=== PATIENT | female | born 1940 | race Hispanic/Latino ===

== ENCOUNTER → 2017-07-29 | Outpatient (CLI) | payer MEDICARE ==
[~2017-07-29] MED LIST: ALENDRONATE SOD70 MG PO; ANTIVERT25 MG PO; BACTROBAN15 G1; CYCLOBENZAPRINE10 MG PO; DOXYCYCLINE HY100 M2 IV; FLONASE16 GM NS; FLUNISOLIDE25 M1; GLUCOSAMINE HC500 MG PO; HYDROCODON-ACE1 EA12 PO; IBUPROFEN400 MG PO; LEVOCETIRIZINE D5 MG PO; LOSARTAN POTAS100 MG PO; NEXIUM40 M1 PO; NYSTATIN100000 UNI PO; PATANASE30.5 GM; PEDIADERM TA 0115 GM; POLYETHYLENE GL17 GM PO; PROAIR HFA INH8.5 GM INH; SYMBICORT 16010.2 GM INH; TESSALON PERLE100 MG PO; TOPROL XL100 MG PO; VENTOLIN HFA18 GM INH; VITAMIN C500 M1 PO; VITAMIN D35000 UNIT PO; VITAMIN E400 UNI4 PO; VOLTAREN100 GM; ZOFRAN4 MG SL
--- NOTE | 2017-07-30 00:37 | Diagnostic Imaging Report ---
History: Cough and sinus congestion for one month. Comparison studies: None Technique: Axial images were obtained through the paranasal sinuses. Coronal and sagittal images reconstructed from the axial data. Intravenous contrast: None Findings: Right anterior complex: Frontal sinus: Clear. Frontonasal recess: Clear. Anterior ethmoid air cells: Minimal mucosal thickening Ostiomeatal unit: Mild mucosal thickening narrows the osteomeatal unit Maxillary sinus: Mild circumferential mucosal thickening with bubbly secretions. Left anterior complex: Frontal sinus: Clear. Frontonasal recess: Mild mucosal thickening Anterior ethmoid air cells: Minimal mucosal thickening. Ostiomeatal unit: Mucosal thickening results in near complete obstruction of the osteomeatal unit. Maxillary sinus: Moderate circumferential mucosal thickening. Posterior complex: Sphenoid sinuses: Mild mucosal thickening in right sphenoid sinus. Sphenoethmoidal recesses: Not well visualized Posterior ethmoid air cells: Clear. Other: Nasal vestibule and cavity: Patent Nasal septum: At midline. Agger Nasi: Minimal mucosal thickening Turbinates: Partially pneumatized right middle turbinate. Aurelia cells: None Lamina papyracea: Intact. Cribriform plates: Symmetric, 3.8 mm on the right and 3.6 mm on the left below the level of the fovea ethmoidalis. Olfactory recesses: Clear Optic nerves: Not dehiscent Onodi cells: None Internal carotid arteries: from the sphenoid sinuses by thin osseous septum Sphenoid sinuses: Mild mucosal thickening in right sphenoid sinus. The lateral recesses are aerated on the left, opacified on right. Sphenoid septum: Deviated towards the right. Orbits: No abnormalities. Bones: No abnormalities. Temporal bones: Mild opacification of the posterior and inferior aspect of left mastoid air cells/mastoid tip. IMPRESSION: 1. Mild mucosal inflammatory changes in right maxillary, ethmoid air cells, left ethmoid and right sphenoid sinuses. 2. Moderate mucosal inflammatory changes in left maxillary sinus. Signed by: Dr. Ludy Cook M.D. on 07/30/2017 12:34 AM
== END ==
LOC: CT 18:25
PROVIDERS: ATTEND Otolaryngology
DX: J32.8 Other chronic sinusitis (principal)
CPT/HCPCS: 70486

== ENCOUNTER → 2018-06-16 | Outpatient (CLI) | payer MEDICARE ==
[~2018-06-16] MED LIST changes: +SODIUM CHLORIDE 0.9% 500ML 0 ML ONE
[2018-06-16 18:34] LABS: CREATININE, SERUM 1.18 mg/dL (0.57-1.11)
--- NOTE | 2018-06-17 08:46 | Diagnostic Imaging Report ---
EXAM: CT Chest without contrast DATE/TIME: 06/16/2018 12:00 AM INDICATION: Hemoptysis COMPARISON: CT Abdomen/Pelvis 11/18/[address] Chest 07/17/2017. TECHNIQUE: Chest was scanned utilizing a multidetector helical scanner from the lung apex through the level of the adrenal glands without administration of IV contrast. Coronal and sagittal reformations were obtained. Routine protocol was performed. RADIATION DOSE: Total DLP: 832.2 mGy*cm Estimated effective dose: (DLP x 0.014 x size factor) mSv COMPLICATIONS: None FINDINGS: LINES/ TUBES: None. LUNGS AND AIRWAYS: The central airways are patent. Patchy dependent bilateral lower lobe subsegmental atelectasis. Biapical pleural parenchymal opacity, left greater than right. There is a 3 mm likely calcified solid pulmonary nodule in the left upper lobe on series 107, image 62, unchanged from 07/17/2017. PLEURA: The pleural spaces are clear. HEART AND MEDIASTINUM: The thyroid gland is normal. No mediastinal, hilar or axillary lymphadenopathy. No pericardial effusion. There is no pericardial effusion. Atherosclerotic calcifications of the aortic arch and great vessel origins are noted. The main pulmonary artery measures 3.4 cm. Ectatic ascending thoracic aorta measuring 3.7 cm. UPPER ABDOMEN: Limited non-contrast views of the upper abdomen show no abnormality within the visualized kidneys or adrenal glands. There is mild hyperdense appearance of the liver measuring 81 HU. There is a 1.8 cm hypodense lesion in the posterior right hepatic lobe, with slightly increased calcifications compared to abdominal CT from 11/09/2014, likely a result of prior infection or trauma. Extensive atherosclerotic changes of the abdominal aorta. Subcentimeter splenic lesion is too small to characterize but unchanged in size compared to CT on 11/18/2014. BONES AND SOFT TISSUES: No acute bony findings. Multilevel degenerative changes of the visualized spine. IMPRESSION: No acute intrathoracic findings on CT. Enlarged main pulmonary artery measuring up to 3.4 cm, suggestive of pulmonary arterial hypertension. Mildly increased hepatic density which could reflect medication related changes or conditions such as iron deposition. Signed by: Dr. Sharon Patricio MD on 06/17/2018 8:42 AM
== END ==
LOC: CT 17:38
PROVIDERS: ATTEND Otolaryngology
DX: R04.2 Hemoptysis (principal)
CPT/HCPCS: 36415; 71250; 82565; 84520; J7040

== ENCOUNTER → 2018-12-29 | Day surgery (SDC) | payer MEDICARE ==
[2018-12-23 16:43] LABS: BASOPHILS % 0.3 % (0.0-1.0); EOSINOPHILS # (AUTO) 0.1 (0.0-0.4); HEMATOCRIT 33.7 % (34.2-44.1); LYMPHOCYTES # (AUTO) 1.7 (1.0-3.2); MEAN CORPUSCULAR HEMOGLOBIN 30.6 pg (28-32); MEAN CORPUSCULAR HGB CONC 32.6 g/dL (31-35); MEAN CORPUSCULAR VOLUME 93.6 fL (81-99); MONOCYTES # (AUTO) 0.6 (0.2-0.8); MONOCYTES % 9.9 % (4.4-11.3); NEUTROPHILS # (AUTO) 3.4 (2.1-6.9); NEUTROPHILS % 59.6 % (38.7-80.0); PLATELET COUNT 230 x10e3/uL (140-360); RED CELL DISTRIBUTION WIDTH 13.9 % (11.7-14.4)
--- NOTE | 2018-12-23 17:07 | Diagnostic Imaging Report ---
Frontal and lateral views of the chest. HISTORY: PREOP, carpal tunnel surgery COMPARISON: CT of the chest June 16, 2018. DISCUSSION: Lungs: The lungs appear mildly hyperinflated. No evidence of a consolidative pneumonia or pulmonary alveolar edema. Pleura: No pleural effusion or pneumothorax. Heart and mediastinum: The cardiomediastinal silhouette appears unremarkable. Bones and soft tissues: Multilevel mild to moderate degenerative changes of the thoracic spine. IMPRESSION: 1. No acute radiographic abnormality. 2. Findings which could be seen in the setting of mild COPD. Signed by: Dr. Elliot Valentin D.O., M.M.M. on 12/23/2018 5:04 PM
[~2018-12-29] MED LIST changes: +ALLEGRA ALLERG180 MG PO; +AMIODARONE HCL200 MG PO; +BENZONATATE100 MG PO; +BUPIVACAINE HCL 0.5% INJ 30 ML VIAL INJ ONE; +CEFAZOLIN SOD 1 GM/NS 50ML 0 ML IV ONE; +CLINDAMYCIN 600MG / 50ML 0 ML IV ONE; +DEXAMETHASONE SOD PHOS INJ 4 MG/ML VIAL ONE; +FUROSEMIDE40 MG PO; +GARLIC500 MG PO; +KETOROLAC TROMETHAMINE 30 MG/ML VIAL ONE; +LIDOCAINE HCL 2% LOCAL INJ 5 ML SDV VIAL INJ ONE; +MEPERIDINE HCL INJ 25 MG/ML VIAL ONE; +METOPROLOL SUCC50 MG PO; +MONTELUKAST SOD10 MG PO; +MULTI-VITAMIN1 EACH PO; +ONDANSETRON HCL INJ 2MG/ML 2ML 2 MG/ML VIAL ONE; +OSTEOFLEX PO; +PONARIS NASAL E30 ML; +PROPOFOL IV EMULSION 10 MG/ML 20 ML VIAL ONE; +REFRESH TEARS15 ML OU; +SALINE NOSE SPR45 ML; +SEVOFLURANE INHAL SOLN 250 ML PEN BTL ONE; -SODIUM CHLORIDE 0.9% 500ML 0 ML ONE; +SOMA350 MG PO; +SUCRALFATE1 GM PO; +TIZANIDINE HCL4 MG PO; +albuterol neb INH; +eliquis PO; +tumeric PO
--- OUTSIDE RECORDS SUMMARY | 2018-12-29 05:12 | XMS REPORT | Clinical Summary ---
Author Author [facility] Organization [facility] Address Unknown Phone Unavailable Care Team Providers Care Electrolysis Engineer Name Role Phone Bradley Dooley MD PCP Allergies Comments Active Allergy Reactions Severity Noted Date Amoxicillin 11/03/2018 Erythromycin 11/03/2018 Medications End Date Status Medication Sig Dispensed Refills Start Date Active metoprolol succinate XL 0 (TOPROL-XL) 50 mg 24 hr 8 tablet Active NEXIUM 40 mg capsule 0 9 Active amIODarone (PACERONE) 200 0 MG tablet 9 Active multivitamin (THERAGRAN) Take 1 tablet 0 tablet by mouth daily. Active cyclobenzaprine Take 10 mg by 0 (FLEXERIL) 10 mg tablet mouth 3 (three) times a day as needed for muscle spasms. Active budesonide-formoterol Inhale 2 0 (SYMBICORT) 160-4.5 puffs 2 (two) mcg/actuation inhaler times a day. Active albuterol (PROAIR Inhale 2 0 HFA,PROVENTIL puffs every 6 HFA,VENTOLIN HFA) 90 (six) hours mcg/actuation inhaler as needed for wheezing. Active eucalyptus/peppermint oil into each 0 (PONARIS NASL) nostril. Active carboxymethylcellulose Apply to eye. 0 sodium (REFRESH TEARS OPHT) Active fexofenadine (EFRAÍN) Take 180 mg 0 180 MG tablet by mouth daily. Active garlic extract 600 mg Take by 0 tablet mouth. Active sodium chloride (OCEAN) 1 spray into 0 0.65 % nasal spray each nostril as needed. Active apixaban (ELIQUIS) 5 mg Take by mouth 0 tablet 2 (two) times a day. Active glucosam/yoanna-msm1/C/jimmie Take by 0 /bosw (OSTEO BI-FLEX mouth. TRIPLE STRENGTH ORAL) Active sucralfate (CARAFATE) 1 Take 1 g by 0 gram tablet mouth 4 (four) times a day. Active UNABLE TO FIND meclison 0 Active ondansetron (ZOFRAN) 4 MG Take 4 mg by 0 tablet mouth every 8 (eight) hours as needed for nausea or vomiting. Active carisoprodol (SOMA) 350 Take 350 mg 0 MG tablet by mouth 4 (four) times a day as needed for muscle spasms. Active montelukast (SINGULAIR) Take 10 mg by 0 10 mg tablet mouth nightly. Active olopatadine (PATANOL) 0.1 1 drop 2 0 % ophthalmic solution (two) times a day. Active fluticasone propionate Inhale. 0 100 mcg/actuation blister with device Active tiZANidine (ZANAFLEX) 4 Take 4 mg by 0 MG tablet mouth every 8 (eight) hours as needed for muscle spasms. Active TURMERIC ORAL Take by 0 mouth. Active levothyroxine (SYNTHROID, Take 25 mcg 0 LEVOXYL) 25 mcg tablet by mouth daily. Active furosemide (LASIX) 40 mg Take 40 mg by 0 tablet mouth 2 (two) times a day. Active Problems Not on file Encounters Care Team Description Date Type Specialty Erich Jacob MD FLEXIBLE BRONCHOSCOPY 11/23/2018 Surgery Cardiothoracic Surgery Whit Bryson 11/23/2018 Anesthesia Cardiothoracic Surgery Event Erich Jacob MD 11/23/2018 Hospital Cardiothoracic Surgery Encounter Brandie Dodge NP 11/20/2018 Telephone Cardiothoracic Surgery Erich Jacob MD 11/05/2018 Orders Only Cardiothoracic Surgery Erich Jacob MD 11/03/2018 Hospital Radiology Encounter Erich Jacob MD 11/03/2018 Hospital Radiology Encounter Erich Jacob MD 11/03/2018 Hospital Radiology Encounter Erich Jacob MD 11/03/2018 Hospital Radiology Encounter Erich Jacob MD 11/03/2018 Hospital Radiology Encounter Erich Jacob MD Endobronchial mass (Primary Dx); Pre-op testing 11/03/2018 Office Visit Cardiothoracic Surgery Andrés Preston 11/03/2018 Telephone Employee Health Padmini Tao MD 11/03/2018 Orders Only Cardiothoracic Surgery ProviderPadmini MD 10/15/2018 Orders Only Cardiothoracic Surgery after 12/28/2017 Family History Medical History Relation Name Comments Anesthesia problems Daughter Margaret Chambers nausea vomiting Cirilo Breast cancer Daughter Jessica Sharma surviver of breast cancer Cirilo Relation Name Status Comments Daughter Margaret Kerr Daughter Jessica Kerr Social History Date Tobacco Use Types Packs/Day Years Used Never Smoker Alcohol Use Drinks/Week oz/Week Comments No Sex Assigned at Date Recorded Not on file Industry Job Start Date Occupation Not on file Not on file Not on file Travel End Travel History Travel Start No recent travel history available. Last Filed Vital Signs Time Taken Vital Sign Reading 11/23/2018 1:06 PM CDT Blood Pressure 144/65 11/23/2018 1:06 PM CDT Pulse 61 11/23/2018 1:06 PM CDT Temperature 36.3 C (97.4 F) 11/23/2018 1:06 PM CDT Respiratory Rate 18 11/23/2018 1:06 PM CDT Oxygen Saturation 99% - Inhaled Oxygen - Concentration 11/23/2018 9:56 AM CDT Weight 78.9 kg (173 lb 14.4 oz) 11/23/2018 9:56 AM CDT Height 167.6 cm (5' 6") 11/23/2018 9:56 AM CDT Body Mass Index 28.07 Plan of Treatment Health Maintenance Due Date Last Done Comments SHINGLES VACCINES (#1) 1992 65+ PNEUMOCOCCAL VACCINE 2007 (1 of 2 - PCV13) PNEUMOCOCCAL 2007 POLYSACCHARIDE VACCINE AGE 65 AND OVER INFLUENZA VACCINE 03/11/2019 Procedures Comments Procedure Name Priority Date/Time Associated Diagnosis CT AN ELECTIVE Routine 11/23/2018 ENDOTRACHEAL AIRWAY 11:01 AM CDT Procedure Note - Ophelia May MD - 11/23/2018 11:01 AM CDT Airway Date/Time: 11/23/2018 10:46 AM Performed by: Ophelia May MD Authorized by: Ophelia May MD Location: OR Urgency: Elective Anesthesio logist: Ophelia May MD Other Anesthesia Staff: Cecile Collins Performed by: other anesthesia staff Preoxygena maty with 100% O2: Yes C-spine Precaution s Maintained Throughout : Yes Mask Ventilatio n: Easy mask Final Airway Type: Endotrache al airway Final Endotrache al Airway: ETT Cuffed: Yes Technique Used: Direct laryngosco py Devices/Me thods Used in Placement: Intubatin g stylet Insertion Site: Oral Blade Type: Quiroga Laryngosco pe Blade/Vide olaryngosc ope Blade Size: 2 ETT Size (mm): 8.0 Cuff at minimum occlusion pressure: Yes Measured from: Teeth ETT to Teeth (cm): 22 Placement Verified by: CO2 detection, direct visualizat ion and equal breath sounds Laryngosco pic view: Grade IIa - partial view of glottis Rapid Sequence Induction (RSI): No Modified RSI: Yes Number of Attempts at Approach: 2 Patient pre-oxygen ated x5 minutes. Modified RSI. DLx1 by SRNA with Quiroga 2. Grade 4 view. Mask ventilated patient. O2 sats remained 100%. DL by SRNA; grade 2 view. Visualized ETT passing through vocal cords. Atraumatic intubation . No change to eyes, lips, teeth, or oral mucosa. Cuff to seal. ETT secured. PARTIAL THROMBOPLASTIN STAT 11/23/2018 TIME (PTT) 9:25 AM CDT PROTHROMBIN TIME WITH INR STAT 11/23/2018 9:25 AM CDT CBC WITH PLATELET AND Routine 11/05/2018 DIFFERENTIAL 4:42 PM CDT PROTHROMBIN TIME WITH INR Routine 11/05/2018 4:42 PM CDT PARTIAL THROMBOPLASTIN Routine 11/05/2018 TIME (PTT) 4:42 PM CDT COMPREHENSIVE METABOLIC Routine 11/05/2018 PANEL 4:[address] CHEST EXTERNAL STUDY Routine 06/16/2018 7:15 [address] EDUCATOR [address] CHEST WO CONTRAST Routine 06/16/2018 after 12/28/2017 Results * Partial thromboplastin time, activated (11/23/2018 9:25 AM CDT) Only the most recent of 2 results within the time period is included. PTT 26.5 23.0 - 36.0 sec [facility] Comment: EPISCOPAL PTT therapeutic range for HOSPITAL unfractionated heparin is 61.0-112.0 seconds which corresponds to Anti-Xa 0.3-0.7 U/ml. Specimen Blood Performing Organization Address City/State/Zipcode Phone Number [facility] DEPARTMENT OF [address] [place] [address] PATHOLOGY AND [facility] [address] * Prothrombin time with INR (11/23/2018 9:25 AM CDT) Only the most recent of 2 results within the time period is included. [facility] Prothrombin 13.1 11.5 - 14.5 sec [facility] INR 1.0 [place] Comment: EPISCOPAL The International Normalized HOSPITAL Ratio (INR) is a therapeutic monitoring tool for patients who are stable on oral anticoagulant therapy. An INR of 2.0-3.0 is suggested for deep vein thrombosis/pulmonary embolism. Specimen Blood Performing Organization Address City/State/[place] [address] PATHOLOGY AND [facility] [address] * CBC with platelet and differential (11/05/2018 4:42 PM CDT) [facility] WBC 4.6 3.8 - 10.8 [facility] Thousand/uL [facility] [place] RBC 3.61 (L) 3.80 - 5.10 [facility] Million/uL [facility] [place] HGB 11.0 (L) 11.7 - 15.5 g/dL [facility] HCT 33.5 (L) 35.0 - 45.0 % [facility] MCV 92.8 80.0 - 100.[address] [facility] MCH 30.5 27.0 - 33.0 pg [facility] [place] MCHC 32.8 32.0 - 36.0 g/dL [facility]AGNOSTICS [place] RDW 11.8 11.0 - 15.0 % [facility] Platelet count 294 140 - 400 [facility] Thousand/uL [facility] MPV 10.4 7.5 - 12.5 fL [facility] [place] Neutrophils, 2,898 1,500 - 7,800 [facility] absolute cells/uL [facility] [place] Lymphocytes, 1,164 850 - 3,900 cells/uL [facility] absolute [facility] [place] Monocytes, 474 200 - 950 cells/uL [facility] absolute [facility] [place] Eosinophils, 32 15 - 500 cells/uL [facility] absolute [facility] [place] Basophils, 32 0 - 200 cells/uL [facility] absolute [facility] [place] Neutrophils 63 % [facility] [place] Lymphocytes 25.3 % [facility] [place] Monocytes 10.3 % [facility] [place] Eosinophils 0.7 % [facility] [place] Basophils + RC 0.7 % [facility] [place] Specimen Narrative Performed At FASTING:NO [facility] FASTING: NO Resulting Agency Comment Performing Organization Information: Site ID: [id number] Name: [facility] Address: [address] [place] [id number] Director: Ryann Clinton Performing Organization Address City/State/Zipcode Phone Number THAN[facility] CAMACHO [address] [address] * Comprehensive metabolic panel (11/05/2018 4:42 PM CDT) Glucose 115 65 - 139 mg/dL [facility] Comment: DIAGNOSTICS Non-fasting [place] reference interval BUN, whole 26 (H) 7 - 25 mg/dL [employer] blood [facility] [place] Creatinine 0.94 (H) 0.60 - 0.93 mg/dL [facility] Comment: DIAGNOSTICS For patients >49 years of age, [place] the reference limit for Creatinine is approximately 13% higher for people identified as -Tongan. EGFR Non-Afr. 59 (L) > OR=60 [facility] [place] mL/min/1.73m2 [facility] [place] EGFR 68 > OR=60 [facility] [place] mL/min/1.73m2 [facility] [place] BUN/creatinine 28 (H) 6 - 22 (calc) [facility] ratio [facility] [place] Sodium 140 135 - 146 mmol/L [facility] [place] Potassium 4.4 3.5 - 5.3 mmol/L [facility] [place] Chloride 102 98 - 110 mmol/L [facility] [place] CO2 32 20 - 32 mmol/L [facility] [place] Calcium 9.4 8.6 - 10.4 mg/dL [facility] [place] Protein 6.2 6.1 - 8.1 g/dL [facility] [place] Albumin, S 3.8 3.6 - 5.1 g/dL [facility] [place] Globulin, total 2.4 1.9 - 3.7 g/dL [facility] (calc) [facility] [place] Albumin/globuli 1.6 1.0 - 2.5 (calc) [facility] n ratio [facility] [place] Total bilirubin 0.3 0.2 - 1.2 mg/dL [facility] [place] Alkaline 86 33 - 130 U/L [facility] phosphatase [facility] [place] AST 18 10 - 35 U/L [facility] [place] ALT 12 6 - 29 U/L [facility] [place] Specimen Narrative Performed At FASTING:NO [facility] FASTING: NO Resulting Agency Comment Performing Organization Information: Site ID: [id number] Name: [facility] Address: [address] [place] [address] Director: Ryann Clinton Performing Organization Address City/State/Zipcode Phone Number [facility]AN[facility] CAMACHO [place] [address] [place], [place] [phone] * CT Chest External Study (06/16/2018 7:15 PM COMMUNITY HEALTH EDUCATOR) Specimen Narrative Performed At This exam was not acquired at a [facility] facility and has not been [facility] interpreted by a [facility] Provider.The exam was imported into our imaging system for comparisons purposes. Performing Organization Address City/State/Zipcode Phone Number [facility] [address] [place] [address] * CT Chest Wo Contrast (06/16/2018) Narrative Performed At after 12/28/2017 Insurance Type Payer Benefit Subscriber ID Effective Phone Address Plan / Dates Group Medicare MEDICARE MEDICARE xxxxxxxxxxx 2002-P [place], PART A AND resent [place] B Medicaid MEDICAID MEDICAID xxxxxxxxx 2011-P resent Advance Directives Patient has advance care planning documents on file. For more information, prabhjot sharma contact: [facility] [address] [place] [address]
--- OUTSIDE RECORDS SUMMARY | 2018-12-29 05:13 | XMS REPORT | Continuity of Care Document ---
Author Author [facility] Organization [facility] Address Unknown Phone Unavailable Care Team Providers Care Line Assigner Name Role Phone Ronni REBOLLAR, Torsten ARNDT Unavailable Insurance Providers Payer name Policy type / Coverage type Policy ID Covered democrat ID Policy [place] [facility] [place] - [place] - [place] [employer] [place]: [employer] [place] [employer] Encounters Encounter Performer Location Date Office Visit Torsten Rudolph MD [facility] Cardiology [address] May 04, 2013 Problems Problem Effective Dates Problem Status FATIGUE Feb 18, 2013 Active DYSPNEA Feb 18, 2013 Active HYPERTENSION, BENIGN ESSENTIAL Feb 18, 2013 Active RIGHT BUNDLE BRANCH BLOCK Feb 18, 2013 Active CHEST PAIN Feb 18, 2013 Active Procedures Date Description Comments Feb 18, 2013 smoking status never smoker Mar 29, 2013 smoking status never smoker May 04, 2013 smoking status never smoker Medications Medication Instructions Start Date Status CALCIUM 600 MG TABS 1 tab po Twice a day Feb 12, 2011 Active NEXIUM 40 MG CPDR 1 capsule po Once a day Jun 26, 2011 Active METOPROLOL SUCCINATE ER 100 MG [id number] 1 tab po Once a day Jul 03, 2011 Active CYCLOBENZAPRINE HCL 10 MG TABS 1 tab po Three times a day Jun 23, 2012 Active SYMBICORT 80-4.5 MCG/ACT AERO Twice a day Feb 19, 2012 Inactive VENTOLIN HFA 108 (90 BASE) MCG/ACT AERS 2 puffs prn Apr 16, 2011 Inactive CETIRIZINE HCL 10 MG TABS 1 tab po Once a day Jul 01, 2012 Inactive BENZONATATE 100 MG CAPS 2 caps po TID Jan 13, 2013 Active NYSTATIN 253285 UNIT/ML SUSP for 10 days Feb 15, 2013 Active TERCONAZOLE 0.4 % CREA For 7 days Feb 15, 2013 Active SYMBICORT 160-4.5 MCG/ACT AERO 2 puffs bid Feb 08, 2013 Active PROAIR HFA 108 (90 BASE) MCG/ACT AERS prn Feb 08, 2013 Active LEVOCETIRIZINE DIHYDROCHLORIDE 5 MG TABS 1 po bid Feb 08, 2013 Active IBUPROFEN 400 MG TABS prn Feb 08, 2013 Active ASPIRIN 81 MG TABS 1 tab po Once a day Mar 24, 2013 Active HYDROCODONE-ACETAMINOPHEN 7.5-325 MG TABS As needed for pain Feb 23, 2013 Active DICLOFENAC SODIUM 0.1 % SOLN Once a day Mar 23, 2013 Active ALENDRONATE SODIUM 70 MG TABS 1 tab po Once a week Mar 24, 2013 Active FLUCONAZOLE 200 MG TABS 1 tab po twice a week Mar 17, 2013 Active PATANASE 0.6 % SOLN Twice a day Mar 23, 2013 Active ZETONNA 37 MCG/ACT AERS Once a day Mar 16, 2013 Active POLYETHYLENE GLYCOL 17 GM Once a day Mar 23, 2013 Active SODIUM CHLORIDE 0.65 % SOLN Once a day Mar 23, 2013 Active ATORVASTATIN CALCIUM 10 MG TABS 1 tab po Once a day Apr 13, 2013 Inactive Vital Signs Date Description Test Result Feb 18, 2013 height E&M - 8302-2 HEIGHT 66 in Feb 18, 2013 weight E&M - 3141-9 WEIGHT 199 lb Feb 18, 2013 blood pressure, systolic, sitting, left arm BP SYS SIT L 142 mm Hg Feb 18, 2013 blood pressure, diastolic, sitting, left arm BP RODRIGO SIT L 84 mm Hg Feb 18, 2013 pulse rate, sitting, left PULSE SIT L 86 /min Feb 18, 2013 blood pressure, systolic - 8480-6 BP SYSTOLIC 142 mm Hg Feb 18, 2013 pulse rate E&M - 8867-4 PULSE RATE 86 /min Feb 18, 2013 blood pressure, diastolic - 8462-4 BP DIASTOLIC 84 mm Hg Mar 29, 2013 weight E&M - 3141-9 WEIGHT 199 lb Mar 29, 2013 blood pressure, systolic, sitting, right arm BP SYS SIT R 144 null Mar 29, 2013 blood pressure, diastolic, sitting, right arm BP RODRIGO SIT R 80 mmHg Mar 29, 2013 pulse rate, sitting, right PULSE SIT R 82 /min Mar 29, 2013 blood pressure, systolic - 8480-6 BP SYSTOLIC 144 mm Hg Mar 29, 2013 pulse rate E&M - 8867-4 PULSE RATE 82 /min Mar 29, 2013 blood pressure, diastolic - 8462-4 BP DIASTOLIC 80 mm Hg May 04, 2013 weight E&M - 3141-9 WEIGHT 202 lb May 04, 2013 blood pressure, systolic, sitting, right arm BP SYS SIT R 120 null May 04, 2013 blood pressure, diastolic, sitting, right arm BP RODRIGO SIT R 70 mmHg May 04, 2013 pulse rate, sitting, right PULSE SIT R 84 /min May 04, 2013 blood pressure, systolic - 8480-6 BP SYSTOLIC 120 mm Hg May 04, 2013 pulse rate E&M - 8867-4 PULSE RATE 84 /min May 04, 2013 blood pressure, diastolic - 8462-4 BP DIASTOLIC 70 mm Hg Results Date Description Test Name Value Reference Interpretation Status Feb 18, 2013 hemoglobin, blood HGB 12.2 g/dL 12.0-16.0 Feb 18, 2013 hematocrit, blood HCT 37.3 % 36.0-48.0 Feb 18, 2013 platelet count PLATELETS 229 K/CMM /mm3 133-450 Feb 18, 2013 hemoglobin, blood HGB 12.2 g/dL 12.0-16.0 Feb 18, 2013 hematocrit, blood HCT 37.3 % 36.0-48.0 Feb 18, 2013 platelet count PLATELETS 229 K/CMM /mm3 133-450 Feb 18, 2013 sodium, serum SODIUM 140 MEQ/L mmol/L 135-145 Feb 18, 2013 potassium, serum POTASSIUM 4.6 MEQ/L mmol/L 3.5-5.1 Feb 18, 2013 creatinine, serum CREATININE 0.7 mg/dL 0.5-1.4 Feb 18, 2013 urea nitrogen, blood BUN 32 mg/dL 7-22 High Feb 18, 2013 urea nitrogen/creatinine ratio, serum BUN/CREAT 46 null 6-25 High Feb 18, 2013 albumin, serum ALBUMIN 4.1 g/dL 3.5-5.0 Feb 18, 2013 calcium, serum CALCIUM 9.2 mg/dL 8.5-10.5 Feb 18, 2013 alanine aminotransferase (SGPT), serum SGPT (ALT) 22 U/L 0-65 Feb 18, 2013 aspartate aminotransferase (SGOT), serum SGOT (AST) 20 U/L 0-37 Feb 18, 2013 alkaline phosphatase, serum ALK PHOS 72 U/L 39-136 Feb 18, 2013 thyroid stimulating hormone, serum TSH 1.410 uIU/mL 0.360-3.740 Feb 18, 2013 sodium, serum SODIUM 140 MEQ/L mmol/L 135-145 Feb 18, 2013 potassium, serum POTASSIUM 4.6 MEQ/L mmol/L 3.5-5.1 Feb 18, 2013 creatinine, serum CREATININE 0.7 mg/dL 0.5-1.4 Feb 18, 2013 urea nitrogen, blood BUN 32 mg/dL 7-22 High Feb 18, 2013 urea nitrogen/creatinine ratio, serum BUN/CREAT 46 null 6-25 High Feb 18, 2013 albumin, serum ALBUMIN 4.1 g/dL 3.5-5.0 Feb 18, 2013 calcium, serum CALCIUM 9.2 mg/dL 8.5-10.5 Feb 18, 2013 alanine aminotransferase (SGPT), serum SGPT (ALT) 22 U/L 0-65 Feb 18, 2013 aspartate aminotransferase (SGOT), serum SGOT (AST) 20 U/L 0-37 Feb 18, 2013 alkaline phosphatase, serum ALK PHOS 72 U/L 39-136 Feb 18, 2013 thyroid stimulating hormone, serum TSH 1.410 uIU/mL 0.360-3.740
--- OUTSIDE RECORDS SUMMARY | 2018-12-29 05:13 | XMS REPORT | Continuity of Care Document ---
Author Author [facility] Organization [facility] Address Unknown Phone Unavailable Care Team Providers Care Shaping Machine Operator Name Role Phone Ronni REBOLLAR, Torsten ARNDT Unavailable Insurance Providers Payer name Policy type / Coverage type Policy ID Covered libertarian ID Policy [place]: [facility] [employer] [place]: [place] - [place] - TRADITIONAL [place] [employer] [place] [employer] [place] - [place] - TRADITIONAL Encounters Encounter Performer Location Date Lab Report Torsten Rudolph MD [facility] Mar 28, 2013 Problems Problem Effective Dates Problem Status FATIGUE Feb 18, 2013 Active DYSPNEA Feb 18, 2013 Active HYPERTENSION, BENIGN ESSENTIAL Feb 18, 2013 Active RIGHT BUNDLE BRANCH BLOCK Feb 18, 2013 Active CHEST PAIN Feb 18, 2013 Active Procedures Date Description Comments Feb 18, 2013 smoking status never smoker Medications Medication Instructions Start Date Status CALCIUM 600 MG TABS 1 tab po Twice a day Feb 12, 2011 Active NEXIUM 40 MG CPDR 1 capsule po Once a day Jun 26, 2011 Active METOPROLOL SUCCINATE ER 100 MG [id number] 1 tab po Once a day Jul [...] po TID Jan 13, 2013 Active NYSTATIN 859605 UNIT/ML SUSP for 10 days Feb 15, [...] MG TABS prn Feb 08, 2013 Active Vital Signs Date Description Test Result Feb [...] - 8462-4 BP DIASTOLIC 80 mm Hg Results Date Description Test Name [...]
--- OUTSIDE RECORDS SUMMARY | 2018-12-29 05:13 | XMS REPORT | Continuity of Care Document ---
Author Author [facility] Organization [facility] Address Unknown Phone Unavailable Care Team Providers Care Returned Materials Inspector Name Role Phone Ronni REBOLLAR, Torsten ARNDT Unavailable Insurance Providers Payer name Policy type / Coverage type Policy ID Covered alliance party ID Policy [place]: [facility] [employer] [place]: [place] - [place] - TRADITIONAL [place] [employer] [place] [employer] [place] - [place] - TRADITIONAL Encounters Encounter Performer Location Date Office Visit Torsten Rudolph MD [facility] Mar 29, 2013 Problems Problem Effective Dates Problem Status FATIGUE Feb 18, 2013 Active DYSPNEA Feb 18, 2013 Active HYPERTENSION, BENIGN ESSENTIAL Feb 18, 2013 Active RIGHT BUNDLE BRANCH BLOCK Feb 18, 2013 Active CHEST PAIN Feb 18, 2013 Active Procedures Date Description Comments Feb 18, 2013 smoking status never smoker Mar 29, 2013 smoking status never smoker Medications Medication Instructions Start Date Status CALCIUM 600 MG TABS 1 tab po Twice a day Feb 12, 2011 Active NEXIUM 40 MG CPDR 1 capsule po Once a day Jun 26, 2011 Active METOPROLOL SUCCINATE ER 100 MG [id number] 1 tab po Once a day Jul [...] po TID Jan 13, 2013 Active NYSTATIN 172769 UNIT/ML SUSP for 10 days Feb 15, [...]
--- OUTSIDE RECORDS SUMMARY | 2018-12-29 05:13 | XMS REPORT | Continuity of Care Document ---
Author Author [facility] Organization [facility] Address Unknown Phone Unavailable Care Team Providers Care Astronomy Instructor Name Role Phone Ronni REBOLLAR, Torsten ARNDT Unavailable Insurance Providers Payer name Policy type / Coverage type Policy ID Covered green party ID Policy [place] [facility] [place]: ACS - [place] - TRADITIONAL [place] [employer] [place] [employer] [place] - [place] - TRADITIONAL [place] [employer] Encounters Encounter Performer Location Date Lab Report Torsten Rudolph MD [facility] [place] May 09, 2013 Problems Problem Effective Dates Problem Status [...] 2011 Active METOPROLOL SUCCINATE ER 100 MG [id number] 1 tab po Once a day Jul [...] po TID Jan 13, 2013 Active NYSTATIN 633460 UNIT/ML SUSP for 10 days Feb 15, [...]
--- OUTSIDE RECORDS SUMMARY | 2018-12-29 05:13 | XMS REPORT | Continuity of Care Document ---
Author Author [facility] Organization [facility] Address Unknown Phone Unavailable Care Team Providers Care Purification Director Name Role Phone Ronni REBOLLAR, Torsten ARNDT Unavailable Insurance Providers Payer name Policy type / Coverage type Policy ID Covered libertarian ID Policy [employer] [facility] [place] ACS - [place] - TRADITIONAL [place] [employer] Encounters Encounter Performer Location Date Lab Report Torsten Rudolph MD [facility] [address] Feb 18, 2013 Problems Problem Effective Dates Problem Status [...] 2011 Active METOPROLOL SUCCINATE ER 100 MG [id number] 1 tab po Once a day Jul [...] po TID Jan 13, 2013 Active NYSTATIN 849256 UNIT/ML SUSP for 10 days Feb 15, [...] - 8462-4 BP DIASTOLIC 84 mm Hg Results Date Description Test Name [...]
--- OUTSIDE RECORDS SUMMARY | 2018-12-29 05:13 | XMS REPORT | Continuity of Care Document ---
Author Author [facility] Interface Address Unknown Phone Unavailable Problems Problem Status Onset Date Classification Date Reported Comments Source Radiculopathy, cervicothoracic region 07/13/2018 11/27/2018 [facility] Iron deficiency anemia, unspecified 06/05/2018 [facility] [id number], [id number], IRON DEFICIENCY ANEMIA Active 04/15/2018 [facility] IRON DEFICIENCY ANEMIA, UNSPECIFIED Active 03/11/2018 [facility] I48.91 Active 09/12/2017 [facility] G44.52 - NEW DAILY PERSISTENT HEADACHE Active 04/25/2017 [facility] PRE-OPERATIVE CARDIOVASCULAR EXAMINATION Active 01/19/2015 Condition 01/19/2015 [facility] Preoperative cardiovascular examination<sup>5, 6</sup> Active 01/19/2015 Problem 12/24/2018 Data migrated from [employer] on 02/15/15. [facility] CHOLELITHIASIS Active 01/11/2015 [facility] [id number], [id number]---HSLIRJAHG, ABDOMINAL PAIN Active 12/07/2014 [facility] 786.50 Active 03/29/2013 [facility] FATIGUE Active 02/18/2013 Condition 01/19/2015 [facility] DYSPNEA Active 02/18/2013 Condition 01/19/2015 [facility] HYPERTENSION, BENIGN ESSENTIAL Active 02/18/2013 Condition 01/19/2015 [facility] RIGHT BUNDLE BRANCH BLOCK Active 02/18/2013 Condition 01/19/2015 [facility] CHEST PAIN Active 02/18/2013 Condition 01/19/2015 [facility] Right bundle branch block<sup>5</sup> Active 02/18/2013 Problem 01/23/2015 5Data migrated from [employer] on 01/09/15. [facility] Benign essential hypertension<sup>1</sup> Active 02/18/2013 Problem 12/24/2018 Data migrated from [employer] on 01/09/15. ERIK De Los Santos,[facility] Chest pain<sup>2</sup> Active 02/18/2013 Problem 12/24/2018 Data migrated from [employer] on 01/09/15. ERIK De Los Santos,[facility], [facility] Fatigue<sup>3</sup> Active 02/18/2013 Problem 12/24/2018 Data migrated from [employer] on 01/09/15. ERIK De Los Santos,[facility], [facility] Pleurisy<sup>4</sup> Active 02/18/2013 Problem 12/24/2018 Data migrated from [employer] on 01/09/15. ERIK De Los Santos,[facility], [facility] Right bundle branch block<sup>7</sup> Active 02/18/2013 Problem 12/24/2018 Data migrated from [employer] on 01/09/15. ERIK De Los Santos, [facility] Acid reflux status Active Problem 04/03/2013 [facility] Arthritis Resolved Problem 04/03/2013 [facility] BP+ - Hypertension Resolved Problem 04/03/2013 [facility] Muscle spasm - tone Resolved Problem 04/03/2013 [facility] SOB - Shortness of breath Active Problem 04/03/2013 [facility] Diastolic CHF, acute Active Problem 12/24/2018 [facility], ERIK De Los Santos,[facility] [place],[facility] Arthritis Resolved Problem 12/24/2018 ERIK De Los Santos,[facility], [facility] Atrial fibrillation Active Problem 12/24/2018 [facility], ERIK De [place] Santos,[facility] [place],[facility] BP+ - Hypertension Resolved Problem 12/24/2018 ERIK De Los Santos,[facility], [facility] Cardiomegaly Active Problem 12/24/2018 [facility], ERIK De [place],[facility] [place],[facility] Cholelithiasis Active Problem 12/24/2018 ERIK De Los Santos,[facility], [facility] Muscle spasm - tone Resolved Problem 12/24/2018 ERIK De Los Santos,[facility], [facility] Obesity Active Problem 12/24/2018 ERIK De Los Santos, [facility] Pulmonary embolism Resolved Problem 12/24/2018 [facility], ERIK De Los Santos, ERIK [place],[facility] Right bundle branch block Resolved Problem 12/24/2018 [facility], OPIMati De Los Santos, OPID [place],[facility] SOB - Shortness of breath Active Problem 12/24/2018 ERIK De Los Santos,[facility], [facility] Acid reflux status Active Problem 08/10/2017 ERIK De Los Santos,[facility], [facility] Hypertensive heart disease with heart failure 12/24/2017 [facility] Acute diastolic heart failure 12/24/2017 [facility] Unspecified right bundle-branch block 12/24/2017 [facility] Nonrheumatic mitral insufficiency 12/24/2017 [facility] Obesity, unspecified 12/24/2017 [facility] Personal history of pulmonary embolism 12/24/2017 [facility] 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 12/24/2017 [facility] 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 12/24/2017 [facility] Body mass index 33.0-33.9, adult 12/24/2017 [facility] Diastolic CHF, chronic Active Problem 12/24/2018 [facility], ERIK De Los Santos,[facility] [place],[facility] Paroxysmal atrial fibrillation Active Problem 12/24/2018 [facility], ERIK De Los [place],[facility] [place],[facility] Procedure and treatment not carried out because of other contraindication 11/01/2018 [facility] Benign neoplasm of ascending colon 11/15/2018 [facility] Benign neoplasm of cecum 11/15/2018 [facility] Diverticulosis of large intestine without perforation or abscess without bleeding 11/15/2018 [facility] Residual hemorrhoidal skin tags 11/15/2018 [facility] Other hemorrhoids 11/15/2018 [facility] Gastritis, unspecified, without bleeding 11/15/2018 [facility] Disorder of thyroid, unspecified 11/15/2018 [facility] Diaphragmatic hernia without obstruction or gangrene 11/15/2018 [facility] Disease of stomach and duodenum, unspecified 11/15/2018 [facility] Unspecified asthma, uncomplicated 11/15/2018 [facility] Unspecified atrial fibrillation 11/15/2018 [facility] Gastro-esophageal reflux disease without esophagitis 11/15/2018 [facility] Rheumatoid arthritis, unspecified 11/15/2018 [facility] Essential hypertension 11/15/2018 [facility] Age-related osteoporosis without current pathological fracture 11/15/2018 [facility] Dyskinesia of esophagus 12/19/2018 [facility] [place] Diverticulosis of small intestine without perforation or abscess without bleeding 12/19/2018 [facility] [place] Spondylosis without myelopathy or radiculopathy, cervical region 11/27/2018 [facility] Other specified deforming dorsopathies, cervical region 11/27/2018 [facility] Spinal stenosis, cervical region 11/27/2018 [facility] Other specified diseases of spinal cord 11/27/2018 [facility] CHEST PAIN NOS Active [facility] UNSPECIFIED ATRIAL FIBRILLATION Active [facility] Medications Medication Details Route Status Patient Instructions Ordering Provider Order Date Source metoprolol 50 mg oral tablet, extended release 50 mg=1 tab, PO, Daily, X 90 day, # 90 tab, 3 Refill(s), Pharmacy: [facility] [id number] No Longer Active 05/05/2018 [facility] Feosol PO, 0 Refill(s) Active 11/11/2017 [facility] Vitamin B6 Daily, 0 Refill(s) Active 11/11/2017 [facility] Tylenol PO, 0 Refill(s) Active 11/11/2017 [facility] Peptic Relief 262 mg oral tablet, chewable 524 mg=2 tab, CHEW, QID, 0 Refill(s) Active 11/11/2017 [facility] tizanidine 4 mg oral tablet 4 mg=1 tab, PO, Bedtime, PRN for muscle spasm, # 30 tab, 0 Refill(s) Active 11/11/2017 [facility] ondansetron 4 mg oral tablet 8 mg=2 tab, PO, Q6H, 0 Refill(s) Active 09/17/2017 [facility] cyclobenzaprine 10 mg oral tablet 10 mg=1 tab, PO, TID, PRN for spasms, 0 Refill(s) Active 09/17/2017 [facility] ciprofloxacin 500 mg oral tablet 500 mg=1 tab, PO, Q12H, 0 Refill(s) Active 09/17/2017 [facility] AMIODarone 200 mg oral tablet 200 mg=1 tab, PO, BID, pt to take bid for 2 wks, then once daily, # 120 tab, 3 Refill(s), Pharmacy: [facility] [id number] Active 08/07/2017 [facility] apixaban 5 MG Oral Tablet [Eliquis] 5 mg=1 tab, PO, BID, # 180 tab, 3 Refill(s), Pharmacy: [facility] [id number] Active 08/07/2017 [facility] metoprolol 50 mg oral tablet, extended release 50 mg=1 tab, PO, Daily, # 90 tab, 1 Refill(s), Pharmacy: [facility] [id number] Active 08/07/2017 [facility] losartan 50 mg oral tablet 50 mg=1 tab, PO, BID, 0 Refill(s) Active 08/07/2017 [facility] Lactated Ringers IV 1000 mL 1,000 mL, Rate: 50 ml/hr, Infuse over: 20 hr, Route: IV, Dosing Weight 78.182 kg, Total Volume: 1,000, Start date: 01/20/15 8:42:00, Duration: 30 day, Stop date: 02/19/15 8:41:00 Inactive 01/20/2015 [facility] Morphine 2 mg, Route: IVP, Q3H, Dosing Weight 78.182, kg, PRN Pain Score 1-3, Start date: 01/20/15 8:42:00, Duration: 30 day, Stop date: 02/19/15 8:41:00 Inactive 01/20/2015 [facility] Acetaminophen 325 MG / Hydrocodone Bitartrate 5 MG Oral Tablet 1 tab, Route: PO, Dosing Weight 78.182, kg, Q4H, PRN Pain Score 4-6, Start date: 01/20/15 8:42:00, Duration: 30 day, Stop date: 02/19/15 8:41:00 Inactive 01/20/2015 [facility] Diphenhydramine 12.5 mg, 0.25 mL, Route: IVP, Drug form: INJ, Q6H, Dosing Weight 78.182, kg, PRN Itching, Start date: 01/20/15 7:54:00, Duration: 30 day, Stop date: 02/19/15 7:53:00Notes: (Same as: Benadryl) Inactive 01/20/2015 [facility] Ondansetron 4 mg, 2 mL, Route: IVP, Drug form: INJ, ONCE, Dosing Weight 78.182, kg, PRN Nausea & Vomiting, Start date: 01/20/15 7:54:00Notes: (Same as: Tasha) MEDICATION WASTE Product Size: 4 mg Product Wasted: ___ mg Inactive 01/20/2015 [facility] Morphine 2 mg, 0.2 mL, Route: IVP, Drug form: INJ, Q5Min, Dosing Weight 78.182, kg, PRN Pain Score 4-6, Start date: 01/20/15 7:54:00, Duration: 5 doses or times, Stop date: Limited # of timesNotes: (Same as:M ORPhine Sulfate) Inactive 01/20/2015 [facility] Hydromorphone 0.5 mg, 0.25 mL, Route: IVP, Drug form: INJ, Q5Min, Dosing Weight 78.182, kg, PRN Pain Score 7-10, Start date: 01/20/15 7:54:00, Duration: 4 doses or times, Stop date: Limited # of timesNotes: (Same as: Dilaudid) Inactive 01/20/2015 [facility] Flumazenil 0.2 mg, 2 mL, Route: IVP, Drug form: INJ, PRN, Dosing Weight 78.182, kg, PRN Benzodiazepine Reversal, Initial dose, Start date: 01/20/15 7:54:00, Duration: 30 day, Stop date: 02/19/15 7:53:00Notes: ( Same as: Romazicon) Inactive 01/20/2015 [facility] Naloxone 0.04 mg, 0.1 mL, Route: IVP, Drug form: INJ, Q2MIN, Dosing Weight 78.182, kg, PRN Narcotic Reversal, Start date: 01/20/15 7:54:00, Duration: 8 doses or times, Stop date: Limited # of timesNotes: Same as Narcan Inactive 01/20/2015 [facility] Hydralazine 10 mg, 0.5 mL, Route: IVP, Drug form: INJ, Q20Min, Dosing Weight 78.182, kg, PRN Elevated BP, Start date: 01/20/15 7:54:00, Duration: 2 doses or times, Stop date: Limited # of timesNotes: (Same as: A presoline) Push over 5 minutes Inactive 01/20/2015 [facility] Labetalol 10 mg, 2 mL, Route: IVP, Drug form: INJ, Q5Min, Dosing Weight 78.182, kg, PRN Elevated BP, Start date: 01/20/15 7:54:00, Duration: 5 doses or times, Stop date: Limited # of timesNotes: (Same as: Norm odyne, Trandate) Push over 2 minutes Give bolus over 2-3 minutes. Inactive 01/20/2015 [facility] ceFAZolin 2 gm, 100 mL, Route: IVPB, Drug form: INJ, ONCALL, Start date: 01/20/15 1:00:00, Duration: 18 hr, Stop date: 01/20/15 18:59:00Notes: Same as: Ancef Inactive 01/20/2015 [facility] cyclobenzaprine 10 mg oral tablet 10 mg, PO, TID, PRN Muscle Spasm, # 30 tab, 0 Refill(s) Active 12/14/2014 [facility] olopatadine 2 spray, NASAL, BID, 0 Refill(s) Active 12/14/2014 [facility] losartan 100 mg oral tablet 100 mg=1 tab, PO, Daily, # 30 tab, 0 Refill(s) Active 12/14/2014 [facility] fluconazole 200 mg oral tablet 200 mg=1 tab, PO, Daily, # 10 tab, 0 Refill(s) Active 12/14/2014 [facility] montelukast 10 mg oral tablet 10 mg=1 tab, PO, Bedtime, # 30 tab, 0 Refill(s) Active 12/14/2014 [facility] Symbicort 160/4.5 inhalation aerosol with adapter 2 puff, INHALATION, BID, # 6 gm, 0 Refill(s) Active 12/14/2014 [facility] Acetaminophen 325 MG Oral Tablet [Tylenol] 325 mg=1 tab, PO, Q4H, PRN Pain, # 60 tab, 0 Refill(s) Active 12/14/2014 [facility] 120 ACTUAT fluticasone furoate 0.0275 MG/ACTUAT Nasal Inhaler 1 spray, NASAL, Daily, PRN for allergy symptoms, # 10 gm, 0 Refill(s) Active 12/14/2014 [facility] Esomeprazole 40 MG Enteric Coated Capsule [Nexium] 40 mg=1 cap, PO, Daily, # 30 cap, 0 Refill(s) Active 12/14/2014 [facility] Ondansetron 4 mg, 2 mL, Route: IVP, Drug form: INJ, ONCE, Dosing Weight 76.364, kg, PRN Nausea & Vomiting, Start date: 12/14/14 13:52:00Notes: (Same as: Tasha) MEDICATION WASTE Product Size: 4 mg Product Wasted: ___ mg No Longer Active 12/14/2014 [facility] Naloxone 0.04 mg, 0.1 mL, Route: IVP, Drug form: INJ, Q2MIN, Dosing Weight 76.364, kg, PRN Narcotic Reversal, Start date: 12/14/14 13:52:00, Duration: 8 doses or times, Stop date: Limited # of timesNotes: Same as Narcan No Longer Active 12/14/2014 [facility] Flumazenil 0.2 mg, 2 mL, Route: IVP, Drug form: INJ, PRN, Dosing Weight 76.364, kg, PRN Benzodiazepine Reversal, Initial dose, Start date: 12/14/14 13:52:00, Duration: 30 day, Stop date: 01/13/15 13:51:00Notes: (Same as: Romazicon) No Longer Active 12/14/2014 [facility] LOSARTAN POTASSIUM 100 MG TABS 1 tab po Once a day Active 12/14/2014 [facility] CETIRIZINE HCL 10 MG TABS 1 tab po Once a day Active 12/14/2014 [facility] MELOXICAM 15 MG TABS 1 tab po Once a day Active 12/14/2014 [facility] PEPCID 20 MG TABS 1 tab po Twice a day Active 12/14/2014 [facility] ALENDRONATE SODIUM 70 MG TABS 1 tab po Once a week Active 12/14/2014 [facility] TYLENOL EXTRA STRENGTH 500 MG TABS 1 tab po Twice a day Active 12/14/2014 [facility] ALBUTEROL SULFATE NEBU 2 puffs Every 4 hrs Active 12/14/2014 [facility] OLOPATADINE HCL 0.6 % SOLN Active 12/14/2014 [facility] FLUTICASONE PROPIONATE SUSP Active 12/14/2014 [facility] PONARIS SOLN Once a day Active 12/14/2014 [facility] REFRESH OPTIVE SOLN Active 12/14/2014 [facility] VITAMIN C 500 MG TABS 1 tab po Once a day Active 12/14/2014 [facility] VITAMIN E 400 UNIT TABS 1 tab po Once a day Active 12/14/2014 [facility] OSTEO BI-FLEX ADV TRIPLE ST TABS 1 tab po Twice a day Active 12/14/2014 [facility] VITAMIN B6 200 MG TABS 1 tab po Twice a day Active 12/14/2014 [facility] B-12 2500 MCG TABS 1 tab po Once a day Active 12/14/2014 [facility] VITAMIN D3 86654 UNIT CAPS 2 capsule po Once a day Active 12/14/2014 [facility] FISH OIL 1000 MG CAPS 2 capsules po Once a day Active 12/14/2014 [facility] EFRAÍN ALLERGY 180 MG TABS 1 tab po Once a day Active 12/14/2014 [facility] ATORVASTATIN CALCIUM 10 MG TABS 1 tab po Once a day No Longer Active 04/13/2013 [facility] ATORVASTATIN CALCIUM 10 MG TABS 1 tab po Once a day No Longer Active 04/13/2013 [facility] ASPIRIN 81 MG TABS 1 tab po Once a day Active 03/24/2013 [facility] ALENDRONATE SODIUM 70 MG TABS 1 tab po Once a week Active 03/24/2013 [facility] ASPIRIN 81 MG TABS 1 tab po Once a day No Longer Active 03/24/2013 [facility] ALENDRONATE SODIUM 70 MG TABS 1 tab po Once a week No Longer Active 03/24/2013 [facility] DICLOFENAC SODIUM 0.1 % SOLN Once a day Active 03/23/2013 [facility] PATANASE 0.6 % SOLN Twice a day Active 03/23/2013 [facility] POLYETHYLENE GLYCOL 17 GM Once a day No Longer Active 03/23/2013 [facility] SODIUM CHLORIDE 0.65 % SOLN Once a day No Longer Active 03/23/2013 [facility] DICLOFENAC SODIUM 0.1 % SOLN Once a day No Longer Active 03/23/2013 [facility] PATANASE 0.6 % SOLN Twice a day No Longer Active 03/23/2013 [facility] FLUCONAZOLE 200 MG TABS 1 tab po twice a week Active 03/17/2013 [facility] FLUCONAZOLE 200 MG TABS 2 tabs po twice a week Active 03/17/2013 [facility] ZETONNA 37 MCG/ACT AERS Once a day No Longer Active 03/16/2013 [facility] HYDROCODONE-ACETAMINOPHEN 7.5-325 MG TABS As needed for pain Active 02/23/2013 [facility] HYDROCODONE-ACETAMINOPHEN 7.5-325 MG TABS As needed for pain No Longer Active 02/23/2013 [facility] NYSTATIN 720201 UNIT/ML SUSP for 10 days Active 02/15/2013 [facility] TERCONAZOLE 0.4 % CREA For 7 days No Longer Active 02/15/2013 [facility] NYSTATIN 365783 UNIT/ML SUSP for 10 days No Longer Active 02/15/2013 [facility] SYMBICORT 160-4.5 MCG/ACT AERO 2 puffs bid Active 02/08/2013 [facility] PROAIR HFA 108 (90 BASE) MCG/ACT AERS prn No Longer Active 02/08/2013 [facility] LEVOCETIRIZINE DIHYDROCHLORIDE 5 MG TABS 1 po bid Active 02/08/2013 [facility] IBUPROFEN 400 MG TABS prn Active 02/08/2013 [facility] LEVOCETIRIZINE DIHYDROCHLORIDE 5 MG TABS 1 po bid No Longer Active 02/08/2013 [facility] IBUPROFEN 400 MG TABS prn No Longer Active 02/08/2013 [facility] BENZONATATE 100 MG CAPS 2 caps po TID Active 01/13/2013 [facility] BENZONATATE 100 MG CAPS 2 caps po TID No Longer Active 01/13/2013 [facility] CETIRIZINE HCL 10 MG TABS 1 tab po Once a day No Longer Active 07/01/2012 [facility] CETIRIZINE HCL 10 MG TABS 1 tab po Once a day No Longer Active 07/01/2012 [facility] CYCLOBENZAPRINE HCL 10 MG TABS 1 tab po Three times a day Active 06/23/2012 [facility] CYCLOBENZAPRINE HCL 10 MG TABS 1 tab po Three times a day Active 06/23/2012 [facility] SYMBICORT 80-4.5 MCG/ACT AERO Twice a day No Longer Active 02/19/2012 [facility] SYMBICORT 80-4.5 MCG/ACT AERO Twice a day No Longer Active 02/19/2012 [facility] METOPROLOL SUCCINATE ER 100 MG [id number] 1 tab po Once a day Active 07/03/2011 [facility] METOPROLOL SUCCINATE ER 100 MG [id number] 1 tab po Once a day No Longer Active 07/03/2011 [facility] NEXIUM 40 MG CPDR 1 capsule po Once a day Active 06/26/2011 [facility] VENTOLIN HFA 108 (90 BASE) MCG/ACT AERS 2 puffs prn No Longer Active 04/16/2011 [facility] VENTOLIN HFA 108 (90 BASE) MCG/ACT AERS 2 puffs prn No Longer Active 04/16/2011 [facility] CALCIUM 600 MG TABS 1 tab po Twice a day Active 02/12/2011 [facility] CALCIUM 600 MG TABS 1 tab po Twice a day Active 02/12/2011 [facility] Allergies, Adverse Reactions, Alerts Substance Category Reaction Severity Reaction type Status Date Reported Comments Source clindamycin Assertion Drug allergy Active [facility] Immunizations Immunization Date Given Site Status Last Updated Comments Source Results Order Name Results Value Reference Range Date Interpretation Comments Source Brain wo contrast MRI Brain wo contrast MRI EXAM: MRI BRAIN WITHOUT CONTRAST DATE: 12/19/2018 9:21 CDT INDICATION: R41.3 Other amnesia - R41.3 Other amnesia COMPARISON: MRI brain with without contrast 05/04/2017 TECHNIQUE: Multiplanar, multisequence MRI of the brain without contrast. IV contrast: None. FINDINGS: Images are limited by patient motion. Diffusion-weighted images fail demonstrate any recent ischemic change. No extra- axial fluid collections or intracranial mass effect. Foci of T2 and FLAIR hyperintense signal in the supratentorial white matter likely represent chronic microangiopathic change. Chronic lacunar infarct in the left thalamus with associated susceptibility likely representing hemosiderin deposition related to remote hemorrhage. There are several scattered tiny foci of cortical susceptibility in the cerebral hemispheres which may represent chronic microhemorrhages. Mild generalized cerebral volume loss with compensatory enl argement of ventricles and sulci. No hydrocephalus. Major intracranial flow voids are preserved. Mild mucosal thickening in the paranasal sinuses. Left mastoid effusion. Prior bilateral cataract surgery. Impression: Images limited by motion. No significant interval change. Mild chronic microangiopathic changes. Mild generalized cerebral volume loss within normal limits for age. Chronic lacunar infarct in the left caudate. Scattered small foci susceptibility in the cerebral hemispheres may represent chronic microhemorrhages 12/19/2018 - - Read by: More Eubanks MD Dictated Date/time: 12/21/18 11:08 Electronically Signed by: More Eubanks MD 12/21/18 11:27 FINAL REPORT DELMI De Los Santos Upper GI air contrast w Small Bowel DX Upper GI air contrast w Small Bowel DX EXAM: FLUOROSCOPY barium UPPER GI DOUBLE CONTRAST with small bowel follow-through DATE: 06/01/2018 8:30 AM CDT INDICATION: - D50.9 Iron deficiency anemia, unspecified ADDITIONAL INFORMATION: None. COMPARISON: None. TECHNIQUE: Upper GI was performed using double contrast technique orally. Serial images were then obtained until contrast reached the right colon. Fluoroscopic small bowel evaluation was then performed. FLUOROSCOPY TIME: 1 minute 55 seconds Images obtained: 45 total (no exposures) DISCUSSION: Preliminary radiograph: Normal. Swallowing: Normal. Esophagus: Tortuous. The aortic arch causes mass effect on the midthoracic esophagus. No mucosal lesion or narrowing. Frequent tertiary contractions. Hiatal hernia: None. Gastroesophageal reflux: None. Stomach: Normal. Duodenum: Diverticulum. Jejunal: Unremarkable Ileum: Unremarkable including the normal terminal ileum. Small bowel transit time: Approximately 2 hours and 30 minutes IMPRESSION: 1. Mild esophageal dysmotility. Otherwise unremarkable upper gastrointestinal series 2. Duodenal diverticulum 3. Slightly delayed small bowel transit time without clearly identified source for anemia. 06/01/2018 - - Read by: Kevan Horan MD Dictated Date/time: 06/01/18 14:41 Electronically Signed by: Kevan Horan MD 06/01/18 14:54 FINAL REPORT DELMI LINGMati Garcia Spine cervical wo contrast MRI Spine cervical wo contrast MRI EXAM: Spine cervical wo contrast MRI DATE: 05/10/2018 1:26 PM CDT . ORDERING PHYSICIAN: Rebecca Paige MD CLINICAL INDICATION: M54.13 Radiculopathy, cervicothoracic region - M54.13 Radiculopathy, cervicothoracic region; TECHNIQUE: Multiplanar, multisequence MRI cervical spine without IV contrast COMPARISON: June 14, 2017 cervical MRI FINDINGS: VISUALIZED INTRACRANIAL CONTENTS: Unremarkable. CRANIOCERVICAL JUNCTION: The cerebellar tonsils are in normal position. SPINAL CORD: No definite cord signal abnormality. No definite dural based lesion. VERTEBRAE: The vertebrae are normal in height. The lordosis is straightened. No focal suspicious bone marrow signal abnormality. PARASPINAL SOFT TISSUES: No edema or masses DISC LEVELS, SPINAL CANAL, NEURAL FORAMINA: Craniocervical junction: No stenosis C1-C2: No subluxation, ligamentous pannus formation, or stenosis C2-C3: Intervertebral disc height and signal are maintained. Posterior elements are normal.There is no stenosis. C3-C4: Desiccated disc with circumferential disc osteophyte complex. There is left greater than right facet and uncinate hypertrophy. Central canal measures 11 mm. There is severe narrowing of the left neural foramen. C4-C5: There is subtle grade 1 anterolisthesis of C4 relative to C5. The disc is dehydrated with small annular pseudobulge and central zone fissuring. There is mild facet hypertrophy. Central canal measures 12 mm. There is subtle left ventral spinal cord deformity mm. Neural foramina are patent. C5-C6: Desiccated disc with circumferential disc osteophyte complex. Facets are unremarkable. There is left uncinate hypertrophy. Central canal measures 11 mm. There is ventral spinal cord deformity. There is moderate narrowing of the left neural foramen. C6-C7: Desiccated disc with circumferential disc osteophyte complex. Facets and uncinate processes are unremarkable. Central canal measures 10 mm with effacement of CSF space and slight ventral spinal cord deformity. There is mild narrowing of the left neural foramen. C7-T1: Intervertebral disc height and signal are maintained. The left facets are enlarged. Central canal measures 13 mm. There is mild narrowing of the left neural foramen. IMPRESSION: 1. Stable multilevel spondylosis with partial effacement of ventral CSF space and ventral spinal cord deformity but no evidence of myelopathy 2. Potentially significant neural foramen narrowings on the left at C3-4 and C5-6 05/10/2018 - - Read by: Kevan Horan MD Dictated Date/time: 05/10/18 14:52 Electronically Signed by: Kevan Horan MD 05/10/18 14:59 FINAL REPORT [facility] HEMATOLOGY POC Hematocrit 33.0 % 36.0 - 48.0 04/28/2018 [facility] HEMATOLOGY POC Sodium 145 meq/L 135 - 145 04/28/2018 [facility] HEMATOLOGY POC Potassium 4.3 meq/L 3.5 - 5.1 04/28/2018 [facility] HEMATOLOGY POC Glucose 115 mg/dL 70 - 99 04/28/2018 [facility] HEMATOLOGY POC Hemoglobin 11.2 g/dL 12.0 - 16.0 04/28/2018 [facility] ELECTROLYTES POC Potassium 4.1 meq/L 3.5 - 5.1 04/14/2018 [facility] ELECTROLYTES POC Glucose 126 mg/dL 70 - 99 04/14/2018 [facility] ELECTROLYTES POC Sodium 143 meq/L 135 - 145 04/14/2018 [facility] ELECTROLYTES POC Hemoglobin 11.6 g/dL 12.0 - 16.0 04/14/2018 [facility] ELECTROLYTES POC Hematocrit 34.0 % 36.0 - 48.0 04/14/2018 [facility] CHEM PANEL eGFR 50 mL/min/1.73m2 09/17/2017 Result Comment: The eGFR is calculated using the CKD-EPI formula. In most young, healthy individuals the eGFR will be >90 mL/min/1.73m2. The eGFR declines with age. An eGFR of 60-89 may be normal in some populations, particularly the elderly, for whom the CKD-EPI formula has not been extensively validated. Use of the eGFR is not recommended in the following populations: Individuals with unstable creatinine concentrations, including patients and those with serious co-morbid conditions. Patients with extremes in muscle mass or diet. The data above are obtained from the National Kidney Disease Education Program (NKDEP) which additionally recommends that when the eGFR is used in patients with extremes of body mass index for purposes of drug dosing, the eGFR should be multiplied by the estimated BMI. [facility] CHEM PANEL POC Hematocrit 37.0 % 36.0 - 48.0 09/17/2017 [facility] CHEM PANEL POC Ion Ca 1.23 mMol/L 1.05 - 1.25 09/17/2017 [facility] CHEM PANEL POC Hemoglobin 12.6 g/dL 12.0 - 16.0 09/17/2017 [facility] CHEM PANEL POC Glucose 140 mg/dL 70 - 99 09/17/2017 [facility] CHEM PANEL POC AGAP 18.0 meq/L 10.0 - 20.0 09/17/2017 [facility] CHEM PANEL POC BUN 25 mg/dL 7 - 22 09/17/2017 [facility] CHEM PANEL POC Creatinine 1.1 mg/dL 0.5 - 1.4 09/17/2017 [facility] CHEM PANEL POC Carbon Dioxide 25 mEq/dL 24 - 32 09/17/2017 [facility] CHEM PANEL POC Chloride 105 meq/L 95 - 109 09/17/2017 [facility] CHEM PANEL POC Potassium 4.4 meq/L 3.5 - 5.1 09/17/2017 [facility] CHEM PANEL POC Sodium 142 meq/L 135 - 145 09/17/2017 [facility] ELECTROLYTES CO2 27 meq/L 24 - 32 09/12/2017 [facility] ELECTROLYTES Sodium Lvl 139 meq/L 135 - 145 09/12/2017 [facility] ELECTROLYTES Potassium Lvl 4.2 meq/L 3.5 - 5.1 09/12/2017 [facility] ELECTROLYTES Chloride Lvl 106 meq/L 95 - 109 09/12/2017 [facility] ELECTROLYTES Creatinine Lvl 1.20 mg/dL 0.50 - 1.40 09/12/2017 [facility] ELECTROLYTES BUN 34 mg/dL 7 - 22 09/12/2017 [facility] ELECTROLYTES Glucose Lvl 117 mg/dL 70 - 99 09/12/2017 [facility] ELECTROLYTES AGAP 10.2 meq/L 10.0 - 20.0 09/12/2017 [facility] ELECTROLYTES Calcium Lvl 9.2 mg/dL 8.5 - 10.5 09/12/2017 [facility] ELECTROLYTES eGFR 45 mL/min/1.73m2 09/12/2017 Result Comment: The eGFR is calculated using the CKD-EPI formula. In most young, healthy individuals the eGFR will be >90 mL/min/1.73m2. The eGFR declines with age. An eGFR of 60-89 may be normal in some populations, particularly the elderly, for whom the CKD-EPI formula has not been extensively validated. Use of the eGFR is not recommended in the following populations: Individuals with unstable creatinine concentrations, including patients and those with serious co-morbid conditions. Patients with extremes in muscle mass or diet. The data above are obtained from the National Kidney Disease Education Program (NKDEP) which additionally recommends that when the eGFR is used in patients with extremes of body mass index for purposes of drug dosing, the eGFR should be multiplied by the estimated BMI. [facility] Spine cervical wo contrast MRI Spine cervical wo contrast MRI EXAM: MRI CERVICAL SPINE WITHOUT CONTRAST DATE: 06/14/2017 7:22 AM CDT INDICATION: - M54.12 Radiculopathy, cervical region COMPARISON: None. TECHNIQUE: Multiplanar, multisequence noncontrast imaging of the cervical spine. IV contrast: None. FINDINGS: Images are somewhat limited by patient motion. The craniovertebral junction has a normal appearance. The cerebellar tonsils are in the normal position. Cervical vertebral bodies are normal in height. Minimal anterolisthesis of C4 on C5 and C7 on T1 by 2 mm. Multilevel degenerative change with loss of disc height and endplate osteophytes. C2-C3: No significant spinal canal or neural foraminal stenosis. C3-C4: Severe loss of disc height with endplate osteophytes. 3 mm posterior disc osteophyte complex mildly indents the ventral thecal sac without mass effect on the cord. Mild buckling of the ligamentum flavum. No significant spinal canal stenosis. Thecal sac measures 10 mm in midline AP dimension. Mild bilateral uncovertebral hypertrophy. Severe left greater than right facet arthropathy. Mild left foraminal stenosis. C4-C5: Severe loss of disc height with endplate osteophytes. No significant spinal canal or neural foraminal stenosis. Minimal anterolisthesis of C4 on C5 with associated 2 mm disc bulge. Mild right greater than left uncovertebral hypertrophy. Left greater than right facet arthropathy. C5-C6: Severe loss of disc height with endplate osteophytes. 4 mm disc osteophyte complex lateralizes to the right paracentral and subarticular zone mildly indents the ventral contour of the cord. The thecal sac measures 10.5 mm in midline AP dimension without significant spinal canal stenosis. Bilateral uncovertebral hypertrophy. Left greater than right facet hypertrophy. Moderate left foraminal stenosis. C6/C7: Severe loss of disc height with endplate osteophytes. 4 mm posterior disc osteophyte complex lateralizes toward the right paracentral and subarticular zone. There may be minimal flattening of ventral contour of the cord on the right. No significant spinal canal stenosis. Bilateral uncovertebral hypertrophy. No significant neural foraminal stenosis. C7-T1: No significant spinal canal or neural foraminal stenosis. Minimal anterolisthesis of C7 on T1 with associated 2 mm disc pseudobulge. The cervical cord is normal in signal intensity. The paraspinous soft tissues are unremarkable. IMPRESSION: Multilevel degenerative change with severe loss of disc height and endplate osteophytes from C3-C4 through C6-C7. Right paracentral disc osteophyte complexes at C5-C6 and C6-C7 mildly flatten the right ventral surface of the cord without significant central spinal canal stenosis. Uncovertebral and facet arthropathy is seen throughout the cervical spine. Neural foraminal stenosis is greatest on the left at C5-C6 06/14/2017 - - Read by: More Eubanks MD Dictated Date/time: 06/16/17 12:10 Electronically Signed by: More Eubanks MD 06/16/17 12:31 FINAL REPORT [facility] Brain w/wo contrast MRI Brain w/wo contrast MRI EXAM: MRI BRAIN WITH AND WITHOUT CONTRAST DATE: 05/04/2017 8:08 AM CDT INDICATION: G44.52 New daily persistent headache (NDPH) - G44.52 New daily persistent headache (NDPH) COMPARISON: none. TECHNIQUE: Multiplanar, multisequence non-contrast MRI images of the brain. Multiplanar imaging is subsequently obtained following intravenous gadolinium contrast. IV contrast: 15cc Dotarem. FINDINGS: Diffusion-weighted images and correlative maps of apparent diffusion coefficient demonstrate no acute ischemic change. FLAIR hyperintense signal abnormalities in the supratentorial white matter may represent mild chronic microangiopathic change. No prior intracranial hemorrhage or mass effect. The ventricles and sulci are normal in size. The basal cisterns are patent. The cerebellar tonsils are normal position. The intracranial arterial and venous structures are normal in appearance. Post-contrast images reveal no abnormal parenchymal or leptomeningeal enhancement. The vascular structures enhance uneventfully. Left mastoid effusion. Mild mucosal thickening in the paranasal sinuses. Prior bilateral cataract surgery. IMPRESSION: No acute intracranial abnormality. No abnormal parenchymal or leptomeningeal enhancement. Mild chronic microangiopathic changes. Left mastoid effusion. 05/04/2017 - - Read by: More Eubanks MD Dictated Date/time: 05/05/17 08:55 Electronically Signed by: More Eubanks MD 05/05/17 09:07 FINAL REPORT [facility] BLOOD BANK RESULTS Antibody Scrn Negative (01/20/15 7:28 AM) 01/20/2015 [facility] BLOOD BANK RESULTS ABO/Rh O NEG 01/20/2015 [facility] Cholangiogram Intraoperative DX Cholangiogram Intraoperative DX Intraoperative cholangiogram HISTORY: Cholelithiasis DISCUSSION: Limited spot images were obtained for purposes of intraoperative cholangiogram. Contrast injection into the clamped cystic duct opacifies the common hepatic and common bile ducts. No filling defect is seen. Contrast is also seen in the duodenum. Fluoroscopy time: 18 seconds. IMPRESSION: Limited spot images for purposes of intraoperative cholangiogram as described. Please refer to operative note for further details. 01/20/2015 - - Read by: Alireza Guerrero MD Dictated Date/time: 01/20/15 09:59 Electronically Signed by: Alireza Guerrero MD 01/20/15 09:59 FINAL REPORT [facility] CHEM PANEL Glucose Lvl 113 mg/dL 70 - 99 01/13/2015 1Interpretive Data: Adult reference range values reflect the clinical guidelines of the [place] [employer]. [facility] ELECTROLYTES Potassium Lvl 3.8 meq/L 3.5 - 5.1 01/13/2015 [facility] ELECTROLYTES Sodium Lvl 142 meq/L 135 - 145 01/13/2015 [facility] HEMATOLOGY Hct 28.6 % 36.0 - 48.0 01/13/2015 [facility] HEMATOLOGY Hgb 9.1 g/dL 12.0 - 16.0 01/13/2015 [facility] CHEM PANEL POC Glucose 113 mg/dL 70 - 99 12/14/2014 [facility] CHEM PANEL POC Potassium 4.0 meq/L 3.5 - 5.1 12/14/2014 [facility] CHEM PANEL POC Sodium 143 meq/L 135 - 145 12/14/2014 [facility] CHEM PANEL POC Hematocrit 31.0 % 36.0 - 48.0 12/14/2014 [facility] CHEM PANEL POC Hemoglobin 10.5 g/dL 12.0 - 16.0 12/14/2014 [facility] CHEMISTRY LDL 164 mg/dL <=99 03/29/2013 [facility] CHEMISTRY Trig 108 mg/dL <=149 03/29/2013 Normal [facility] CHEMISTRY HDL 50 mg/dL >=61 03/29/2013 LOW [facility] CHEMISTRY Chol 236 mg/dL <=199 03/29/2013 [facility] CHEMISTRY CHD Risk 4.72 3.90 - 5.80 03/29/2013 Normal [facility] CHEMISTRY AGAP 21.2 meq/L 10.0 - 20.0 03/29/2013 [facility] CHEMISTRY B/C Ratio 30 6 - 25 03/29/2013 [facility] CHEMISTRY Globulin 3.5 g/dL 2.0 - 4.0 03/29/2013 Normal [facility] CHEMISTRY A/G Ratio 1.1 0.7 - 1.6 03/29/2013 Normal [facility] CHEMISTRY eGFR 88 mL/min/1.73m2 03/29/2013 NA 1Result Comment: The eGFR is calculated using the CKD-EPI formula. In most young, healthy individuals the eGFR will be >90 mL/min/1.73m2. The eGFR declines with age. An eGFR of 60-89 may be normal in some populations, particularly the elderly, for whom the CKD-EPI formula has not been extensively validated. Use of the eGFR is not recommended in the following populations: Individuals with unstable creatinine concentrations, including patients and those with serious co-morbid conditions. Patients with extremes in muscle mass or diet. The data above are obtained from the National Kidney Disease Education Program (NKDEP) which additionally recommends that when the eGFR is used in patients with extremes of body mass index for purposes of drug dosing, the eGFR should be multiplied by the estimated BMI. [facility] CHEMISTRY Alk Phos 83 unit/L 39 - 136 03/29/2013 Normal [facility] CHEMISTRY Albumin Lvl 3.9 g/dL 3.5 - 5.0 03/29/2013 Normal [facility] CHEMISTRY BUN 21 mg/dL 7 - 22 03/29/2013 Normal [facility] CHEMISTRY Glucose Lvl 104 mg/dL 70 - 99 03/29/2013 [place] 2Interpretive Data: Adult reference range values reflect the clinical guidelines of the [place] [employer]. [facility] CHEMISTRY Creatinine Lvl 0.7 mg/dL 0.5 - 1.4 03/29/2013 Normal [facility] CHEMISTRY Sodium Lvl 145 meq/L 135 - 145 03/29/2013 Normal [facility] CHEMISTRY Potassium Lvl 4.2 meq/L 3.5 - 5.1 03/29/2013 Normal [facility] CHEMISTRY ALT 17 unit/L 0 - 65 03/29/2013 Normal [facility] CHEMISTRY Calcium Lvl 9.1 mg/dL 8.5 - 10.5 03/29/2013 Normal [facility] CHEMISTRY Bili Total 0.4 mg/dL 0.2 - 1.3 03/29/2013 Normal [facility] CHEMISTRY Total Protein 7.4 g/dL 6.4 - 8.4 03/29/2013 Normal [facility] CHEMISTRY AST 16 unit/L 0 - 37 03/29/2013 Normal [facility] CHEMISTRY CO2 27 meq/L 24 - 32 03/29/2013 Normal [facility] CHEMISTRY Chloride Lvl 101 meq/L 95 - 109 03/29/2013 Normal [facility] HEMATOLOGY Hgb 11.9 g/dL 12.0 - 16.0 03/29/2013 LOW [facility] HEMATOLOGY Hct 35.0 % 36.0 - 48.0 03/29/2013 LOW [facility] HEMATOLOGY Platelet 258 K/CMM 133 - 450 03/29/2013 Normal [facility] HEMATOLOGY MPV 7.9 fL 7.4 - 10.4 03/29/2013 Normal [facility] HEMATOLOGY WBC 5.5 K/CMM 3.7 - 10.4 03/29/2013 Normal [facility] HEMATOLOGY MCV 90.1 fL 81.0 - 99.0 03/29/2013 Normal [facility] HEMATOLOGY RDW 13.0 % 11.5 - 14.5 03/29/2013 Normal [facility] HEMATOLOGY MCH 30.5 pg 27.0 - 31.0 03/29/2013 Normal [facility] HEMATOLOGY MCHC 33.9 g/dL 32.0 - 36.0 03/29/2013 Normal [facility] HEMATOLOGY RBC 3.88 M/CMM 4.20 - 5.40 03/29/2013 [facility] HEMATOLOGY Monocytes # 0.4 K/CMM 0.0 - 0.8 03/29/2013 Normal [facility] HEMATOLOGY Lymphocytes # 1.6 K/CMM 1.0 - 5.5 03/29/2013 Normal [facility] HEMATOLOGY Segs-Bands # 3.4 K/CMM 1.5 - 8.1 03/29/2013 Normal [facility] HEMATOLOGY Basophils 0.3 % 0.0 - 1.0 03/29/2013 Normal [facility] HEMATOLOGY Eosinophils # 0.0 K/CMM 0.0 - 0.5 03/29/2013 Normal [facility] HEMATOLOGY Basophils # 0.0 K/CMM 0.0 - 0.2 03/29/2013 Normal [facility] HEMATOLOGY Segs 61.9 % 45.0 - 75.0 03/29/2013 Normal [facility] HEMATOLOGY Monocytes 7.1 % 2.0 - 12.0 03/29/2013 Normal [facility] HEMATOLOGY Lymphocytes 29.8 % 20.0 - 40.0 03/29/2013 Normal [facility] HEMATOLOGY Eosinophils 0.9 % 0.0 - 4.0 03/29/2013 Normal [facility] HEMATOLOGY INR 0.92 0.85 - 1.17 03/29/2013 Normal 3Interpretive Data: RECOMMENDED RANGES FOR PROTIME INR: 2.0-3.0 for most medical and surgical thromboembolic states. 2.5-3.5 for artificial heart valves and recurrent embolism. INR SHOULD BE USED ONLY FOR PATIENTS ON STABLE ANTICOAGULANT THERAPY. [facility] HEMATOLOGY PTT 27.9 s 22.9 - 35.8 03/29/2013 Normal 4Interpretive Data: Heparin Therapeutic Range: 57 - 92 Seconds [facility] HEMATOLOGY PT 12.6 s 12.0 - 14.7 03/29/2013 Normal [facility] Chest 2 views Chest 2 views Chest 2 views: COMPARISON: Chest x-ray dated 05/05/2009. FINDINGS: There is a mild scoliosis of the thoracolumbar spine. The heart is within normal limits of size. Atherosclerotic calcifications are present within the thoracic aorta. The lungs are clear with no acute infiltrates or edema. The costophrenic sulci are clear. IMPRESSION: There is no obvious acute disease the chest. No significant change compared to previous study dated 05/05/2009 SL: 14 03/29/2013 - - Read by: Galindo Mon Dictated Date/time: 03/29/13 15:58 Electronically Signed by: Galindo Mon MD 03/29/13 16:00 FINAL REPORT [facility] Chemistry SODIUM 140 MEQ/L mmol/L 135 - 145 02/18/2013 [facility] Chemistry POTASSIUM 4.6 MEQ/L mmol/L 3.5 - 5.1 02/18/2013 [facility] Chemistry CREATININE 0.7 mg/dL 0.5 - 1.4 02/18/2013 [facility] Chemistry BUN 32 mg/dL 7 - 22 02/18/2013 [facility] Chemistry BUN/CREAT 46 6 - 25 02/18/2013 [facility] Chemistry ALBUMIN 4.1 g/dL 3.5 - 5.0 02/18/2013 [facility] Chemistry CALCIUM 9.2 mg/dL 8.5 - 10.5 02/18/2013 [facility] Chemistry SGPT (ALT) 22 U/L 0 - 65 02/18/2013 [facility] Chemistry SGOT (AST) 20 U/L 0 - 37 02/18/2013 [facility] Chemistry ALK PHOS 72 U/L 39 - 136 02/18/2013 [facility] Chemistry TSH 1.410 uIU/mL 0.360 - 3.740 02/18/2013 [facility] Chemistry SODIUM 140 MEQ/L mmol/L 135 - 145 02/18/2013 [facility] Chemistry POTASSIUM 4.6 MEQ/L mmol/L 3.5 - 5.1 02/18/2013 [facility] CREATININE 0.7 mg/dL 0.5 - 1.4 02/18/2013 [facility] BUN 32 mg/dL 7 - 22 02/18/2013 [facility] BUN/CREAT 46 6 - 25 02/18/2013 [facility] Chemistry ALBUMIN 4.1 g/dL 3.5 - 5.0 02/18/2013 [facility] CALCIUM 9.2 mg/dL 8.5 - 10.5 02/18/2013 [facility] SGPT (ALT) 22 U/L 0 - 65 02/18/2013 [facility] SGOT (AST) 20 U/L 0 - 37 02/18/2013 [facility] Chemistry ALK PHOS 72 U/L 39 - 136 02/18/2013 [facility] Chemistry TSH 1.410 uIU/mL 0.360 - 3.740 02/18/2013 [facility] Hematology HGB 12.2 g/dL 12.0 - 16.0 02/18/2013 [facility] Hematology HCT 37.3 % 36.0 - 48.0 02/18/2013 [facility] Hematology PLATELETS 229 K/CMM /mm3 133 - 450 02/18/2013 [facility] Hematology HGB 12.2 g/dL 12.0 - 16.0 02/18/2013 [facility] Hematology HCT 37.3 % 36.0 - 48.0 02/18/2013 [facility] Hematology PLATELETS 229 K/CMM /mm3 133 - 450 02/18/2013 [facility] Vital Signs Vital Sign Value Date Comments Source BMI Calculated 27.33 04/28/2018 [facility] Weight 76.818 04/28/2018 [facility] Height 167.64 cm 04/28/2018 [facility] BMI Calculated 27.5 04/14/2018 [facility] Height 167.64 cm 04/14/2018 [facility] Weight 77.273 04/14/2018 [facility] Systolic (mm Hg) 137 12/23/2017 [facility] Diastolic (mm Hg) 72 12/23/2017 [facility] Heart Rate 82 12/23/2017 [facility] Height 170.18 cm 12/23/2017 [facility] BMI Calculated 29.82 12/23/2017 [facility] Weight 86.364 12/23/2017 [facility] Weight 85.17 11/11/2017 [facility] Systolic (mm Hg) 164 11/11/2017 [facility] Diastolic (mm Hg) 75 11/11/2017 [facility] Heart Rate 91 11/11/2017 [facility] Height 167.64 cm 10/31/2017 [facility] Weight 85.455 10/31/2017 [facility] BMI Calculated 30.41 10/31/2017 [facility] Weight 84.545 09/30/2017 [facility] BMI Calculated 34.09 09/30/2017 [facility] Systolic (mm Hg) 153 09/30/2017 [facility] Diastolic (mm Hg) 76 09/30/2017 [facility] Heart Rate 87 09/30/2017 [facility] Height 157.48 cm 09/30/2017 [facility] Height 157.48 cm 09/17/2017 [facility] BMI Calculated 33.72 09/17/2017 [facility] Weight 83.636 09/17/2017 [facility] BMI Calculated 31.26 09/12/2017 [facility] Weight 85.199 09/12/2017 [facility] Height 165.1 cm 09/12/2017 [facility] Heart Rate 84 09/12/2017 [facility] Systolic (mm Hg) 118 09/12/2017 [facility] Diastolic (mm Hg) 74 09/12/2017 [facility] BMI Calculated 30.68 08/07/2017 [facility] Weight 83.636 08/07/2017 [facility] Height 165.1 cm 08/07/2017 [facility] Heart Rate 119 08/07/2017 [facility] Systolic (mm Hg) 135 08/07/2017 [facility] Diastolic (mm Hg) 93 08/07/2017 [facility] Systolic (mm Hg) 125 01/20/2015 [facility] Diastolic (mm Hg) 71 01/20/2015 [facility] Respitory Rate 16 01/20/2015 [facility] Systolic (mm Hg) 128 01/20/2015 [facility] Diastolic (mm Hg) 69 01/20/2015 [facility] Respitory Rate 16 01/20/2015 [facility] Systolic (mm Hg) 130 01/20/2015 [facility] Diastolic (mm Hg) 70 01/20/2015 [facility] Respitory Rate 16 01/20/2015 [facility] Weight 78.182 01/19/2015 [facility] Height 167.64 cm 01/19/2015 [facility] BMI Calculated 27.82 01/19/2015 [facility] Weight 176 01/19/2015 [facility] Systolic (mm Hg) 130 01/19/2015 [facility] Diastolic (mm Hg) 70 01/19/2015 [facility] Heart Rate 86 01/19/2015 [facility] Height 167.64 cm 01/13/2015 [facility] Weight 78.182 01/13/2015 [facility] BMI Calculated 27.82 01/13/2015 [facility] Weight 76.364 12/14/2014 [facility] BMI Calculated 27.17 12/14/2014 [facility] Height 167.64 cm 12/14/2014 [facility] Weight 202 05/04/2013 [facility] Systolic (mm Hg) 120 05/04/2013 [facility] Diastolic (mm Hg) 70 05/04/2013 [facility] Heart Rate 84 05/04/2013 [facility] Systolic (mm Hg) 140 04/01/2013 [facility] Diastolic (mm Hg) 63 04/01/2013 [facility] Respitory Rate 18 04/01/2013 [facility] Weight 90 03/29/2013 [facility] Height 167.64 cm 03/29/2013 [facility] Weight 199 03/29/2013 [facility] Systolic (mm Hg) 144 03/29/2013 [facility] Diastolic (mm Hg) 80 03/29/2013 [facility] Heart Rate 82 03/29/2013 [facility] Height 66 02/18/2013 [facility] Weight 199 02/18/2013 [facility] Systolic (mm Hg) 142 02/18/2013 [facility] Diastolic (mm Hg) 84 02/18/2013 [facility] Heart Rate 86 02/18/2013 [facility] Group Encounters Location Location Details Encounter Type Encounter Number Reason For Visit Attending Provider ADM Date DC Date Status Source [facility] Lab Report [id number] Virgilio Rudolph MD 02/18/2013 02/18/2013 Medical Group [facility] Medical [facility] Lab Report [id number] Virgilio Rudolph MD 03/28/2013 03/28/2013 Medical [facility] Cardiology SW Office Visit [id number] Virgilio Rudolph MD 03/29/2013 03/29/2013 Medical Group [facility] JIM [id number] Stan URDOLPH III 04/01/2013 04/01/2013 Active [facility] Cardiology SW Office Visit [id number] Virgilio Rudolph MD 05/04/2013 05/04/2013 Medical [facility] Lab Report [id number] Virgilio Rudolph MD 05/09/2013 05/09/2013 [facility] Bed[facility] Outpatient [id number] Whitney Miranda Rodolfoheatherjayne 12/14/2014 12/14/2014 [facility] Cardiology SW Office Visit [id number] Virgilio Rudolph MD 01/19/2015 01/19/2015 Medical [facility] OBS Day Surgery [id number] Danilo Awan 01/20/2015 01/20/2015 [facility] Outpatient [id number] VIRGILIO RUDOLPH 08/26/2016 Active [facility] [place] [facility] Di[facility] Services [id number] Isabel Palvadi 05/04/2017 05/05/2017 [facility] Outpatient [facility] [place] Out[facility] Diag Services [id number] Isabel Palvadi 06/14/2017 06/15/2017 [facility] Outpatient [id number] ECHO VISIT 08/06/2017 Active [facility] Cardiology [facility] Outpatient [id number] Virgilio Rudolph III 08/06/2017 08/07/2017 Medical Group Outpatient [id number] MORENO ADRLING 08/07/2017 Active [facility] Cardiology [place] Outpatient [id number] Moreno Darling 08/07/2017 08/08/2017 Medical [facility] Cardiology [place] Phone Message [id number] 08/20/2017 08/22/2017 Medical [facility] [id number] 09/05/2017 09/07/2017 Medical Group Outpatient [id number] MORENO DARLING 09/12/2017 Active [facility] [place] Outpatient [id number] Vasiliy Wiley 09/12/2017 09/13/2017 Medical [facility] Outpatient [id number] Moreno Darling 09/17/2017 09/18/2017 [facility] [id number] MORENO DARLING 09/30/2017 Active [facility] [place] Outpatient [id number] Vasiliy Wiley 09/30/2017 10/01/2017 [facility] Outpatient [id number] ECHO VISIT 10/01/2017 Active [facility] [place] Outpatient [id number] Vasiliy Hallieelpidiocarmen 10/01/2017 10/02/2017 [facility] Outpatient [id number] NUCLEAR SCAN VISIT 10/31/2017 Active [facility] [id number] PÉREZ YA 10/31/2017 Active [facility] Outpatient [id number] MORENO DARLING 10/31/2017 Active [facility] [place] Outpatient [id number] Vasiliy Sterlingjuvenciokaitlynn 10/31/2017 11/01/2017 Medical Group [facility]iology [place] Outpatient [id number] Moreno Darling 10/31/2017 11/01/2017 Medical Group [facility] [place] Outpatient [id number] Vasiliy Wiley 10/31/2017 11/01/2017 Medical Group [facility] Cardiology [place] Phone Message [id number] 11/04/2017 11/06/2017 Medical Group [facility] Cardiology [facility] Phone Message [id number] 11/10/2017 11/12/2017 Medical Group Outpatient [id number] PÉREZ YA 11/11/2017 Active [facility] [place] Outpatient [id number] Vasiliy Sterlingjuvenciokaitlynn 11/11/2017 11/12/2017 [facility] Outpatient [id number] PÉREZ YA 12/23/[address] [facility] [place] Outpatient [id number] Vasiliy Sterlingjuvenciokaitlynn 12/23/2017 12/24/2017 Medical Group Outpatient [id number] MORENO DARLING 12/29/[address] [facility] Cardiology [place] Ambulatory Pre-Reg [id number] Moreno Darling 12/29/2017 12/29/2017 Medical Group [facility] Cardiology [place] Phone Message [id number] 02/06/2018 02/08/2018 Medical Group Outpatient [id number] MORENO DARLING 02/10/[address] [facility] Pre-Reg [id number] Moreno Darling 02/10/2018 02/10/2018 Medical Group [facility] Cardiology [place] Outside Medical Records [id number] 04/03/2018 04/05/2018 Medical Group [facility] Bedded Outpatient [id number] Whitney Morse 04/14/2018 04/14/2018 [facility] Bedded Outpatient [id number] Whitney Mcnallypamjayne 04/28/2018 04/28/2018 [facility] Cardiology [place] Phone Message [id number] 05/04/2018 05/06/2018 Medical Group [facility] Outpatient Imaging [facility] Outpt Diag Services [id number] Rebecca Paige 05/10/2018 05/11/[address] [place] [facility] [place] Phone Message [id number] 05/15/2018 05/17/2018 Medical Group [facility] Outpatient [facility] [place] Outpt Diag Services [id number] Whitney Mcnallypamjayne 06/01/2018 06/02/2018 [facility] [place] [facility] Cardiology [place] Phone Message [id number] 06/05/2018 06/07/2018 Medical Group Outpatient [id number] ECHO VISIT 07/31/2018 [facility] Outpatient [id number] PÉREZ YA 07/31/2018 [facility] Outpatient [id number] MORENO DARLING 07/31/2018 [facility] Cardiology [place] Phone Message [id number] 09/04/2018 09/06/2018 Medical Group [facility] Cardiology [place] Outside Medical Records [id number] 11/23/2018 11/25/2018 Medical Group [facility] Outpatient [facility] [place] Outpt Diag Services [id number] Isabel Rose 12/19/2018 12/20/2018 [facility] [id number] MORENO DARLING 01/29/2019 [facility] Procedures Procedure Code Date Perfomer Comments Source Arthroplasty of hip, total, with use of methyl methacrylate 87592028 [facility] Arthroplasty of knee 35057825 [facility] Bladder operation 29963832 [facility] Cardiac catheterization<sup>1</sup> [id number] 2002 normal [facility] Cataract surgery [id number] [facility] Arthroplasty of hip, total, with use of methyl methacrylate 32963467 [facility] Arthroplasty of knee 13066863 [facility] Bladder operation [id number] [facility] Cataract surgery [id number] [facility] Arthroplasty of hip, total, with use of methyl methacrylate 29775422 [facility] Arthroplasty of knee 31753494 [facility] Bladder operation [id number] [facility] Cataract surgery [id number] [facility] Arthroplasty of hip, total, with use of methyl methacrylate 67910353 Medical [facility] Arthroplasty of knee 52958622 [facility] Bladder operation [id number] Medical [facility] Cardiac catheterization<sup>1</sup> [id number] 2002 normal Medical [facility] Cataract surgery [id number] Medical [facility] Arthroplasty of hip, total, with use of methyl methacrylate 59991468 [facility] Arthroplasty of knee 81577240 [facility] Bladder operation 74762568 [facility] Cardiac catheterization<sup>1</sup> [id number] 2002 normal [facility] Cataract surgery [id number] [facility] Cardiac catheterization<sup>1</sup> [id number] 2002 normal [facility] Arthroplasty of hip, total, with use of methyl methacrylate 87651077 [facility] Arthroplasty of knee 54077116 [facility] Bladder operation [id number] [facility] Cardiac catheterization<sup>1</sup> [id number] 2002 normal [facility] Cataract surgery [id number] [facility] Arthroplasty of hip, total, with use of methyl methacrylate 54767779 [facility] Arthroplasty of knee 20145732 [facility] Bladder operation [id number] [facility] Cardiac catheterization<sup>1</sup> [id number] 2003 normal [facility] Cataract surgery [id number] [facility]
--- OUTSIDE RECORDS SUMMARY | 2018-12-29 05:14 | XMS REPORT | Summary of Care ---
Author Author [facility] Outpatient Imaging [facility] Address Unknown Phone Unavailable Encounter RODERICK Israel(ADONIS) [id number] Date(s): 05/04/17 - 05/04/17 [facility] Outpatient Imaging [facility] [address] [place] [address]- Discharge Disposition: Home or Self Care Attending Physician: Isabel Rose MD Vital Signs No data available for this section Problem List Condition Effective Dates Status Health Status Informant Acid reflux Active status(Confirmed) Arthritis(Confirmed) Resolved Benign essential 02/18/13 Active hypertension1 BP+ - Resolved Hypertension(Confirm ed) Chest pain2 02/18/13 Active Cholelithiasis(Confi Active rmed) Fatigue3 02/18/13 Active Muscle spasm - Resolved tone(Confirmed) Obesity(Confirmed) Active Pleurisy4 02/18/13 Active Preoperative 01/19/15 Active cardiovascular examination5, 6 Right bundle branch 02/18/13 Active block7 SOB - Shortness of Active breath(Confirmed) 1Data migrated from [employer] on 01/09/15. 2Data migrated from [employer] on 01/09/15. 3Data migrated from [employer] on 01/09/15. 4Data migrated from [employer] on 01/09/15. 5Data migrated from [employer] on 02/15/15. 6Data migrated from [employer] on 02/15/15. 7Data migrated from [employer] on 01/09/15. Allergies, Adverse Reactions, Alerts Substance Reaction Severity Status NKDA Active Medications No data available for this section Results No data available for this section Immunizations No data available for this section Procedures Procedure Date Related Diagnosis Body Site Arthroplasty of hip, total, with use of methyl methacrylate Arthroplasty of knee Bladder operation Cardiac catheterization1 Cataract surgery 01213 normal Social History Social History Type Response Smoking Status Never smoker; Exposure to Tobacco Smoke None; Cigarette Smoking Last 365 Days No; Reg Smoking Cessation Counseling No Assessment and Plan No data available for this section
--- OUTSIDE RECORDS SUMMARY | 2018-12-29 05:14 | XMS REPORT | Summary of Care ---
Author Author [facility] Cardiology [facility] Organization [facility] Address Unknown Phone Unavailable Encounter HQ Jhonatan(FIN) [id number] Date(s): 05/15/18 - 05/16/[address] [facility] [address] [facility] [address] [facility] [address] [place] [address]- Vital Signs No data available for this section Problem List Condition Effective Dates Status Health Status Informant Diastolic CHF, Active acute(Confirmed) Arthritis(Confirmed) Resolved Atrial Active fibrillation(Confirm ed) Atrial Resolved fibrillation(Confirm ed) Benign essential 02/18/13 Active hypertension1 BP+ - Resolved Hypertension(Confirm ed) Cardiomegaly(Confirm Active ed) Chest pain2 02/18/13 Active Cholelithiasis(Confi Active rmed) Diastolic CHF, Active chronic(Confirmed) Fatigue3 02/18/13 Active Muscle spasm - Resolved tone(Confirmed) Obesity(Confirmed) Active Paroxysmal atrial Active fibrillation(Confirm ed) Pleurisy4 02/18/13 Active Preoperative 01/19/15 Active cardiovascular examination5, 6 Pulmonary Resolved embolism(Confirmed) Right bundle branch Resolved block(Confirmed) Right bundle branch 02/18/13 Active block7 SOB [...] Adverse Reactions, Alerts Substance Reaction Severity Status clindamycin Active Medications No data available for this section Results No data available for this section Immunizations No data available for this section Procedures Procedure Date Related Diagnosis Body Site Status Arthroplasty of hip, total, with use of Completed methyl methacrylate Arthroplasty of knee Completed Bladder operation Completed Cardiac catheterization1 Completed Cataract surgery Completed 90920 normal Social History Social History Type Response Substance Abuse Use: None. Exercise 1 Employment/School Status: Retired. Alcohol Never Smoking Status Never smoker; Exposure to Tobacco Smoke None; Cigarette Smoking Last 365 Days No; Reg Smoking Cessation Counseling No entered on: 07/31/18 1none Assessment and Plan No data available for this section
--- OUTSIDE RECORDS SUMMARY | 2018-12-29 05:14 | XMS REPORT | Continuity of Care Document ---
Author Author [facility] Organization [facility] Address Unknown Phone Unavailable Care Team Providers Care Industrial Retrofit Designer Name Role Phone MD Ronni, Torsten ARNDT Unavailable Insurance Providers Payer name Policy type / Coverage type Policy ID Covered alliance party ID Policy [place] [facility] [place]: [place] [employer] [place] [employer] [place] [employer] Encounters Encounter Performer Location Date Office Visit Torsten Rudolph MD [facility] Cardiology [place] Jan 19, 2015 Problems Problem Effective Dates Problem Status FATIGUE Feb 18, 2013 Active DYSPNEA Feb 18, 2013 Active HYPERTENSION, BENIGN ESSENTIAL Feb 18, 2013 Active RIGHT BUNDLE BRANCH BLOCK Feb 18, 2013 Active CHEST PAIN Feb 18, 2013 Active PRE-OPERATIVE CARDIOVASCULAR EXAMINATION Jan 19, 2015 Active Procedures Date Description Comments Feb 18, 2013 smoking status never smoker Mar 29, 2013 smoking status never smoker May 04, 2013 smoking status never smoker Jan 19, 2015 smoking status Never smoker Medications Medication Instructions Start Date Status CALCIUM 600 MG TABS 1 tab po Twice a day Feb 12, 2011 Active NEXIUM 40 MG CPDR 1 capsule po Once a day Jun 26, 2011 Active CYCLOBENZAPRINE HCL 10 MG TABS 1 tab po Three times a day Jun 23, 2012 Active SYMBICORT 80-4.5 MCG/ACT AERO Twice a day Feb 19, 2012 Inactive VENTOLIN HFA 108 (90 BASE) MCG/ACT AERS 2 puffs prn Apr 16, 2011 Inactive CETIRIZINE HCL 10 MG TABS 1 tab po Once a day Jul 01, 2012 Inactive SYMBICORT 160-4.5 MCG/ACT AERO 2 puffs bid Feb 08, 2013 Active ATORVASTATIN CALCIUM 10 MG TABS 1 tab po Once a day Apr 13, 2013 Inactive LOSARTAN POTASSIUM 100 MG TABS 1 tab po Once a day December 14, 2014 Active CETIRIZINE HCL 10 MG TABS 1 tab po Once a day December 14, 2014 Active MELOXICAM 15 MG TABS 1 tab po Once a day December 14, 2014 Active PEPCID 20 MG TABS 1 tab po Twice a day December 14, 2014 Active ALENDRONATE SODIUM 70 MG TABS 1 tab po Once a week December 14, 2014 Active TYLENOL EXTRA STRENGTH 500 MG TABS 1 tab po Twice a day December 14, 2014 Active ALBUTEROL SULFATE NEBU 2 puffs Every 4 hrs December 14, 2014 Active OLOPATADINE HCL 0.6 % SOLN December 14, 2014 Active FLUTICASONE PROPIONATE SUSP December 14, 2014 Active PONARIS SOLN Once a day December 14, 2014 Active REFRESH OPTIVE SOLN December 14, 2014 Active VITAMIN C 500 MG TABS 1 tab po Once a day December 14, 2014 Active VITAMIN E 400 UNIT TABS 1 tab po Once a day December 14, 2014 Active OSTEO BI-FLEX ADV TRIPLE ST TABS 1 tab po Twice a day December 14, 2014 Active VITAMIN B6 200 MG TABS 1 tab po Twice a day December 14, 2014 Active B-12 2500 MCG TABS 1 tab po Once a day December 14, 2014 Active VITAMIN D3 80471 UNIT CAPS 2 capsule po Once a day December 14, 2014 Active FISH OIL 1000 MG CAPS 2 capsules po Once a day December 14, 2014 Active EFRAÍN ALLERGY 180 MG TABS 1 tab po Once a day December 14, 2014 Active METOPROLOL SUCCINATE ER 100 MG [id number] 1 tab po Once a day Jul 03, 2011 Inactive BENZONATATE 100 MG CAPS 2 caps po TID Jan 13, 2013 Inactive NYSTATIN 095923 UNIT/ML SUSP for 10 days Feb 15, 2013 Inactive TERCONAZOLE 0.4 % CREA For 7 days Feb 15, 2013 Inactive PROAIR HFA 108 (90 BASE) MCG/ACT AERS prn Feb 08, 2013 Inactive LEVOCETIRIZINE DIHYDROCHLORIDE 5 MG TABS 1 po bid Feb 08, 2013 Inactive IBUPROFEN 400 MG TABS prn Feb 08, 2013 Inactive ASPIRIN 81 MG TABS 1 tab po Once a day Mar 24, 2013 Inactive HYDROCODONE-ACETAMINOPHEN 7.5-325 MG TABS As needed for pain Feb 23, 2013 Inactive DICLOFENAC SODIUM 0.1 % SOLN Once a day Mar 23, 2013 Inactive ALENDRONATE SODIUM 70 MG TABS 1 tab po Once a week Mar 24, 2013 Inactive PATANASE 0.6 % SOLN Twice a day Mar 23, 2013 Inactive ZETONNA 37 MCG/ACT AERS Once a day Mar 16, 2013 Inactive POLYETHYLENE GLYCOL 17 GM Once a day Mar 23, 2013 Inactive SODIUM CHLORIDE 0.65 % SOLN Once a day Mar 23, 2013 Inactive FLUCONAZOLE 200 MG TABS 2 tabs po twice a week Mar 17, 2013 Active Vital Signs Date Description Test [...] - 8462-4 BP DIASTOLIC 70 mm Hg Jan 19, 2015 weight E&M - 3141-9 WEIGHT 176 lb Jan 19, 2015 blood pressure, systolic, sitting, right arm BP SYS SIT R 130 null Jan 19, 2015 blood pressure, diastolic, sitting, right arm BP RODRIGO SIT R 70 mmHg Jan 19, 2015 pulse rate, sitting, right PULSE SIT R 86 /min Jan 19, 2015 blood pressure, systolic - 8480-6 BP SYSTOLIC 130 mm Hg Jan 19, 2015 pulse rate E&M - 8867-4 PULSE RATE 86 /min Jan 19, 2015 blood pressure, diastolic - 8462-4 BP DIASTOLIC [...]
--- OUTSIDE RECORDS SUMMARY | 2018-12-29 05:14 | XMS REPORT | Summary of Care ---
Author Author [facility] Outpatient Imaging [facility] Address Unknown Phone Unavailable Encounter RODERICK Israel(ADONIS) [id number] Date(s): 06/14/17 - 06/14/17 [facility] Outpatient Imaging [facility] [address] [place] [address]- Discharge Disposition: Home or Self Care Attending [...] knee Bladder operation Cardiac catheterization1 Cataract surgery 66108 normal Social History Social History Type Response Smoking Status Never smoker; Exposure to Tobacco Smoke None; Cigarette Smoking Last 365 Days No; Reg Smoking Cessation Counseling No Assessment and Plan No data available for this section
--- OUTSIDE RECORDS SUMMARY | 2018-12-29 05:15 | XMS REPORT | Summary of Care ---
Author Author [facility] Cardiology [place] Organization [facility] Cardiology [place] Address Unknown Phone Unavailable Encounter RODERICK Israel(FIN) [id number] Date(s): 08/07/17 - 08/07/17 [facility]iology [place] [address] [place] [address] Discharge Disposition: Home or Self Care Attending Physician: rPasanna Darling MD Referring Physician: Vasiliy Wiley MD Vital Signs Most recent to 1 oldest [Reference Range]: Height 165.1 cm (08/07/17 10:43 AM) Blood Pressure 135/93 mmHg [90-140/60-90 mmHg] (08/07/17 10:43 AM) Peripheral Pulse 119 bpm Rate [60-100 bpm] *HI* (08/07/17 10:43 AM) Weight 83.636 kg (08/07/17 10:43 AM) Body Mass Index 30.68 m2 (08/07/17 10:43 AM) Problem List Condition Effective Dates Status Health Status Informant Acid reflux Active status(Confirmed) Arthritis(Confirmed) Resolved Atrial Active fibrillation(Confirm ed) Benign essential 02/18/13 Active hypertension1 [...] Shortness of Active breath(Confirmed) 1Data migrated from [employer] on 01/09/15. 2Data migrated from [employer] on 01/09/15. 3Data migrated from [employer] on 01/09/15. 4Data migrated from [employer] on 01/09/15. 5Data migrated from [employer] on 02/15/15. 6Data migrated from [employer] on 02/15/15. 7Data migrated from [employer] on 01/09/15. Allergies, Adverse Reactions, Alerts Substance Reaction Severity Status NKDA Active Medications AMIODarone 200 mg oral tablet 200 mg=1 tab, PO, BID, pt to take bid for 2 wks, then once daily, # 120 tab, 3 R efill(s), Pharmacy: [id number] Start Date: 08/07/17 Stop Date: 04/04/18 Status: Ordered Eliquis 5 mg oral tablet 5 mg=1 tab, PO, BID, # 180 tab, 3 Refill(s), Pharmacy: [id number] Start Date: 08/07/17 Stop Date: 08/02/18 Status: Ordered losartan 50 mg oral tablet 50 mg=1 tab, PO, BID, 0 Refill(s) Start Date: 08/07/17 Status: Ordered metoprolol 50 mg oral tablet, extended release 50 mg=1 tab, PO, Daily, # 90 tab, 1 Refill(s), Pharmacy: [facility] [id number] Start Date: 08/07/17 Status: Ordered Results No data available for this section Immunizations No data available for this section Procedures Procedure Date Related Diagnosis Body Site Arthroplasty of hip, total, with use of methyl methacrylate Arthroplasty of knee Bladder operation Cardiac catheterization1 Cataract surgery 48948 normal Social History Social History Type Response Smoking Status Never smoker; Exposure to Tobacco Smoke None; Cigarette Smoking Last 365 Days No; Reg Smoking Cessation Counseling No Assessment and Plan No data available for this section
--- OUTSIDE RECORDS SUMMARY | 2018-12-29 05:15 | XMS REPORT | Summary of Care ---
Author Author [facility] Cardiology [facility] Organization [facility] Address Unknown Phone Unavailable Encounter HQ Jhonatan(FIN) [id number] Date(s): 10/01/17 - 10/01/17 [facility] [address] [facility] [place] [phone] Discharge Disposition: Home or Self Care Attending Physician: VISIT, NURSE SUPERVISOR KNITTING ECHO Referring Physician: Vasiliy Wiley MD Vital Signs No data available for [...] Completed Cardiac catheterization1 Completed Cataract surgery Completed 65328 normal Social History Social History Type Response Substance Abuse Use: None. Exercise 1 Employment/School Status: Retired. Alcohol Never Smoking Status Never smoker; Exposure to Tobacco Smoke None; Cigarette Smoking Last 365 Days No; Reg Smoking Cessation Counseling No entered on: 12/23/17 1none Assessment and Plan No data available for this section
--- OUTSIDE RECORDS SUMMARY | 2018-12-29 05:15 | XMS REPORT | Summary of Care ---
Author Author [facility] Cardiology [facility] Organization [facility] Address Unknown Phone Unavailable Encounter RODERICK Israel(FIN) [id number] Date(s): 09/05/17 - 09/06/17 [facility] [address] [facility] [address] [facility] [address] [place] [phone] Vital Signs No data available for this [...] Completed Cardiac catheterization1 Completed Cataract surgery Completed 51212 normal Social History Social History Type Response Substance Abuse Use: None. Exercise 1 Employment/School Status: Retired. Alcohol Never Smoking Status Never smoker; Exposure to Tobacco Smoke None; Cigarette Smoking Last 365 Days No; Reg Smoking Cessation Counseling No entered on: 11/11/17 1none Assessment and Plan No data available for this section
--- OUTSIDE RECORDS SUMMARY | 2018-12-29 05:15 | XMS REPORT | Summary of Care ---
Author Author [facility] Imaging [facility] Address Unknown Phone Unavailable Care Team Providers Care Neon Sign Maker Name Role Phone Bradley Dooley PCP Encounter HQ Jhonatan([facility]) [id number] Date(s): 12/19/18 - 12/19/18 [facility] [address] [place] [address]- Discharge Disposition: Home or Self Care Attending Physician: Isabel Rose MD Referring Physician: Isabel Rose MD Vital Signs No [...] [employer] on 02/15/15. 7Data migrated from [employer] on 01/09/15. Allergies, Adverse Reactions, Alerts Substance [...] Completed Cardiac catheterization1 Completed Cataract surgery Completed 81905 normal Social History Social History Type Response Substance Abuse Use: None. Exercise 1 Employment/School Status: Retired. Alcohol Never Smoking Status Never smoker; Exposure to Tobacco Smoke None; Cigarette Smoking Last 365 Days No; Reg Smoking Cessation Counseling No entered on: 07/31/18 1none Assessment and Plan No data available for this section
--- OUTSIDE RECORDS SUMMARY | 2018-12-29 05:15 | XMS REPORT | Summary of Care ---
Author Author [facility] Cardiology [facility] Organization [facility] Address Unknown Phone Unavailable Encounter RODERICK Israel(ADONIS) [id number] Date(s): 12/23/17 - 12/23/17 [facility] [address] [facility] [address] [address] [phone] Discharge Disposition: Home or Self Care Attending Physician: Amber Andrews Referring Physician: Vasiliy Wiley MD Vital Signs Most recent to 1 oldest [Reference Range]: Height 170.18 cm (12/23/17 10:48 AM) Blood Pressure 137/72 mmHg [90-140/60-90 mmHg] (12/23/17 10:48 AM) Peripheral Pulse 82 bpm Rate [60-100 bpm] (12/23/17 10:48 AM) Weight 86.364 kg (12/23/17 10:48 AM) Body Mass Index 29.82 m2 (12/23/17 10:48 AM) Problem List Condition Effective Dates Status [...] Reaction Severity Status clindamycin Active Medications No Known Medications Results No data available for this section Immunizations No data available for this section Procedures Procedure Date Related Diagnosis Body Site Status Arthroplasty of hip, total, with use of Completed methyl methacrylate Arthroplasty of knee Completed Bladder operation Completed Cardiac catheterization1 Completed Cataract surgery Completed 67452 normal Social History Social History Type Response Substance Abuse Use: None. Exercise 1 Employment/School Status: Retired. Alcohol Never Smoking Status Never smoker; Exposure to Tobacco Smoke None; Cigarette Smoking Last 365 Days No; Reg Smoking Cessation Counseling No entered on: 12/23/17 1none Assessment and Plan No data available for this section
--- OUTSIDE RECORDS SUMMARY | 2018-12-29 05:15 | XMS REPORT | Summary of Care ---
Author Author [facility] Cardiology [facility] Organization [facility] Address Unknown Phone Unavailable Encounter RODERICK Israel(ADONIS) [id number] Date(s): 10/31/17 - 10/31/17 [facility] [address] [facility] [address] [place] [address] [phone] Discharge Disposition: Home or Self Care Attending Physician: VISIT, NURSE SOCIAL SERVICES NUCLEAR Referring Physician: Vasiliy Wiley MD Vital Signs Most recent to 1 oldest [Reference Range]: Height 167.64 cm (10/31/17 11:38 AM) Weight 85.455 kg (10/31/17 11:38 AM) Body Mass Index 30.41 m2 (10/31/17 11:38 AM) Problem List Condition Effective Dates Status [...] [employer]ity on 02/15/15. 7Data migrated from [employer] on 01/09/15. Allergies, Adverse Reactions, Alerts Substance Reaction Severity Status clindamycin Active Medications No Known Medications Results No data available for this section Immunizations No data available for this section Procedures Procedure Date Related Diagnosis Body Site Status Arthroplasty of hip, total, with use of Completed methyl methacrylate Arthroplasty of knee Completed Bladder operation Completed Cardiac catheterization1 Completed Cataract surgery Completed 73803 normal Social History Social History Type Response Substance Abuse Use: None. Exercise 1 Employment/School Status: Retired. Alcohol Never Smoking Status Never smoker; Exposure to Tobacco Smoke None; Cigarette Smoking Last 365 Days No; Reg Smoking Cessation Counseling No entered on: 12/23/17 1none Assessment and Plan No data available for this section
--- OUTSIDE RECORDS SUMMARY | 2018-12-29 05:15 | XMS REPORT | Summary of Care ---
Author Author [facility] Organization [facility] Address Unknown Phone Unavailable Encounter RODERICK Israel(ADONIS) [id number] Date(s): 09/17/17 - 09/17/17 [facility] [address] [place] [address]- Encounter Diagnosis Unspecified atrial fibrillation (Final) - 11/06/17 Hypertensive heart disease with heart failure (Final) - Acute diastolic (congestive) heart failure (Final) - Unspecified right bundle-branch block (Final) - Nonrheumatic mitral (valve) insufficiency (Final) - Gastro-esophageal reflux disease without esophagitis (Final) - Obesity, unspecified (Final) - Personal history of pulmonary embolism (Final) - return to factory clerk (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) use of anticoagulants (Final) - Other penitentiary (current) drug therapy (Final) - Body mass index (BMI) 33.0-33.9, adult (Final) - Discharge Disposition: Home or Self Care Attending Physician: Prasanna Darling MD Referring Physician: Prasanna Darling MD Vital Signs Most recent to 1 oldest [Reference Range]: Height 157.48 cm (09/17/17 9:06 AM) Weight 83.636 kg (09/17/17 9:06 AM) Body Mass Index 33.72 m2 (09/17/17 9:06 AM) Problem List Condition Effective Dates Status [...] Substance Reaction Severity Status clindamycin Active Medications ciprofloxacin 500 mg oral tablet 500 mg=1 tab, PO, Q12H, 0 Refill(s) Start Date: 09/17/17 Status: Ordered cyclobenzaprine 10 mg oral tablet 10 mg=1 tab, PO, TID, PRN for spasms, 0 Refill(s) Start Date: 09/17/17 Status: Ordered ondansetron 4 mg oral tablet 8 mg=2 tab, PO, Q6H, 0 Refill(s) Start Date: 09/17/17 Stop Date: 09/18/17 Status: Ordered Results ELECTROLYTES Most recent to 1 oldest [Reference Range]: POC Sodium [135-145 142 mEq/L mEq/L] (09/17/17 9:20 AM) POC Potassium 4.4 mEq/L [3.5-5.1 mEq/L] (09/17/17 9:20 AM) POC Chloride [95-109 105 mEq/L mEq/L] (09/17/17 9:20 AM) POC Carbon Dioxide 25 mEq/dL [24-32 mEq/dL] (09/17/17 9:20 AM) POC AGAP [10.0-20.0 18.0 mEq/L mEq/L] (09/17/17 9:20 AM) CHEM PANEL Most recent to 1 oldest [Reference Range]: eGFR 50 mL/min/1.73m2 1 *NA* (09/17/17 9:20 AM) POC Creatinine 1.1 mg/dL [0.5-1.4 mg/dL] (09/17/17 9:20 AM) POC BUN [7-22 mg/dL] 25 mg/dL *HI* (09/17/17 9:20 AM) POC Glucose [70-99 140 mg/dL mg/dL] *HI* (09/17/17 9:20 AM) POC Ion Ca 1.23 mMol/L [1.05-1.25 mMol/L] (09/17/17 9:20 AM) 1Result Comment: The eGFR is calculated using [...] from the National Kidney Disease Education Program ( NKDEP) which additionally recommends that when the eGFR is used in patients with extremes of body mass index for purposes of drug dosing, the eGFR should be mul tiplied by the estimated BMI. HEMATOLOGY Most recent to 1 oldest [Reference Range]: POC Hemoglobin 12.6 g/dL [12.0-16.0 g/dL] (09/17/17 9:20 AM) POC Hematocrit 37.0 % [36.0-48.0 %] (09/17/17 9:20 AM) Immunizations No data available for this section Procedures Procedure Date Related Diagnosis Body Site Status Arthroplasty of hip, total, with use of Completed methyl methacrylate Arthroplasty of knee Completed Bladder operation Completed Cardiac catheterization1 Completed Cataract surgery Completed 27964 normal Social History Social History Type Response Substance Abuse Use: None. Exercise 1 Employment/School Status: Retired. Alcohol Never Smoking Status Never smoker; Exposure to Tobacco Smoke None; Cigarette Smoking Last 365 Days No; Reg Smoking Cessation Counseling No entered on: 12/23/17 1none Assessment and Plan No data available for this section
--- OUTSIDE RECORDS SUMMARY | 2018-12-29 05:15 | XMS REPORT | Summary of Care ---
Author Author [facility] Cardiology [facility] Organization [facility] Address Unknown Phone Unavailable Encounter HQ Jhonatan(FIN) [id number] Date(s): 12/29/17 - 12/29/17 [facility] [address] [facility] [address] [place] [phone] Attending Physician: Prasanna Darling MD Referring Physician: Vasiliy Wiley MD [...] Completed Cardiac catheterization1 Completed Cataract surgery Completed 29795 normal Social History Social History Type Response Substance Abuse Use: None. Exercise 1 Employment/School Status: Retired. Alcohol Never Smoking Status Never smoker; Exposure to Tobacco Smoke None; Cigarette Smoking Last 365 Days No; Reg Smoking Cessation Counseling No entered on: 12/23/17 1none Assessment and Plan No data available for this section
--- OUTSIDE RECORDS SUMMARY | 2018-12-29 05:15 | XMS REPORT | Summary of Care ---
Author Author [facility] Cardiology [facility] Organization [facility] Address Unknown Phone Unavailable Encounter RODERICK Israel(ADONIS) [id number] Date(s): 09/12/17 - 09/12/17 [facility] [address] [facility] [address] [place] [address] [phone] Discharge Disposition: Home or Self Care Attending Physician: Prasanna Darling MD Referring Physician: Vasiliy Wiley MD Vital Signs Most recent to 1 oldest [Reference Range]: Height 165.1 cm (09/12/17 12:55 PM) Blood Pressure 118/74 mmHg [90-140/60-90 mmHg] (09/12/17 12:55 PM) Peripheral Pulse 84 bpm Rate [60-100 bpm] (09/12/17 12:55 PM) Weight 85.199 kg (09/12/17 12:55 PM) Body Mass Index 31.26 m2 (09/12/17 12:55 PM) Problem List Condition Effective Dates Status Health [...] clindamycin Active Medications No Known Medications Results ELECTROLYTES Most recent to 1 oldest [Reference Range]: Sodium Lvl [135-145 139 mEq/L mEq/L] (09/12/17 2:00 PM) Potassium Lvl 4.2 mEq/L [3.5-5.1 mEq/L] (09/12/17 2:00 PM) Chloride Lvl [95-109 106 mEq/L mEq/L] (09/12/17 2:00 PM) CO2 [24-32 mEq/L] 27 mEq/L (09/12/17 2:00 PM) AGAP [10.0-20.0 10.2 mEq/L mEq/L] (09/12/17 2:00 PM) CHEM PANEL Most recent to 1 oldest [Reference Range]: Creatinine Lvl 1.20 mg/dL [0.50-1.40 mg/dL] (09/12/17 2:00 PM) eGFR 45 mL/min/1.73m2 1 *NA* (09/12/17 2:00 PM) BUN [7-22 mg/dL] 34 mg/dL *HI* (09/12/17 2:00 PM) Glucose Lvl [70-99 117 mg/dL mg/dL] *HI* (09/12/17 2:00 PM) Calcium Lvl 9.2 mg/dL [8.5-10.5 mg/dL] (09/12/17 2:00 PM) 1Result Comment: The eGFR is calculated using [...] be mul tiplied by the estimated BMI. Immunizations No data available for this section Procedures Procedure Date Related Diagnosis Body Site Status Arthroplasty of hip, total, with use of Completed methyl methacrylate Arthroplasty of knee Completed Bladder operation Completed Cardiac catheterization1 Completed Cataract surgery Completed 62114 normal Social History Social History Type Response Substance Abuse Use: None. Exercise 1 Employment/School Status: Retired. Alcohol Never Smoking Status Never smoker; Exposure to Tobacco Smoke None; Cigarette Smoking Last 365 Days No; Reg Smoking Cessation Counseling No entered on: 11/11/17 1none Assessment and Plan No data available for this section
--- OUTSIDE RECORDS SUMMARY | 2018-12-29 05:15 | XMS REPORT | Summary of Care ---
Author Author [facility] Cardiology [facility] Organization [facility] Address Unknown Phone Unavailable Encounter RODERICK Israel(ADONIS) [id number] Date(s): 09/30/17 - 09/30/17 [facility] [address] [facility] [address] [place] [address] [phone] Discharge Disposition: Home or Self Care Attending Physician: Prasanna Darling MD Referring Physician: Vasiliy Wiley MD Vital Signs Most recent to 1 oldest [Reference Range]: Height 157.48 cm (09/30/17 9:16 AM) Blood Pressure 153/76 mmHg [90-140/60-90 mmHg] *HI* (09/30/17 9:16 AM) Peripheral Pulse 87 bpm Rate [60-100 bpm] (09/30/17 9:16 AM) Weight 84.545 kg (09/30/17 9:16 AM) Body Mass Index 34.09 m2 (09/30/17 9:16 AM) Problem List Condition Effective Dates Status [...] Completed Cardiac catheterization1 Completed Cataract surgery Completed 21029 normal Social History Social History Type Response Substance Abuse Use: None. Exercise 1 Employment/School Status: Retired. Alcohol Never Smoking Status Never smoker; Exposure to Tobacco Smoke None; Cigarette Smoking Last 365 Days No; Reg Smoking Cessation Counseling No entered on: 12/23/17 1none Assessment and Plan No data available for this section
--- OUTSIDE RECORDS SUMMARY | 2018-12-29 05:15 | XMS REPORT | Summary of Care ---
Author Author [facility] Organization [facility] Address Unknown Phone Unavailable Encounter RODERICK Israel(ADONIS) [id number] Date(s): 04/28/18 - 04/28/18 [place] [address] [facility] [place] [address]- Encounter Diagnosis Iron deficiency anemia, unspecified (Final) - 05/01/18 Benign neoplasm of ascending colon (Final) - Benign neoplasm of cecum (Final) - Diverticulosis of large intestine without perforation or abscess without bleedin g (Final) - Residual hemorrhoidal skin tags (Final) - Other hemorrhoids (Final) - Gastritis, unspecified, without bleeding (Final) - Disorder of thyroid, unspecified (Final) - Diaphragmatic hernia without obstruction or gangrene (Final) - Disease of stomach and duodenum, unspecified (Final) - Unspecified asthma, uncomplicated (Final) - Unspecified atrial fibrillation (Final) - Gastro-esophageal reflux disease without esophagitis (Final) - Rheumatoid arthritis, unspecified (Final) - Essential (primary) hypertension (Final) - Age-related osteoporosis without current pathological fracture (Final) - Discharge Disposition: Home or Self Care Attending Physician: Whitney Morse MD Referring Physician: Whitney Morse MD Vital Signs Most recent to 1 oldest [Reference Range]: Height 167.64 cm (04/28/18 7:50 AM) Weight 76.818 kg (04/28/18 7:50 AM) Body Mass Index 27.33 m2 (04/28/18 7:50 AM) Problem List Condition Effective Dates Status [...] 1 oldest [Reference Range]: POC Sodium [135-145 145 mEq/L mEq/L] (04/28/18 8:04 AM) POC Potassium 4.3 mEq/L [3.5-5.1 mEq/L] (04/28/18 8:04 AM) CHEM PANEL Most recent to 1 oldest [Reference Range]: POC Glucose [70-99 115 mg/dL mg/dL] *HI* (04/28/18 8:04 AM) HEMATOLOGY Most recent to 1 oldest [Reference Range]: POC Hemoglobin 11.2 g/dL [12.0-16.0 g/dL] *LOW* (04/28/18 8:04 AM) POC Hematocrit 33.0 % [36.0-48.0 %] *LOW* (04/28/18 8:04 AM) Immunizations No data available for this section Procedures Procedure Date Related Diagnosis Body Site Status Arthroplasty of hip, total, with use of Completed methyl methacrylate Arthroplasty of knee Completed Bladder operation Completed Cardiac catheterization1 Completed Cataract surgery Completed 39602 normal Social History Social History Type Response Substance Abuse Use: None. Exercise 1 Employment/School Status: Retired. Alcohol Never Smoking Status Never smoker; Exposure to Tobacco Smoke None; Cigarette Smoking Last 365 Days No; Reg Smoking Cessation Counseling No entered on: 07/31/18 1none Assessment and Plan No data available for this section
--- OUTSIDE RECORDS SUMMARY | 2018-12-29 05:15 | XMS REPORT | Summary of Care ---
Author Author [facility] [place] Organization [facility] [place] Address Unknown Phone Unavailable Care Team Providers Care Coupon Manifest Clerk Name Role Phone Bradley Dooley PCP Encounter HQ Tiffany_lex(FIN) [id number] Date(s): 06/01/18 - 06/01/18 [facility] [place] [address] [address]- [phone] Encounter Diagnosis Iron deficiency anemia, unspecified (Final) - 06/04/18 Dyskinesia of esophagus (Final) - Diverticulosis of small intestine without perforation or abscess without bleedin g (Final) - Discharge Disposition: Home or Self Care Attending Physician: Whitney Morse MD Referring Physician: Whitney Morse MD Vital Signs No data available for [...] of Active breath(Confirmed) 1Data migrated from [employer] on 01/09/15. 2Data migrated from [employer] on 01/09/15. 3Data migrated from [employer] [...] Completed Cardiac catheterization1 Completed Cataract surgery Completed 46431 normal Social History Social History Type Response Substance Abuse Use: None. Exercise 1 Employment/School Status: Retired. Alcohol Never Smoking Status Never smoker; Exposure to Tobacco Smoke None; Cigarette Smoking Last 365 Days No; Reg Smoking Cessation Counseling No entered on: 07/31/18 1none Assessment and Plan No data available for this section
--- OUTSIDE RECORDS SUMMARY | 2018-12-29 05:15 | XMS REPORT | Summary of Care ---
Author Author [facility] Cardiology [place] Organization [facility] Cardiology [place] Address Unknown Phone Unavailable Encounter RODERICK Israel(FIN) [id number] Date(s): 08/20/17 - 08/21/17 [facility] Cardiology [place] [address] [facility] [place] [address] Vital Signs No data available for this [...] Completed Cardiac catheterization1 Completed Cataract surgery Completed 89709 normal Social History Social History Type Response Substance Abuse Use: None. Exercise 1 Employment/School Status: Retired. Alcohol Never Smoking Status Never smoker; Exposure to Tobacco Smoke None; Cigarette Smoking Last 365 Days No; Reg Smoking Cessation Counseling No entered on: 11/11/17 1none Assessment and Plan No data available for this section
--- OUTSIDE RECORDS SUMMARY | 2018-12-29 05:16 | XMS REPORT | Summary of Care ---
Author Author [facility] Cardiology [facility] Organization [facility] Address Unknown Phone Unavailable Encounter HQ Jhonatan(FIN) [id number] Date(s): 09/04/18 - 09/05/18 [facility] [address] [facility] [address] [place] [address] [phone] Vital Signs No data [...] Completed Cardiac catheterization1 Completed Cataract surgery Completed 77998 normal Social History Social History Type Response Substance Abuse Use: None. Exercise 1 Employment/School Status: Retired. Alcohol Never Smoking Status Never smoker; Exposure to Tobacco Smoke None; Cigarette Smoking Last 365 Days No; Reg Smoking Cessation Counseling No entered on: 07/31/18 1none Assessment and Plan No data available for this section
--- OUTSIDE RECORDS SUMMARY | 2018-12-29 05:16 | XMS REPORT | Summary of Care ---
Author Author [facility] Cardiology [facility] Organization [facility] Address Unknown Phone Unavailable Encounter HQ Jhonatan(FIN) [id number] Date(s): 05/04/18 - 05/05/18 [facility] [address] [facility] [address] [place] [address]- Vital Signs No data available for this [...] Substance Reaction Severity Status clindamycin Active Medications metoprolol 50 mg oral tablet, extended release 50 mg=1 tab, PO, Daily, X 90 day, # 90 tab, 3 Refill(s), Pharmacy: [facility] [id number] Start Date: 05/05/18 Stop Date: 07/31/18 Status: Completed Results No data available for this section Immunizations No data available for this section Procedures Procedure Date Related Diagnosis Body Site Status Arthroplasty of hip, total, with use of Completed methyl methacrylate Arthroplasty of knee Completed Bladder operation Completed Cardiac catheterization1 Completed Cataract surgery Completed 72848 normal Social History Social History Type Response Substance Abuse Use: None. Exercise 1 Employment/School Status: Retired. Alcohol Never Smoking Status Never smoker; Exposure to Tobacco Smoke None; Cigarette Smoking Last 365 Days No; Reg Smoking Cessation Counseling No entered on: 07/31/18 1none Assessment and Plan No data available for this section
--- OUTSIDE RECORDS SUMMARY | 2018-12-29 05:16 | XMS REPORT | Summary of Care ---
Author Author [facility] Cardiology [facility] Organization [facility] Address Unknown Phone Unavailable Encounter RODERICK Israel(FIN) [id number] Date(s): 02/06/18 - 02/07/18 [facility] [address] [facility] [address] [place] [phone] Vital Signs No data [...] Completed Cardiac catheterization1 Completed Cataract surgery Completed 35625 normal Social History Social History Type Response Substance Abuse Use: None. Exercise 1 Employment/School Status: Retired. Alcohol Never Smoking Status Never smoker; Exposure to Tobacco Smoke None; Cigarette Smoking Last 365 Days No; Reg Smoking Cessation Counseling No entered on: 12/23/17 1none Assessment and Plan No data available for this section
--- OUTSIDE RECORDS SUMMARY | 2018-12-29 05:16 | XMS REPORT | Summary of Care ---
Author Author [facility] Cardiology [facility] Organization [facility] Address Unknown Phone Unavailable Encounter HQ Jhonatan(FIN) [id number] Date(s): 11/10/17 - 11/11/17 [facility] [address] [facility] [address] [place] [phone] Vital Signs No data [...] Completed Cardiac catheterization1 Completed Cataract surgery Completed 12018 normal Social History Social History Type Response Substance Abuse Use: None. Exercise 1 Employment/School Status: Retired. Alcohol Never Smoking Status Never smoker; Exposure to Tobacco Smoke None; Cigarette Smoking Last 365 Days No; Reg Smoking Cessation Counseling No entered on: 12/23/17 1none Assessment and Plan No data available for this section
--- OUTSIDE RECORDS SUMMARY | 2018-12-29 05:16 | XMS REPORT | Summary of Care ---
Author Author [facility] Organization [facility] Address Unknown Phone Unavailable Encounter RODERICK Israel(FIN) [id number] Date(s): 04/14/18 - 04/14/18 [place] [address] [facility] [place] [address]- Encounter Diagnosis Iron deficiency anemia, unspecified (Final) - 04/21/18 Procedure and treatment not carried out because of other contraindication (Final) - Discharge Disposition: Home or Self Care Attending Physician: Whitney Morse MD Referring Physician: Whitney Morse MD Vital Signs Most recent to 1 oldest [Reference Range]: Height 167.64 cm (04/14/18 8:36 AM) Weight 77.273 kg (04/14/18 8:36 AM) Body Mass Index 27.5 m2 (04/14/18 8:36 AM) Problem List Condition Effective Dates Status [...] 1 oldest [Reference Range]: POC Sodium [135-145 143 mEq/L mEq/L] (04/14/18 9:28 AM) POC Potassium 4.1 mEq/L [3.5-5.1 mEq/L] (04/14/18 9:28 AM) CHEM PANEL Most recent to 1 oldest [Reference Range]: POC Glucose [70-99 126 mg/dL mg/dL] *HI* (04/14/18 9:28 AM) HEMATOLOGY Most recent to 1 oldest [Reference Range]: POC Hemoglobin 11.6 g/dL [12.0-16.0 g/dL] *LOW* (04/14/18 9:28 AM) POC Hematocrit 34.0 % [36.0-48.0 %] *LOW* (04/14/18 9:28 AM) Immunizations No data available for this section Procedures Procedure Date Related Diagnosis Body Site Status Arthroplasty of hip, total, with use of Completed methyl methacrylate Arthroplasty of knee Completed Bladder operation Completed Cardiac catheterization1 Completed Cataract surgery Completed 87283 normal Social History Social History Type Response Substance Abuse Use: None. Exercise 1 Employment/School Status: Retired. Alcohol Never Smoking Status Never smoker; Exposure to Tobacco Smoke None; Cigarette Smoking Last 365 Days No; Reg Smoking Cessation Counseling No entered on: 07/31/18 1none Assessment and Plan No data available for this section
--- OUTSIDE RECORDS SUMMARY | 2018-12-29 05:16 | XMS REPORT | Summary of Care ---
Author Author [facility] Cardiology [facility] Organization [facility] Address Unknown Phone Unavailable Encounter RODERICK Israel(FIN) [id number] Date(s): 11/04/17 - 11/05/17 [facility] [address] [facility] [address] [place] [address] [phone] Vital Signs No data available for [...] Completed Cardiac catheterization1 Completed Cataract surgery Completed 39875 normal Social History Social History Type Response Substance Abuse Use: None. Exercise 1 Employment/School Status: Retired. Alcohol Never Smoking Status Never smoker; Exposure to Tobacco Smoke None; Cigarette Smoking Last 365 Days No; Reg Smoking Cessation Counseling No entered on: 12/23/17 1none Assessment and Plan No data available for this section
--- OUTSIDE RECORDS SUMMARY | 2018-12-29 05:16 | XMS REPORT | Summary of Care ---
Author Author [facility] Cardiology [facility] Organization [facility] Address Unknown Phone Unavailable Encounter HQ Jhonatan(FIN) [id number] Date(s): 10/31/17 - 10/31/17 [facility] [address] [facility] [address] [facility] [address] [place] [address] [phone] Discharge Disposition: Home or Self Care Attending [...] Completed Cardiac catheterization1 Completed Cataract surgery Completed 29092 normal Social History Social History Type Response Substance Abuse Use: None. Exercise 1 Employment/School Status: Retired. Alcohol Never Smoking Status Never smoker; Exposure to Tobacco Smoke None; Cigarette Smoking Last 365 Days No; Reg Smoking Cessation Counseling No entered on: 12/23/17 1none Assessment and Plan No data available for this section
--- OUTSIDE RECORDS SUMMARY | 2018-12-29 05:16 | XMS REPORT | Summary of Care ---
Author Author [facility] Outpatient Imaging [facility] Organization [facility] Outpatient Imaging [facility] Address Unknown Phone Unavailable Encounter RODERICK Israel(ADONIS) [id number] Date(s): 05/10/18 - 05/10/18 [facility] Outpatient [address] [phone] Encounter Diagnosis Radiculopathy, cervicothoracic region (Final) - 07/13/18 Spondylosis without myelopathy or radiculopathy, cervical region (Final) - Other specified deforming dorsopathies, cervical region (Final) - Spinal stenosis, cervical region (Final) - Other specified diseases of spinal cord (Final) - Discharge Disposition: Home or Self Care Attending Physician: Rebecca Paige MD Referring Physician: Rebecca Paige MD Vital Signs No data available for [...] Completed Cardiac catheterization1 Completed Cataract surgery Completed 35382 normal Social History Social History Type Response Substance Abuse Use: None. Exercise 1 Employment/School Status: Retired. Alcohol Never Smoking Status Never smoker; Exposure to Tobacco Smoke None; Cigarette Smoking Last 365 Days No; Reg Smoking Cessation Counseling No entered on: 07/31/18 1none Assessment and Plan No data available for this section
--- OUTSIDE RECORDS SUMMARY | 2018-12-29 05:16 | XMS REPORT | Summary of Care ---
Author Author [facility] Cardiology [facility] Organization [facility] Address Unknown Phone Unavailable Encounter RODERICK Israel(FIN) [id number] Date(s): 11/11/17 - 11/11/17 [facility] [address] [facility] [address] [facility] [address] [place] [address]- [phone] Discharge Disposition: Home or Self Care Attending Physician: Amber Andrews Referring Physician: Vasiliy Wiley MD Vital Signs Most recent to 1 oldest [Reference Range]: Blood Pressure 164/75 mmHg [90-140/60-90 mmHg] *HI* (11/11/17 10:55 AM) Peripheral Pulse 91 bpm Rate [60-100 bpm] (11/11/17 10:55 AM) Weight 85.17 kg (11/11/17 10:55 AM) Problem List Condition Effective Dates Status [...] Substance Reaction Severity Status clindamycin Active Medications Feosol PO, 0 Refill(s) Start Date: 11/11/17 Status: Ordered Peptic Relief 262 mg oral tablet, chewable 524 mg=2 tab, CHEW, QID, 0 Refill(s) Start Date: 11/11/17 Status: Ordered tizanidine 4 mg oral tablet 4 mg=1 tab, PO, Bedtime, PRN for muscle spasm, # 30 tab, 0 Refill(s) Start Date: 11/11/17 Status: Ordered Tylenol PO, 0 Refill(s) Start Date: 11/11/17 Status: Ordered Vitamin B6 Daily, 0 Refill(s) Start Date: 11/11/17 Status: Ordered Results No data available for this section Immunizations No data available for this section Procedures Procedure Date Related Diagnosis Body Site Status Arthroplasty of hip, total, with use of Completed methyl methacrylate Arthroplasty of knee Completed Bladder operation Completed Cardiac catheterization1 Completed Cataract surgery Completed 47525 normal Social History Social History Type Response Substance Abuse Use: None. Exercise 1 Employment/School Status: Retired. Alcohol Never Smoking Status Never smoker; Exposure to Tobacco Smoke None; Cigarette Smoking Last 365 Days No; Reg Smoking Cessation Counseling No entered on: 12/23/17 1none Assessment and Plan No data available for this section
--- OUTSIDE RECORDS SUMMARY | 2018-12-29 05:16 | XMS REPORT | Summary of Care ---
Author Author [facility] Cardiology [facility] Organization [facility] Address Unknown Phone Unavailable Encounter HQ Jhonatan(FIN) [id number] Date(s): 10/31/17 - 10/31/17 [facility] [address] [facility] [address] [place] [address] [phone] Discharge Disposition: Home or Self Care Attending [...] Completed Cardiac catheterization1 Completed Cataract surgery Completed 36698 normal Social History Social History Type Response Substance Abuse Use: None. Exercise 1 Employment/School Status: Retired. Alcohol Never Smoking Status Never smoker; Exposure to Tobacco Smoke None; Cigarette Smoking Last 365 Days No; Reg Smoking Cessation Counseling No entered on: 12/23/17 1none Assessment and Plan No data available for this section
--- OUTSIDE RECORDS SUMMARY | 2018-12-29 05:16 | XMS REPORT | Summary of Care ---
Author Author [facility] Cardiology [facility] Organization [facility] Address Unknown Phone Unavailable Care Team Providers Care Soil Conservationist Name Role Phone Bradley Dooley PCP Encounter HQ Maryr_lex(FIN) [id number] Date(s): 06/05/18 - 06/06/18 [facility] [address] [facility] [address] [place] [address]- Vital Signs No data available for this [...] Completed Cardiac catheterization1 Completed Cataract surgery Completed 16640 normal Social History Social History Type Response Substance Abuse Use: None. Exercise 1 Employment/School Status: Retired. Alcohol Never Smoking Status Never smoker; Exposure to Tobacco Smoke None; Cigarette Smoking Last 365 Days No; Reg Smoking Cessation Counseling No entered on: 07/31/18 1none Assessment and Plan No data available for this section
--- OUTSIDE RECORDS SUMMARY | 2018-12-29 05:16 | XMS REPORT | Summary of Care ---
Author Author [facility] Cardiology [facility] Organization [facility] Address Unknown Phone Unavailable Encounter HQ Jhonatan(FIN) [id number] Date(s): 11/23/18 - 11/24/18 [facility] [address] [place] [address]- Vital Signs No data available for this [...] Completed Cardiac catheterization1 Completed Cataract surgery Completed 01151 normal Social History Social History Type Response Substance Abuse Use: None. Exercise 1 Employment/School Status: Retired. Alcohol Never Smoking Status Never smoker; Exposure to Tobacco Smoke None; Cigarette Smoking Last 365 Days No; Reg Smoking Cessation Counseling No entered on: 07/31/18 1none Assessment and Plan No data available for this section
--- OUTSIDE RECORDS SUMMARY | 2018-12-29 05:16 | XMS REPORT | Summary of Care ---
Author Organization Unknown Address Unknown Phone Unavailable Encounter RODERICK Israel(ADONIS) [id number] Date(s): 12/14/14 - 12/14/[address] [address]- Discharge Disposition: Home Physician Attending: Whitney Morse MD Physician Admitting: Whitney Morse MD Physician_Referring: Whitney Morse MD Vital Signs Most recent to 1 oldest [Reference Range]: Height 167.64 cm (12/14/14 1:38 PM) Weight 76.364 kg (12/14/14 1:38 PM) Body Mass Index 27.17 m2 (12/14/14 1:38 PM) Problem List Condition Effective Dates Status Health Status Informant Acid reflux Active status(Confirmed) Arthritis(Confirmed) Resolved BP+ - Resolved Hypertension(Confirm ed) Muscle spasm - Resolved tone(Confirmed) SOB - Shortness of Active breath(Confirmed) Allergies, Adverse Reactions, Alerts Substance Reaction Severity Status NKDA Active Medications cyclobenzaprine 10 mg oral tablet 10 mg, PO, TID, PRN Muscle Spasm, # 30 tab, 0 Refill(s) Start Date: 12/14/14 Stop Date: 12/24/14 Status: Ordered fluconazole 200 mg oral tablet 200 mg=1 tab, PO, Daily, # 10 tab, 0 Refill(s) Start Date: 12/14/14 Stop Date: 12/24/14 Status: Ordered flumazenil 0.2 mg, 2 mL, Route: IVP, Drug form: INJ, PRN, Dosing Weight 76.364, kg, PRN Frederick zodiazepine Reversal, Initial dose, Start date: 12/14/14 13:52:00, Duration: 30 day, Stop date: 01/13/15 13:51:00 Notes: (Same as: Romazicon) Start Date: 12/14/14 Stop Date: 12/15/14 Status: Discontinued fluticasone nasal 27.5 mcg/inh spray 1 spray, NASAL, Daily, PRN for allergy symptoms, # 10 gm, 0 Refill(s) Start Date: 12/14/14 Status: Ordered losartan 100 mg oral tablet 100 mg=1 tab, PO, Daily, # 30 tab, 0 Refill(s) Start Date: 12/14/14 Status: Ordered montelukast 10 mg oral tablet 10 mg=1 tab, PO, Bedtime, # 30 tab, 0 Refill(s) Start Date: 12/14/14 Status: Ordered naloxone 0.04 mg, 0.1 mL, Route: IVP, Drug form: INJ, Q2MIN, Dosing Weight 76.364, kg, RI N Narcotic Reversal, Start date: 12/14/14 13:52:00, Duration: 8 doses or times, Stop date: Limited # of times Notes: Same as Narcan Start Date: 12/14/14 Stop Date: 12/15/14 Status: Discontinued NexIUM 40 mg oral delayed release capsule 40 mg=1 cap, PO, Daily, # 30 cap, 0 Refill(s) Start Date: 12/14/14 Status: Ordered olopatadine nasal 2 spray, NASAL, BID, 0 Refill(s) Start Date: 12/14/14 Status: Ordered ondansetron 4 mg, 2 mL, Route: IVP, Drug form: INJ, ONCE, Dosing Weight 76.364, kg, PRN Naus ea & Vomiting, Start date: 12/14/14 13:52:00 Notes: (Same as: Tasha) MEDICATION WASTE Product Size: 4 mgProduct Was maty: ___ mg Start Date: 12/14/14 Stop Date: 12/15/14 Status: Discontinued Symbicort 160/4.5 inhalation aerosol with adapter 2 puff, INHALATION, BID, # 6 gm, 0 Refill(s) Start Date: 12/14/14 Status: Ordered Tylenol 325 mg oral tablet 325 mg=1 tab, PO, Q4H, PRN Pain, # 60 tab, 0 Refill(s) Start Date: 12/14/14 Stop Date: 12/24/14 Status: Ordered Results ELECTROLYTES Most recent to 1 oldest [Reference Range]: POC Sodium [135-145 143 mEq/L mEq/L] (12/14/14 2:05 PM) POC Potassium 4.0 mEq/L [3.5-5.1 mEq/L] (12/14/14 2:05 PM) CHEM PANEL Most recent to 1 oldest [Reference Range]: POC Glucose [70-99 113 mg/dL mg/dL] *HI* (12/14/14 2:05 PM) HEMATOLOGY Most recent to 1 oldest [Reference Range]: POC Hemoglobin 10.5 g/dL [12.0-16.0 g/dL] *LOW* (12/14/14 2:05 PM) POC Hematocrit 31.0 % [36.0-48.0 %] *LOW* (12/14/14 2:05 PM) Immunizations No data available for this section Procedures Procedure Date Related Diagnosis Body Site Arthroplasty of hip, total, with use of methyl methacrylate Arthroplasty of knee Bladder operation Cataract surgery Social History No data available for this section Assessment and Plan No data available for this section
--- OUTSIDE RECORDS SUMMARY | 2018-12-29 05:16 | XMS REPORT | Summary of Care ---
Author Author [facility] Cardiology [facility] Organization [facility] Address Unknown Phone Unavailable Encounter HQ Jhonatan(FIN) [id number] Date(s): 02/10/18 - 02/10/18 [facility] [address] [facility] [address] [place] [phone] Attending Physician: Prasanna Darling MD Referring Physician: [...] Completed Cardiac catheterization1 Completed Cataract surgery Completed 58447 normal Social History Social History Type Response Substance Abuse Use: None. Exercise 1 Employment/School Status: Retired. Alcohol Never Smoking Status Never smoker; Exposure to Tobacco Smoke None; Cigarette Smoking Last 365 Days No; Reg Smoking Cessation Counseling No entered on: 12/23/17 1none Assessment and Plan No data available for this section
--- OUTSIDE RECORDS SUMMARY | 2018-12-29 05:16 | XMS REPORT | CCD ---
Author Author [facility] Organization [facility] Address Unknown Phone Unavailable Care Team Providers Care Machine Brush Maker Name Role Phone Stan Rudolph III RP Allergies, Adverse Reactions, Alerts Substance Reaction Status NKDA Active Problem List Condition Effective Dates Status Acid reflux status Active Arthritis Resolved BP+ - Hypertension Resolved Muscle spasm - tone Resolved SOB - Shortness of breath Active Vital Signs Most recent to oldest [Reference Range]: 1 Height 167.64 cm (03/29/2013 14:59:00) Systolic Blood Pressure [90-140 mmHg] 140 mmHg (04/01/2013 07:45:00) Diastolic Blood Pressure [60-90 mmHg] 63 mmHg (04/01/2013 07:45:00) Respiratory Rate [14-20 BRMIN] 18 BRMIN (04/01/2013 07:45:00) Weight 90 kg (03/29/2013 14:59:00) Results CHEMISTRY Most recent to oldest [Reference Range]: 1 Sodium Lvl [135-145 mEq/L] 145 mEq/L (03/29/2013 15:00:00) Potassium Lvl [3.5-5.1 mEq/L] 4.2 mEq/L (03/29/2013 15:00:00) Chloride Lvl [95-109 mEq/L] 101 mEq/L (03/29/2013 15:00:00) CO2 [24-32 mEq/L] 27 mEq/L (03/29/2013 15:00:00) AGAP [10.0-20.0 mEq/L] 21.2 mEq/L *HI* (03/29/2013 15:00:00) Creatinine Lvl [0.5-1.4 mg/dL] 0.7 mg/dL (03/29/2013 15:00:00) eGFR 88 mL/min/1.73m2 1 *NA* (03/29/2013 15:00:00) BUN [7-22 mg/dL] 21 mg/dL (03/29/2013:00:00) B/C Ratio [6-25] 30 *HI* (03/29/2013:00:00) Glucose Lvl [70-99 mg/dL] 104 mg/dL 2 *HI* (03/29/2013 15:00:00) Total Protein [6.4-8.4 g/dL] 7.4 g/dL (03/29/2013:00:00) Albumin Lvl [3.5-5.0 g/dL] 3.9 g/dL (03/29/2013:00:00) Globulin [2.0-4.0 g/dL] 3.5 g/dL (03/29/2013:00:00) A/G Ratio [0.7-1.6] 1.1 (03/29/2013:00:00) Calcium Lvl [8.5-10.5 mg/dL] 9.1 mg/dL (03/29/2013:00:00) ALT [0-65 unit/L] 17 unit/L (03/29/2013:00:00) AST [0-37 unit/L] 16 unit/L (03/29/2013:00:00) Alk Phos [39-136 unit/L] 83 unit/L (03/29/2013:00:00) Bili Total [0.2-1.3 mg/dL] 0.4 mg/dL (03/29/2013:00:00) CHD Risk [3.90-5.80] 4.72 (03/29/2013:00:00) Chol [<=199 mg/dL] 236 mg/dL *HI* (03/29/2013:00:00) Trig [<=149 mg/dL] 108 mg/dL (03/29/2013:00:00) HDL [>=61 mg/dL] 50 mg/dL *LOW* (03/29/2013:00:00) LDL [<=99 mg/dL] 164 mg/dL *HI* (03/29/2013:00:00) 1Result Comment: The eGFR is calculated using [...] be mul tiplied by the estimated BMI. 2Interpretive Data: Adult reference range values reflect the clinical guidelines of the [place] [employer]. HEMATOLOGY Most recent to oldest [Reference Range]: 1 WBC [3.7-10.4 K/CMM] 5.5 K/CMM (03/29/2013:00:00) RBC [4.20-5.40 M/CMM] 3.88 M/CMM *LOW* (03/29/2013:00:00) Hgb [12.0-16.0 g/dL] 11.9 g/dL *LOW* (03/29/2013:00:00) Hct [36.0-48.0 %] 35.0 % *LOW* (03/29/2013:00:00) MCV [81.0-99.0 fL] 90.1 fL (03/29/2013:00:00) MCH [27.0-31.0 pg] 30.5 pg (03/29/2013:00:00) MCHC [32.0-36.0 g/dL] 33.9 g/dL (03/29/2013:00:00) RDW [11.5-14.5 %] 13.0 % (03/29/2013:00:00) Platelet [133-450 K/CMM] 258 K/CMM (03/29/2013:00:00) MPV [7.4-10.4 fL] 7.9 fL (03/29/2013:00:00) Segs [45.0-75.0 %] 61.9 % (03/29/2013:00:00) Lymphocytes [20.0-40.0 %] 29.8 % (03/29/2013 15:00:00) Monocytes [2.0-12.0 %] 7.1 % (03/29/2013 15:00:00) Eosinophils [0.0-4.0 %] 0.9 % (03/29/2013 15:00:00) Basophils [0.0-1.0 %] 0.3 % (03/29/2013 15:00:00) Segs-Bands # [1.5-8.1 K/CMM] 3.4 K/CMM (03/29/2013 15:00:00) Lymphocytes # [1.0-5.5 K/CMM] 1.6 K/CMM (03/29/2013 15:00:00) Monocytes # [0.0-0.8 K/CMM] 0.4 K/CMM (03/29/2013 15:00:00) Eosinophils # [0.0-0.5 K/CMM] 0.0 K/CMM (03/29/2013 15:00:00) Basophils # [0.0-0.2 K/CMM] 0.0 K/CMM (03/29/2013 15:00:00) PT [12.0-14.7 seconds] 12.6 seconds (03/29/2013 15:00:00) INR [0.85-1.17] 0.92 3 (03/29/2013 15:00:00) PTT [22.9-35.8 seconds] 27.9 seconds 4 (03/29/2013 15:00:00) 3Interpretive Data: RECOMMENDED RANGES FOR PROTIME INR: 2.0-3.0 for most medical and surgical thromboembolic states. 2.5-3.5 for artificial heart valves and recurrent embolism. INR SHOULD BE USED ONLY FOR PATIENTS ON STABLE ANTICOAGULANT THERAPY. 4Interpretive Data: Heparin Therapeutic Range: 57 - 92 Seconds Procedures Procedures Date Related Diagnosis Arthroplasty of hip, total, with use of methyl methacrylate Arthroplasty of knee Bladder operation Cataract surgery
--- OUTSIDE RECORDS SUMMARY | 2018-12-29 05:16 | XMS REPORT | Summary of Care ---
Author Author [facility] Cardiology [facility] Organization [facility] Address Unknown Phone Unavailable Encounter HQ Jhonatan(FIN) [id number] Date(s): 04/03/18 - 04/04/18 [facility] [address] [place] [address] [phone] Vital Signs No data [...] Completed Cardiac catheterization1 Completed Cataract surgery Completed 83221 normal Social History Social History Type Response Substance Abuse Use: None. Exercise 1 Employment/School Status: Retired. Alcohol Never Smoking Status Never smoker; Exposure to Tobacco Smoke None; Cigarette Smoking Last 365 Days No; Reg Smoking Cessation Counseling No entered on: 07/31/18 1none Assessment and Plan No data available for this section
--- OUTSIDE RECORDS SUMMARY | 2018-12-29 05:17 | XMS REPORT ---
Author Author [facility] Address Unknown Phone Unavailable Care Team Providers Care Typesetter Perforator Operator Name Role Phone QAMAR TREADWELL Unavailable Unavailable HASEEB CARIAS Unavailable Unavailable NEWTON TOTH Unavailable Unavailable Payers Payer Name Policy Type Policy Number Effective Date Expiration Date Problems This patient has no known problems. Allergies, Adverse Reactions, Alerts Allergy Name Allergy Type Status Severity Reaction(s) Onset Date Inactive Date Treating Clinician Comments clindamycin DA Active SV 2018-07-10 00:00:00 fluconazole DA Active SV 2018-07-10 00:00:00 meloxicam DA Active SV 2018-07-10 00:00:00 rosuvastatin DA Active SV 2018-07-10 00:00:00 ATORBASTATIN DA Active SV 2018-07-10 00:00:00 VOLTRAN DA Active SV 2018-07-10 00:00:00 penicillin G DA Active U 2008-09-10 00:00:00 PENICILLIN DA Active U 2008-09-09 00:00:00 No Known Contrast Allergies DA Active U 2008-09-09 00:00:00 No Known Food Allergies DA Active U 2008-09-09 00:00:00 No Known Other Allergies DA Active U 2008-09-09 00:00:00 Medications This patient has no known medications. Results Test Description Test Time Test Comments Text Results Atomic Results Result Comments CHEST 2 VIEWS 2018-12-23 17:00:00 [facility] [address] [place], [place] [address] Patient Name: BELINDA HECTOR MR #: [id number] : 1940 Age/Sex: 78/F Req #: [id number] Adm Physician: Ordered by: QAMAR TREADWELL MD Report #: [id number] Location: OR Room/Bed: Procedure: [id number] DX/CHEST 2 VIEWS Exam Date: 12/23/18 Exam Time: 1630 REPORT STATUS: Signed Frontal and lateral views of the chest. HISTORY: PREOP, carpal tunnel surgery COMPARISON: CT of the chest June 16, 2018. DISCUSSION: Lungs: The lungs appear mildly hyperinflated. No evidence of a consolidative pneumonia or pulmonary alveolar edema. Pleura: No pleural effusion or pneumothorax. Heart and mediastinum: The cardiomediastinal silhouette appears unremarkable. Bones and soft tissues: Multilevel mild to moderate degenerative changes of the thoracic spine. IMPRESSION: 1. No acute radiographic abnormality. 2. Findings which could be seen in the setting of mild COPD. Signed by: Dr. Elliot Valentin DEleazarO., M.M.M. on 12/23/2018 5:04 PM Dictated By: ELLIOT VALENTIN DO 03 Transcribed By: PRITI on 12/23/181703 COPY TO: QAMAR TREADWELL MD CT CHEST WO 2018-06-17 07:48:00 [place] [address] Patient Name: BELINDA HECTOR MR #: [id number] : 1940 Age/Sex: 77/F Req #: [id number] Adm Physician: Ordered by: HASEEB CARIAS MD, MD Report #: [id number] Location: CT Room/Bed: Procedure: [id number] CT/CT CHEST WO Exam Date: Exam Time: REPORT STATUS: Signed EXAM: CT Chest without contrast DATE/TIME: 06/16/2018 12:00 AM INDICATION: Hemoptysis COMPARISON: CT Abdomen/Pelvis 11/18/[address] Chest 07/17/2017. TECHNIQUE: Chest was scanned utilizing a multidetector helical scanner from the lung apex through the level of the adrenal glands without administration of IV contrast. Coronal and sagittal reformations were obtained. Routine protocol was performed. RADIATION DOSE: Total DLP: 832.2 mGy*cm Estimated effective dose: (DLP x 0.014 x size factor) mSv COMPLICATIONS: None FINDINGS: LINES/ TUBES: None. LUNGS AND AIRWAYS: The central airways are patent. Patchy dependent bilateral lower lobe subsegmental atelectasis. Biapical pleural parenchymal opacity, left greater than right. There is a 3 mm likely calcified solid pulmonary nodule in the left upper lobe on series 107, image 62, unchanged from 07/17/2017. PLEURA: The pleural spaces are clear. HEART AND MEDIASTINUM: The thyroid gland is normal. No mediastinal, hilar or axillary lymphadenopathy. No pericardial effusion. There is no pericardial effusion. Atherosclerotic calcifications of the aortic arch and great vessel origins are noted. The main pulmonary artery measures 3.4 cm. Ectatic ascending thoracic aorta measuring 3.7 cm. UPPER ABDOMEN: Limited non-contrast views of the upper abdomen show no abnormality within the visualized kidneys or adrenal gla nds. There is mild hyperdense appearance of the liver measuring 81 HU. There is a 1.8 cm hypodense lesion in the posterior right hepatic lobe, with slightly increased calcifications compared to abdominal CT from 11/09/2014, likely a result of prior infection or trauma. Extensive atherosclerotic changes of the abdominal aorta. Subcentimeter splenic lesion is too small to characterize but unchanged in size compared to CT on 11/18/2014. BONES AND SOFT TISSUES: No acute bony findings. Multilevel degenerative changes of the visualized spine. IMPRESSION: No acute intrathoracic findings on CT. Enlarged main pulmonary artery measuring up to 3.4 cm, suggestive of pulmonary arterial hypertension. Mildly increased hepatic density which could reflect medication related changes or conditions such as iron deposition. Signed by: Dr. Raz Rogers MD on 06/17/2018 8:42 AM Dictated By: RAZ ROGERS MD 1 Transcribed By: PRITI on 06/17/18841 COPY TO: HASEEB CARIAS ARTERIAL DUPLEX UPPER/COMPLETE BILAT 2018-03-20 09:59:08 CLINICAL INDICATION: M79.641 Pain in right handFINDINGS:COMPARISON STUDY: NoneReal time duplex sonographic evaluation of the bilateral upper extremities is performed. Color flow imaging is utilized.There is no acute or recanalized thrombus noted with and any of the venous structures of the bilateral upper extremities. All vessels compress and augment normally. Blood flow is normal.IMPRESSION:Negative exam CT MAXIO FAC/PARANAS WO [place] [address] Patient Name: BELINDA HECTOR MR #: [id number] : 1940 Age/Sex: 76/F Req #: [id number] Adm Physician: Ordered by: ARETHA REBOLLAR, HASEEB REBOLLAR Report #: [id number] Location: CT Room/Bed: Procedure: [id number] CT/CT MAXIO FAC/PARANAS WO Exam Date: 07/29/17 Exam Time: 1919 REPORT STATUS: Signed History: Cough and sinus congestion for one month. Comparison studies: None Technique: Axial images were obtained through the paranasal sinuses. Coronal and sagittal images reconstructed from the axial data. Intravenous contrast: None Findings: Right anterior complex: Frontal sinus: Clear. Frontonasal recess: Clear. Anterior ethmoid air cells: Minimal mucosal thickening Ostiomeatal unit: Mild mucosal thickening narrows the osteomeatal unit Maxillary sinus: Mild circumferential mucosal thickening with bubbly secretions. Left anterior complex: Frontal sinus: Clear. Frontonasal recess: Mild mucosal thickening Anterior ethmoid air cells: Minimal mucosal thickening. Ostiomeatal unit: Mucosal thickening results in near complete obstruction of the osteomeatal unit. Maxillary sinus: Moderate circumferential mucosal thickening. Posterior complex: Sphenoid sinuses: Mild mucosal thickening in right sphenoid sinus. Sphenoethmoidal recesses: Not well visualized Posterior ethmoid air cells: Clear. Other: Nasal vestibule and cavity: Patent Nasal septum: At midline. Agger Nasi: Minimal mucosal thickening Turbinates: Partially pneumatized right middle turbinate. Aurelia cells: None Lamina papyracea: Intact. Cribriform plates: Symmetric, 3.8 mm on the right and 3.6 mm on the left below the level of the fovea ethmoidalis. Olfactory recesses: Clear Optic nerves: Not dehiscent Onodi cells: None Internal carotid arteries: from the sphenoid sinuses by thin osseous septum Sphenoid sinuses: Mild mucosal thickening in right sphenoid sinus. The lateral recesses are aerated on the left, opacified on right. Sphenoid septum: Deviated towards the right. Orbits: No abnormalities. Bones: No abnormalities. Temporal bones: Mild opacification of the posterior and inferior aspect of left mastoid air cells/mastoid tip. IMPRESSION: 1. Mild mucosal inflammatory changes in right maxillary, ethmoid air cells, left ethmoid and right sphenoid sinuses. 2. Moderate mucosal inflammatory changes in left maxillary sinus. Signed by: Dr. Ludy Cook M.D. on 07/30/2017 12:34 AM Dictated By: LUDY COOK MD Transcribed By: PRITI on 07/30/1733 COPY TO: HASEEB CARIAS CT CHEST W [place] [address] Patient Name: BELINDA HECTOR MR #: [id number] : 1940 Age/Sex: 76/F Req #: [id number] Adm Physician: Ordered by: NEWTON TOTH MD Report #: [id number] Location: CT Room/Bed: Procedure: [id number] CT/CT CHEST W Exam Date: 07/17/17 Exam Time: 1945 REPORT STATUS: Signed EXAMINATION: CT scan of the chest with contrast. TECHNIQUE: Spiral CT images of the chest were performed from the lung apices to the level of the adrenal glands after the intravenous administration of 100 cc of Isovue-370 Coronal and sagittal reformatted images were obtained. COMPARISON: 10/21/2013 CLINICAL HISTORY:Persistent cough DISCUSSION: LINES/TUBES: None. LUNGS AND AIRWAYS: Juxtapleural groundglass and retic ular opacity predominantly in the dependent portions of the lower lobes compatible with subsegmental atelectasis. The lungs otherwise show no evidence of consolidation, bronchiectasis, or gross fibrotic change. Trachea, mainstem bronchi, and central lobar and signal bronchi are patent. PLEURA: No pleural effusion area no pneumothorax. HEART AND MEDIASTINUM: Visualized portions of the thyroid gland are normal. The heart is enlarged without pericardial effusion. There is no ectasia or aneurysmal dilatation of the thoracic aorta. Atherosclerotic calcifications of the aortic arch and great vessel origins are noted. Pulmonary outflow tract is of normal caliber. Central pulmonary arteries are patent. LYMPH NODES: No axillary, mediastinal, or hilar lymphadenopathy. ABDOMEN: Visualized portions of the liver are unremarkable. Small splenic cyst, average internal attenuation less than 10 Hounsfield units. No focal renal abnormalities or adrenal nodules. BONES AND SOFT TISSUES: No acute osseous abnormality. Multilevel degenerative disc changes of the lower cervical and thoracic spine. IMPRESSION: No acute thoracic CT abnormalities. Bibasilar subsegmental atelectasis. Atherosclerotic vascular disease. Cardiomegaly without vascular decompensation. Signed by: Dr. Moreno Sanches M.D. on 07/17/2017 8:15 PM Dictated By: MORENO SANCHES MD 14 Transcribed By: PRITI on 07/17/172014 COPY TO: NEWTON TOTH MD
--- OUTSIDE RECORDS SUMMARY | 2018-12-29 05:17 | XMS REPORT | Summary of Care ---
Author Organization Unknown Address Unknown Phone Unavailable Encounter [facility] Jhonatan(ADONIS) [id number] Date(s): 01/20/15 - 01/20/[address] [address]- Discharge Disposition: Home Physician Attending: Danilo Awan MD Physician_Referring: Danilo Awan MD Vital Signs 1 2 3 Most recent to oldest [Reference Range]: 167.64 cm (01/19/15 10:35 AM) 167.64 cm (01/13/15 10:55 AM) Height 125/71 mmHg (01/20/15 10:30 AM) 128/69 mmHg (01/20/15 10:15 AM) 130/70 mmHg (01/20/15 10:00 AM) Blood Pressure [90-140/60-90 mmHg] 16 BRMIN (01/20/15 10:30 AM) 16 BRMIN (01/20/15 10:15 AM) 16 BRMIN (01/20/15 10:00 AM) Respiratory Rate [14-20 BRMIN] 78.182 kg (01/19/15 10:35 AM) 78.182 kg (01/13/15 10:55 AM) Weight 27.82 m2 (01/19/15 10:35 AM) 27.82 m2 (01/13/15 10:55 AM) Body Mass Index Problem List Condition Effective Dates Status Health Status Informant Acid reflux Active status(Confirmed) Arthritis(Confirmed) Resolved Benign essential 02/18/13 Active hypertension1 BP+ - Resolved Hypertension(Confirm ed) Chest pain2 02/18/13 Active Cholelithiasis(Confi Active rmed) Fatigue3 02/18/13 Active Muscle spasm - Resolved tone(Confirmed) Pleurisy4 02/18/13 Active Right bundle branch 02/18/13 Active block5 SOB - Shortness of Active breath(Confirmed) 1Data migrated from [employer] on 01/09/15. 2Data migrated from [employer] on 01/09/15. 3Data migrated from [employer] on 01/09/15. 4Data migrated from [employer] on 01/09/15. 5Data migrated from [employer] on 01/09/15. Allergies, Adverse Reactions, Alerts Substance Reaction Severity Status NKDA Active Medications acetaminophen-hydrocodone 325 mg-5 mg oral tablet 1 tab, Route: PO, Dosing Weight 78.182, kg, Q4H, PRN Pain Score 4-6, Start date: 01/20/15 8:42:00, Duration: 30 day, Stop date: 02/19/15 8:41:00 Start Date: 01/20/15 Stop Date: 01/20/15 Status: Discontinued ceFAZolin 2 gm, 100 mL, Route: IVPB, Drug form: INJ, ONCALL, Start date: 01/20/15 1:00:00, Duration: 18 hr, Stop date: 01/20/15 18:59:00 Notes: Same as: Ancef Start Date: 01/20/15 Stop Date: 01/20/15 Status: Completed diphenhydrAMINE 12.5 mg, 0.25 mL, Route: IVP, Drug form: INJ, Q6H, Dosing Weight 78.182, kg, PRN Itching, Start date: 01/20/15 7:54:00, Duration: 30 day, Stop date: 02/19/15 7: 53:00 Notes: (Same as: Benadryl) Start Date: 01/20/15 Stop Date: 01/20/15 Status: Discontinued flumazenil 0.2 mg, 2 mL, Route: IVP, Drug form: INJ, PRN, Dosing Weight 78.182, kg, PRN Frederick zodiazepine Reversal, Initial dose, Start date: 01/20/15 7:54:00, Duration: 30 d ay, Stop date: 02/19/15 7:53:00 Notes: (Same as: Romazicon) Start Date: 01/20/15 Stop Date: 01/20/15 Status: Discontinued hydrALAZINE 10 mg, 0.5 mL, Route: IVP, Drug form: INJ, Q20Min, Dosing Weight 78.182, kg, PRN Elevated BP, Start date: 01/20/15 7:54:00, Duration: 2 doses or times, Stop enrrique e: Limited # of times Notes: (Same as: Apresoline)Push over 5 minutes Start Date: 01/20/15 Stop Date: 01/20/15 Status: Discontinued hydromorphone 0.5 mg, 0.25 mL, Route: IVP, Drug form: INJ, Q5Min, Dosing Weight 78.182, kg, MO N Pain Score 7-10, Start date: 01/20/15 7:54:00, Duration: 4 doses or times, Sto p date: Limited # of times Notes: (Same as: Dilaudid) Start Date: 01/20/15 Stop Date: 01/20/15 Status: Discontinued labetalol 10 mg, 2 mL, Route: IVP, Drug form: INJ, Q5Min, Dosing Weight 78.182, kg, PRN El evated BP, Start date: 01/20/15 7:54:00, Duration: 5 doses or times, Stop date: Limited # of times Notes: (Same as: Normodyne, Trandate)Push over 2 minutes Give bolus over 2-3 mi nutes. Start Date: 01/20/15 Stop Date: 01/20/15 Status: Discontinued Lactated Ringers IV 1000 mL 1,000 mL, Rate: 50 ml/hr, Infuse over: 20 hr, Route: IV, Dosing Weight 78.182 kg , Total Volume: 1,000, Start date: 01/20/15 8:42:00, Duration: 30 day, Stop date : 02/19/15 8:41:00 Start Date: 01/20/15 Stop Date: 01/20/15 Status: Discontinued morphine Sulfate 2 mg, Route: IVP, Q3H, Dosing Weight 78.182, kg, PRN Pain Score 1-3, Start date: 01/20/15 8:42:00, Duration: 30 day, Stop date: 02/19/15 8:41:00 Start Date: 01/20/15 Stop Date: 01/20/15 Status: Discontinued morphine Sulfate 2 mg, 0.2 mL, Route: IVP, Drug form: INJ, Q5Min, Dosing Weight 78.182, kg, PRN P ain Score 4-6, Start date: 01/20/15 7:54:00, Duration: 5 doses or times, Stop da te: Limited # of times Notes: (Same as:MORPhine Sulfate) Start Date: 01/20/15 Stop Date: 01/20/15 Status: Discontinued naloxone 0.04 mg, 0.1 mL, Route: IVP, Drug form: INJ, Q2MIN, Dosing Weight 78.182, kg, MO N Narcotic Reversal, Start date: 01/20/15 7:54:00, Duration: 8 doses or times, S top date: Limited # of times Notes: Same as Narcan Start Date: 01/20/15 Stop Date: 01/20/15 Status: Discontinued ondansetron 4 mg, 2 mL, Route: IVP, Drug form: INJ, ONCE, Dosing Weight 78.182, kg, PRN Naus ea & Vomiting, Start date: 01/20/15 7:54:00 Notes: (Same as: Zofran) MEDICATION WASTE Product Size: 4 mgProduct Was maty: ___ mg Start Date: 01/20/15 Stop Date: 01/20/15 Status: Completed Results BLOOD BANK RESULTS Most recent to 1 oldest [Reference Range]: ABO/Rh O NEG *Unknown* (01/20/15 7:28 AM) Antibody Scrn Negative (01/20/15 7:28 AM) ELECTROLYTES Most recent to 1 oldest [Reference Range]: Sodium Lvl [135-145 142 mEq/L mEq/L] (01/13/15 11:42 AM) Potassium Lvl 3.8 mEq/L [3.5-5.1 mEq/L] (01/13/15 11:42 AM) CHEM PANEL Most recent to 1 oldest [Reference Range]: Glucose Lvl [70-99 113 mg/dL 1 mg/dL] *HI* (01/13/15 11:42 AM) 1Interpretive Data: Adult reference range values reflect the clinical guidelines of the [employer]. HEMATOLOGY Most recent to 1 oldest [Reference Range]: Hgb [12.0-16.0 g/dL] 9.1 g/dL *LOW* (01/13/15 11:42 AM) Hct [36.0-48.0 %] 28.6 % *LOW* (01/13/15 11:42 AM) Immunizations No data available for this section Procedures Procedure Date Related Diagnosis Body Site Arthroplasty of hip, total, with use of methyl methacrylate Arthroplasty of knee Bladder operation Cataract surgery Social History Social History Type Response Smoking Status Never smoker; Exposure to Tobacco Smoke None; Cigarette Smoking Last 365 Days No; Reg Smoking Cessation Counseling No Assessment and Plan No data available for this section
[2018-12-29 08:30] VITALS: BP 153/85
--- NOTE | 2018-12-29 14:33 | Operative Report ---
DATE OF PROCEDURE: 12/29/2018 SURGEON: Milan Avalos MD PREOPERATIVE DIAGNOSIS: Right hand carpal tunnel syndrome. POSTOPERATIVE DIAGNOSES: 1. Right hand carpal tunnel syndrome. 2. Flexor tenosynovitis right wrist. PROCEDURE: 1. Right hand open carpal tunnel release. 2. Flexor tenosynovectomy right wrist. ANESTHESIA: General. HISTORY: The patient is 78 years old with EMG-proven right hand carpal tunnel syndrome. Risks, benefits and alternatives of treatment were discussed with the patient. The patient is prepared to undergo the procedure as outlined. DESCRIPTION OF PROCEDURE: The patient was brought to the operating theater. After the induction of adequate general inhalation anesthesia, the patient was prepped and draped in the supine position. A time out was performed by the entire operating room team. A 2.5 cm incision was marked out in the intrathenar space. The right upper extremity was exsanguinated, and a tourniquet was inflated to a pressure of 250 mmHg. The incision was made through the skin and subcutaneous tissues and all venous tributaries were controlled with bipolar cautery. The incision was deepened through the palmar fascia until the transverse carpal ligament was identified. The ligament was sharply sectioned, taking care to protect and preserve the median nerve underlying it. After the complete width of the ligament had been transected, the distal volar forearm fascia was divided under direct view. Proliferative flexor tenosynovium was noticed to encompass the median nerve and this was radically excised. After performing this maneuver, the nerve was noted to lie adequately decompressed. The wound was copiously irrigated with bacteriostatic saline, closed with 5-0 nylon in an interrupted horizontal mattress fashion. A Marcaine field block was performed at the operative site. Tourniquet was deflated. All of the fingers pinked up nicely and a sterile bulking conforming bandage was applied to the hand and the wrist. A fiberglass splint was fashioned to maintain the wrist in a modest amount of extension. This was held in place with a loosely wrapped Waqar wrap. The patient tolerated the procedure well and was brought to the recovery room in satisfactory condition and discharged with a postoperative instruction sheet as well as a followup appointment. Milan Avalos MD ER/MODL /[id number]
== END | disposition home or self-care (01) ==
LOC: OR 05:00
PROVIDERS: ATTEND Plastic Surgery
DX: G56.01 Carpal tunnel syndrome, right upper limb (principal); M65.841 Other synovitis and tenosynovitis, right hand; J44.9 Chronic obstructive pulmonary disease, unspecified; I11.0 Hypertensive heart disease with heart failure; I50.9 Heart failure, unspecified; R00.1 Bradycardia, unspecified; I45.10 Unspecified right bundle-branch block; Z88.0 Allergy status to penicillin; Z01.810 Encounter for preprocedural cardiovascular examination; Z01.812 Encounter for preprocedural laboratory examination; Z01.818 Encounter for other preprocedural examination; Z79.02 Long term (current) use of antithrombotics/antiplatelets; Z86.711 Personal history of pulmonary embolism
CPT/HCPCS: 25115; 36415; 71046; 85025; 93005; J1100; J1885; J2001; J2175; J2405; J2704; J0690

== ENCOUNTER 2019-02-07 12:07 | Emergency (ER) | payer MEDICARE ==
[~2019-02-07] VITALS: Ht 167.6 cm; Wt 86.2 kg
[~2019-02-07 12:07] MED LIST changes: -BUPIVACAINE HCL 0.5% INJ 30 ML VIAL INJ ONE; -CEFAZOLIN SOD 1 GM/NS 50ML 0 ML IV ONE; -CLINDAMYCIN 600MG / 50ML 0 ML IV ONE; -DEXAMETHASONE SOD PHOS INJ 4 MG/ML VIAL ONE; -KETOROLAC TROMETHAMINE 30 MG/ML VIAL ONE; -LIDOCAINE HCL 2% LOCAL INJ 5 ML SDV VIAL INJ ONE; -MEPERIDINE HCL INJ 25 MG/ML VIAL ONE; -ONDANSETRON HCL INJ 2MG/ML 2ML 2 MG/ML VIAL ONE; -PROPOFOL IV EMULSION 10 MG/ML 20 ML VIAL ONE; -SEVOFLURANE INHAL SOLN 250 ML PEN BTL ONE
--- OUTSIDE RECORDS SUMMARY | 2019-02-07 12:10 | XMS REPORT | Clinical Summary ---
Author Author [facility] Organization [facility] Address Unknown Phone Unavailable Care Team Providers Care Bellows Filler Name Role Phone Bradley Dooley MD PCP [...] MD 10/15/2018 Orders Only Cardiothoracic Surgery after 02/06/2018 Family History Medical History Relation Name Comments [...] Health Maintenance Due Date Last Done Comments COLONOSCOPY SCREENING 1992 SHINGLES VACCINES (#1) 1992 65+ PNEUMOCOCCAL VACCINE 2007 (1 of 2 - PCV13) INFLUENZA VACCINE 03/11/2019 Procedures Comments Procedure Name Priority Date/Time Associated Diagnosis AK AN ELECTIVE Routine 11/23/2018 ENDOTRACHEAL AIRWAY 11:01 [...] CHEST EXTERNAL STUDY Routine 06/16/2018 7:[address] CHEST WO CONTRAST Routine 06/16/2018 after 02/06/2018 Results * Partial thromboplastin time, activated (11/23/2018 9:25 AM CDT) Only the most recent of 2 results within the time period is included. PTT 26.5 23.0 - 36.0 sec [facility] Comment: [facility] PTT therapeutic range for HOSPITAL unfractionated heparin is 61.0-112.0 seconds which corresponds to Anti-Xa 0.3-0.7 U/ml. Specimen Blood Performing Organization Address City/State/Zipcode Phone Number [facility] DEPARTMENT OF [address] [place] [address] PATHOLOGY AND [facility] [address] * Prothrombin time with INR (11/23/2018 9:25 AM CDT) Only the most recent of 2 results within the time period is included. [facility] Prothrombin 13.1 11.5 - 14.5 sec [facility] INR 1.0 [place] Comment: [facility] International Normalized HOSPITAL Ratio (INR) is a therapeutic monitoring tool for patients who are stable on oral anticoagulant therapy. An INR of 2.0-3.0 is suggested for deep vein thrombosis/pulmonary embolism. Specimen Blood Performing Organization Address City/[facility] [place] [address] PATHOLOGY [address] * CBC with platelet and differential (11/05/2018 4:42 PM CDT) [facility] WBC 4.6 3.8 - 10.8 [facility] Thousand/uL [facility] [place] RBC 3.61 (L) 3.80 - 5.10 [facility] Million/uL [facility] [place] HGB 11.0 (L) 11.7 - 15.5 g/dL [facility] HCT 33.5 (L) 35.0 - 45.0 % [facility][1] MCV 92.8 80.0 - 100.0 fL [facility][1] MCH 30.5 27.0 - 33.0 pg [facility] [place] MCHC 32.8 32.0 - 36.0 g/dL [facility] [place] RDW 11.8 11.0 - 15.0 % [facility][1] Platelet count 294 140 - 400 [facility] Thousand/uL [facility] [place] MPV 10.4 7.5 - 12.5 fL [facility] [place] Neutrophils, 2,898 1,500 - 7,800 [facility] absolute cells/uL [facility] [place] Lymphocytes, 1,164 850 - 3,900 cells/uL [facility] absolute [facility] [place] Monocytes, 474 200 - 950 cells/uL [facility] absolute [facility] [place] Eosinophils, 32 15 - 500 cells/uL [facility] absolute [facility] [place] Basophils, 32 0 - 200 cells/uL [facility] absolute [facility] [place] Neutrophils 63 % [facility] [place] Lymphocytes 25.3 % [facility] [place] Monocytes 10.3 % [facility] [place] Eosinophils 0.7 % [facility] [place] Basophils + RC 0.7 % [facility] [place] Specimen Narrative Performed At FASTING:NO [facility] FASTING: NO Resulting Agency Comment Performing Organization Information: Site ID: [id number] Name[facility] Address: [address] [place] [address] Director: Ryann Clinton Performing Organization Address City/State/Zipcode Phone Number [facility] CAMACH[facility] [place] [address] [place] [address] * Comprehensive metabolic panel (11/05/2018 4:42 PM CDT) Glucose 115 65 - 139 mg/dL [facility] Comment: DI[facility]NOST[facility] Non-fasting [place] reference interval BUN, whole 26 (H) 7 - 25 mg/dL [facility] blood [facility] [place] Creatinine 0.94 (H) 0.60 - 0.93 mg/dL [facility] Comment: DIAG[facility]STICS For patients >49 years of age, [place] the reference limit for Creatinine is approximately 13% higher for people identified as -Beninese. EGFR Non-Afr. 59 (L) > OR=60 [facility] [place] mL/min/1.73m2 [facility] [place] EGFR 68 > OR=60 [facility] [place] mL/min/1.73m2 [facility] [place] BUN/creatinine 28 (H) 6 - 22 (calc) [facility] ratio [facility] [place] Sodium 140 135 - 146 mmol/L [facility] [place] Potassium 4.4 3.5 - 5.3 mmol/L [facility] [place] Chloride 102 98 - 110 mmol/L [facility] [place] CO2 32 20 - 32 mmol/L [facility] [place] Calcium 9.4 8.6 - 10.4 mg/dL [facility] [place] Protein 6.2 6.1 - 8.1 g/dL [facility] [place] Albumin, S 3.8 3.6 - 5.1 g/dL [facility] [place] Globulin, total 2.4 1.9 - 3.7 g/dL [facility] (calc) [facility] [place] Albumin/globuli 1.6 1.0 - 2.5 (calc) [facility] n ratio [facility] [place] Total bilirubin 0.3 0.2 - 1.2 mg/dL [facility] [place] Alkaline 86 33 - 130 U/L [facility] phosphatase [facility] [place] AST 18 10 - 35 U/L [facility] [place] ALT 12 6 - 29 U/L [facility] [place] Specimen Narrative Performed At FASTING:NO [facility] FASTING: NO Resulting Agency Comment Performing Organization Information: Site ID: [id number] Name: [facility] Address: [address] [place] [address] Director: Ryann Clinton Performing Organization Address City/State/Zipcode Phone Number [facility] [address] [place], [place] [phone] * CT Chest External Study (06/16/2018 7:15 PM PRACTICE CLINICIAN) Specimen Narrative Performed At This exam was not acquired at a [facility] facility and has not been [facility] interpreted by a [facility] Provider.The exam was imported into our imaging system for comparisons purposes. Performing Organization Address City/State/[facility] Mex[facility]ode Phone Number [facility] [address] [place] [address] * CT Chest Wo Contrast (06/16/2018) Narrative Performed At after 02/06/2018 Insurance Type Payer Benefit Subscriber ID Effective Phone Address Plan / Dates Group Medicare MEDICARE MEDICARE xxxxxxxxxxx 2002-P [place], PART A AND resent [place] B Medicaid MEDICAID MEDICAID xxxxxxxxx 2011-P resent Advance Directives Patient has advance care planning documents on file. For more information, prabhjot sharma contact: [facility] [address] [place] [address]
--- OUTSIDE RECORDS SUMMARY | 2019-02-07 12:12 | XMS REPORT | Continuity of Care Document ---
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 G44.52 - NEW DAILY PERSISTENT HEADACHE Active 04/25/2017 [facility] PRE-OPERATIVE CARDIOVASCULAR EXAMINATION Active 01/19/2015 Condition 01/19/2015 [facility] Preoperative cardiovascular examination5, 6 Active 01/19/2015 Problem 01/31/2019 Data migrated from [employer] on 02/15/15. Data migrated from [employer] on 02/15/15. [facility] CHOLELITHIASIS Active 01/11/2015 [facility] [address], [id number]---[id number], ABDOMINAL PAIN Active 12/07/2014 [facility] 786.50 Active 03/29/2013 [facility] FATIGUE Active 02/18/2013 Condition 01/19/2015 [facility] DYSPNEA Active 02/18/2013 Condition 01/19/2015 [facility] HYPERTENSION, BENIGN ESSENTIAL Active 02/18/2013 Condition 01/19/2015 [facility] RIGHT BUNDLE BRANCH BLOCK Active 02/18/2013 Condition 01/19/2015 [facility] CHEST PAIN Active 02/18/2013 Condition 01/19/2015 [facility] Benign essential hypertension1 Active 02/18/2013 Problem 01/31/2019 Data migrated from [employer] on 01/09/15. [facility], ERIK Garcia,[facility], ERIK De Los Santos,[facility] Chest pain2 Active 02/18/2013 Problem 01/31/2019 Data migrated from [employer] on 01/09/15. [facility], ERIK Garcia,[facility], ERIK De Los Santos,[facility] Fatigue3 Active 02/18/2013 Problem 01/31/2019 Data migrated from [employer] on 01/09/15. [facility], ERIK Garcia,[facility] Pleurisy4 Active 02/18/2013 Problem 01/31/2019 Data migrated from [employer] on 01/09/15. [facility], ERIK Garcia,[facility] Right bundle branch block7 Active 02/18/2013 Problem 01/31/2019 Data migrated from [employer] on 01/09/15. [facility], ERIK [place],[facility] Right bundle branch block5 Active 02/18/2013 Problem 01/23/2015 5Data migrated from [employer] on 01/09/15. [facility] Acid reflux status Active Problem 04/03/2013 [facility] Arthritis Resolved Problem 04/03/2013 [facility] BP+ - Hypertension Resolved Problem 04/03/2013 [facility] Muscle spasm - tone Resolved Problem 04/03/2013 [facility] SOB - Shortness of breath Active Problem 04/03/2013 [facility] Acid reflux status Active Problem 08/10/2017 [facility], ERIK De Los Santos,[facility] Arthritis Resolved Problem 01/31/2019 [facility], OPID [place],[facility], ERIK De Los Santos,[facility] Atrial fibrillation Active Problem 01/31/2019 [facility], OPID [place],[facility], OPID Fil[place]erto,[facility] BP+ - Hypertension Resolved Problem 01/31/2019 [facility], ERIK [place],[facility] Cardiomegaly Active Problem 01/31/2019 [facility] [place], OPID Ed Los Santos,[facility] Cholelithiasis Active Problem 01/31/2019 [facility], OPID [place],[facility], OPID De [place],[facility] Muscle spasm - tone Resolved Problem 01/31/2019 [facility], OPID [place],[facility], OPID De [place],[facility] Obesity Active Problem 01/31/2019 [facility], [facility] [place], OPID De [place],[facility] Pulmonary embolism Resolved Problem 01/31/2019 [facility], [facility]ID [place], OPID De [place],[facility] Right bundle branch block Resolved Problem 01/31/2019 [facility], OPID [place],[facility], OPID Fil[place]erto,[facility] SOB - Shortness of breath Active Problem 01/31/2019 [facility], OPID [place],[facility], OPID De [place],[facility] Diastolic CHF, acute Active Problem 01/31/2019 [facility], OPID [place],[facility], OPID De [place],[facility] Diastolic CHF, chronic Active Problem 01/31/2019 [facility], OPID [place],[facility], OPID De [place],[facility] Paroxysmal atrial fibrillation Active Problem 01/31/2019 [facility], OPID [place],[facility], OPID De [place],[facility] Benign neoplasm of ascending colon 11/15/2018 [facility] Benign neoplasm of cecum 11/15/2018 [facility] Diverticulosis of large intestine without perforation or abscess without bleeding 11/15/2018 [facility] Residual hemorrhoidal skin tags 11/15/2018 [facility] Other hemorrhoids 11/15/2018 [facility] Gastritis, unspecified, without bleeding 11/15/2018 [facility] Disorder of thyroid, unspecified 11/15/2018 [facility] Diaphragmatic hernia without obstruction or gangrene 11/15/2018 [facility] Disease of stomach and duodenum, unspecified 11/15/2018 [facility] Unspecified asthma, uncomplicated 11/15/2018 [facility] Unspecified atrial fibrillation 11/15/2018 [facility] Gastro-esophageal reflux disease without esophagitis 11/15/2018 [facility] Rheumatoid arthritis, unspecified 11/15/2018 [facility] Essential hypertension 11/15/2018 [facility] Age-related osteoporosis without current pathological fracture 11/15/2018 [facility] Dyskinesia of esophagus 12/19/2018 [facility] Diverticulosis of small intestine without perforation or abscess without bleeding 12/19/2018 [facility] Hypertensive heart disease with heart failure 12/24/2017 [facility] Acute diastolic heart failure 12/24/2017 [facility] Unspecified right bundle-branch block 12/24/2017 [facility] Nonrheumatic mitral insufficiency 12/24/2017 [facility] Obesity, unspecified 12/24/2017 [facility] Personal history of pulmonary embolism 12/24/2017 [facility] custodial use of anticoagulants 12/24/2017 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 Body mass index 33.0-33.9, adult 12/24/2017 [facility] Spondylosis without myelopathy or radiculopathy, cervical region 11/27/2018 [facility] Other specified deforming dorsopathies, cervical region 11/27/2018 [facility] Spinal stenosis, cervical region 11/27/2018 [facility] Other specified diseases of spinal cord 11/27/2018 [facility] Procedure and treatment not carried out because of other contraindication 11/01/2018 [facility] CHEST PAIN NOS Active [facility] UNSPECIFIED ATRIAL FIBRILLATION Active [facility] Medications Medication Details Route Status Patient Instructions Ordering Provider Order Date Source metoprolol 50 mg oral tablet, extended release 50 mg=1 tab, PO, Daily, X 90 day, # 90 tab, 3 Refill(s), Pharmacy: [facility] [id number] No Longer Active 05/05/2018 [facility] Feosol [...] tab, PO, Q6H, 0 Refill(s) Active 09/17/2017 [facility] cyclobenzaprine 10 mg oral tablet 10 mg=1 tab, PO, TID, PRN for spasms, 0 Refill(s) Active 09/17/2017 [facility] ciprofloxacin 500 mg oral tablet 500 mg=1 tab, PO, Q12H, 0 Refill(s) Active 09/17/2017 [facility] AMIODarone 200 mg oral tablet 200 mg=1 tab, PO, BID, pt to take bid for 2 wks, then once daily, # 120 tab, 3 Refill(s), Pharmacy: [facility] [id number] Active 08/07/2017 [facility] apixaban 5 MG Oral Tablet [Eliquis] 5 mg=1 tab, PO, BID, # 180 tab, 3 Refill(s), Pharmacy: [facility] [id number] Active 08/07/2017 [facility] metoprolol 50 mg oral tablet, extended release 50 mg=1 tab, PO, Daily, # 90 tab, 1 Refill(s), Pharmacy: [facility] [place] [id number] Active 08/07/2017 [facility] losartan 50 mg oral tablet 50 mg=1 tab, PO, BID, 0 Refill(s) Active 08/07/2017 [facility] Lactated Ringers IV 1000 mL 1,000 mL, Rate: 50 ml/hr, Infuse over: 20 hr, Route: IV, Dosing Weight 78.182 kg, Total Volume: 1,000, Start date: 01/20/15 8:42:00, Duration: 30 day, Stop date: 02/19/15 8:41:00 Inactive 01/20/2015 [facility] Morphine 2 mg, Route: IVP, Q3H, Dosing Weight 78.182, kg, PRN Pain Score 1-3, Start date: 01/20/15 8:42:00, Duration: 30 day, Stop date: 02/19/15 8:41:00 Inactive 01/20/2015 [facility] Acetaminophen 325 MG / Hydrocodone Bitartrate 5 MG Oral Tablet 1 tab, Route: PO, Dosing Weight 78.182, kg, Q4H, PRN Pain Score 4-6, Start date: 01/20/15 8:42:00, Duration: 30 day, Stop date: 02/19/15 8:41:00 Inactive 01/20/2015 [facility] Diphenhydramine 12.5 mg, 0.25 mL, Route: IVP, Drug form: INJ, Q6H, Dosing Weight 78.182, kg, PRN Itching, Start date: 01/20/15 7:54:00, Duration: 30 day, Stop date: 02/19/15 7:53:00Notes: (Same as: Benadryl) Inactive 01/20/2015 [facility] Ondansetron 4 mg, 2 mL, Route: IVP, Drug form: INJ, ONCE, Dosing Weight 78.182, kg, PRN Nausea & Vomiting, Start date: 01/20/15 7:54:00Notes: (Same as: Tasha) MEDICATION WASTE Product Size: 4 mg Product Wasted: ___ mg Inactive 01/20/2015 [facility] Morphine 2 mg, 0.2 mL, Route: IVP, Drug form: INJ, Q5Min, Dosing Weight 78.182, kg, PRN Pain Score 4-6, Start date: 01/20/15 7:54:00, Duration: 5 doses or times, Stop date: Limited # of timesNotes: (Same as:M ORPhine Sulfate) Inactive 01/20/2015 [facility] Hydromorphone 0.5 mg, 0.25 mL, Route: IVP, Drug form: INJ, Q5Min, Dosing Weight 78.182, kg, PRN Pain Score 7-10, Start date: 01/20/15 7:54:00, Duration: 4 doses or times, Stop date: Limited # of timesNotes: (Same as: Dilaudid) Inactive 01/20/2015 [facility] Flumazenil 0.2 mg, 2 mL, Route: IVP, Drug form: INJ, PRN, Dosing Weight 78.182, kg, PRN Benzodiazepine Reversal, Initial dose, Start date: 01/20/15 7:54:00, Duration: 30 day, Stop date: 02/19/15 7:53:00Notes: ( Same as: Romazicon) Inactive 01/20/2015 [facility] Naloxone 0.04 mg, 0.1 mL, Route: IVP, Drug form: INJ, Q2MIN, Dosing Weight 78.182, kg, PRN Narcotic Reversal, Start date: 01/20/15 7:54:00, Duration: 8 doses or times, Stop date: Limited # of timesNotes: Same as Narcan Inactive 01/20/2015 [facility] Hydralazine 10 mg, 0.5 mL, Route: IVP, Drug form: INJ, Q20Min, Dosing Weight 78.182, kg, PRN Elevated BP, Start date: 01/20/15 7:54:00, Duration: 2 doses or times, Stop date: Limited # of timesNotes: (Same as: A presoline) Push over 5 minutes Inactive 01/20/2015 [facility] Labetalol 10 mg, 2 mL, Route: IVP, Drug form: INJ, Q5Min, Dosing Weight 78.182, kg, PRN Elevated BP, Start date: 01/20/15 7:54:00, Duration: 5 doses or times, Stop date: Limited # of timesNotes: (Same as: Norm odyne, Trandate) Push over 2 minutes Give bolus over 2-3 minutes. Inactive 01/20/2015 [facility] ceFAZolin 2 gm, 100 mL, Route: IVPB, Drug form: INJ, ONCALL, Start date: 01/20/15 1:00:00, Duration: 18 hr, Stop date: 01/20/15 18:59:00Notes: Same as: Ancef Inactive 01/20/2015 [facility] cyclobenzaprine 10 mg oral tablet 10 mg, PO, TID, PRN Muscle Spasm, # 30 tab, 0 Refill(s) Active 12/14/2014 [facility] olopatadine 2 spray, NASAL, BID, 0 Refill(s) Active 12/14/2014 [facility] losartan 100 mg oral tablet 100 mg=1 tab, PO, Daily, # 30 tab, 0 Refill(s) Active 12/14/2014 [facility] fluconazole 200 mg oral tablet 200 mg=1 tab, PO, Daily, # 10 tab, 0 Refill(s) Active 12/14/2014 [facility] montelukast 10 mg oral tablet 10 mg=1 tab, PO, Bedtime, # 30 tab, 0 Refill(s) Active 12/14/2014 [facility] Symbicort 160/4.5 inhalation aerosol with adapter 2 puff, INHALATION, BID, # 6 gm, 0 Refill(s) Active 12/14/2014 [facility] Acetaminophen 325 MG Oral Tablet [Tylenol] 325 mg=1 tab, PO, Q4H, PRN Pain, # 60 tab, 0 Refill(s) Active 12/14/2014 [facility] 120 ACTUAT fluticasone furoate 0.0275 MG/ACTUAT Nasal Inhaler 1 spray, NASAL, Daily, PRN for allergy symptoms, # 10 gm, 0 Refill(s) Active 12/14/2014 [facility] Esomeprazole 40 MG Enteric Coated Capsule [Nexium] 40 mg=1 cap, PO, Daily, # 30 cap, 0 Refill(s) Active 12/14/2014 [facility] Ondansetron 4 mg, 2 mL, Route: IVP, Drug form: INJ, ONCE, Dosing Weight 76.364, kg, PRN Nausea & Vomiting, Start date: 12/14/14 13:52:00Notes: (Same as: Tasha) MEDICATION WASTE Product Size: 4 mg Product Wasted: ___ mg No Longer Active 12/14/2014 [facility] Naloxone 0.04 mg, 0.1 mL, Route: IVP, Drug form: INJ, Q2MIN, Dosing Weight 76.364, kg, PRN Narcotic Reversal, Start date: 12/14/14 13:52:00, Duration: 8 doses or times, Stop date: Limited # of timesNotes: Same as Narcan No Longer Active 12/14/2014 [facility] Flumazenil 0.2 mg, 2 mL, Route: IVP, Drug form: INJ, PRN, Dosing Weight 76.364, kg, PRN Benzodiazepine Reversal, Initial dose, Start date: 12/14/14 13:52:00, Duration: 30 day, Stop date: 01/13/15 13:51:00Notes: (Same as: Romazicon) No Longer Active 12/14/2014 [facility] LOSARTAN POTASSIUM 100 MG TABS 1 tab [...] day Active 12/14/2014 [facility] VITAMIN D3 [id number] UNIT CAPS 2 capsule po Once a [...] No Longer Active 02/23/2013 [facility] NYSTATIN [id number] UNIT/ML SUSP for 10 days Active 02/15/2013 [facility] TERCONAZOLE 0.4 % CREA For 7 days No Longer Active 02/15/2013 [facility] NYSTATIN [id number] UNIT/ML SUSP for 10 days No Longer [...] [facility] METOPROLOL SUCCINATE ER 100 MG [id number] 1 tab po Once a day Active 07/03/2011 [facility] METOPROLOL SUCCINATE ER 100 MG [id number] 1 tab po Once a day No [...] Assertion Drug allergy Active [facility] Immunizations No Data Provided for This Section Results Order Name Results Value Reference Range Date Interpretation Comments Source HEMATOLOGY POC Hematocrit 33.0 36.0 - 48.0 04/28/2018 [facility] HEMATOLOGY POC Sodium 145 135 - 145 04/28/2018 [facility] HEMATOLOGY POC Potassium 4.3 3.5 - 5.1 04/28/2018 [facility] HEMATOLOGY POC Glucose 115 70 - 99 04/28/2018 [facility] HEMATOLOGY POC Hemoglobin 11.2 12.0 - 16.0 04/28/2018 [facility] ELECTROLYTES POC Potassium 4.1 3.5 - 5.1 04/14/2018 [facility] ELECTROLYTES POC Glucose 126 70 - 99 04/14/2018 [facility] ELECTROLYTES POC Sodium 143 135 - 145 04/14/2018 [facility] ELECTROLYTES POC Hemoglobin 11.6 12.0 - 16.0 04/14/2018 [facility] ELECTROLYTES POC Hematocrit 34.0 36.0 - 48.0 04/14/2018 [facility] CHEM PANEL eGFR 50 09/17/2017 Result Comment: The eGFR is calculated [...] should be multiplied by the estimated BMI. [facility] CHEM PANEL POC Hematocrit 37.0 36.0 - 48.0 09/17/2017 [facility] CHEM PANEL POC Ion Ca 1.23 1.05 - 1.25 09/17/2017 [facility] CHEM PANEL POC Hemoglobin 12.6 12.0 - 16.0 09/17/2017 [facility] CHEM PANEL POC Glucose 140 70 - 99 09/17/2017 [facility] CHEM PANEL POC AGAP 18.0 10.0 - 20.0 09/17/2017 [facility] CHEM PANEL POC BUN 25 7 - 22 09/17/2017 [facility] CHEM PANEL POC Creatinine 1.1 0.5 - 1.4 09/17/2017 [facility] CHEM PANEL POC Carbon Dioxide 25 24 - 32 09/17/2017 [facility] CHEM PANEL POC Chloride 105 95 - 109 09/17/2017 [facility] CHEM PANEL POC Potassium 4.4 3.5 - 5.1 09/17/2017 [facility] CHEM PANEL POC Sodium 142 135 - 145 09/17/2017 [facility] ELECTROLYTES CO2 27 24 - 32 09/12/2017 [facility] ELECTROLYTES Sodium Lvl 139 135 - 145 09/12/2017 [facility] ELECTROLYTES Potassium Lvl 4.2 3.5 - 5.1 09/12/2017 [facility] ELECTROLYTES Chloride Lvl 106 95 - 109 09/12/2017 [facility] ELECTROLYTES Creatinine Lvl 1.20 0.50 - 1.40 09/12/2017 [facility] ELECTROLYTES BUN 34 7 - 22 09/12/2017 [facility] ELECTROLYTES Glucose Lvl 117 70 - 99 09/12/2017 [facility] ELECTROLYTES AGAP 10.2 10.0 - 20.0 09/12/2017 [facility] ELECTROLYTES Calcium Lvl 9.2 8.5 - 10.5 09/12/2017 [facility] ELECTROLYTES eGFR 45 09/12/2017 Result Comment: The eGFR is calculated [...] should be multiplied by the estimated BMI. [facility] BLOOD BANK RESULTS Antibody Scrn Negative (01/20/15 7:28 AM) 01/20/2015 [facility] BLOOD BANK RESULTS ABO/Rh O NEG 01/20/2015 [facility] CHEM PANEL Glucose Lvl 113 70 - 99 01/13/2015 <sup>1</sup>Interpretive Data: Adult reference range values reflect the clinical guidelines
of the [place] [employer]. [facility] ELECTROLYTES Potassium Lvl 3.8 3.5 - 5.1 01/13/2015 [facility] ELECTROLYTES Sodium Lvl 142 135 - 145 01/13/2015 [facility] HEMATOLOGY Hct 28.6 36.0 - 48.0 01/13/2015 [facility] HEMATOLOGY Hgb 9.1 12.0 - 16.0 01/13/2015 [facility] CHEM PANEL POC Glucose 113 70 - 99 12/14/2014 [facility] CHEM PANEL POC Potassium 4.0 3.5 - 5.1 12/14/2014 [facility] CHEM PANEL POC Sodium 143 135 - 145 12/14/2014 [facility] CHEM PANEL POC Hematocrit 31.0 36.0 - 48.0 12/14/2014 [facility] CHEM PANEL POC Hemoglobin 10.5 12.0 - 16.0 12/14/2014 [facility] CHEMISTRY LDL 164 <=99 03/29/2013 [facility] CHEMISTRY Trig 108 <=149 03/29/[address] [facility] CHEMISTRY HDL 50 >=61 03/29/[address] [facility] CHEMISTRY Chol 236 <=199 03/29/2013 [facility] CHEMISTRY CHD Risk 4.72 3.90 - 5.80 03/29/[address] [facility] CHEMISTRY AGAP 21.2 10.0 - 20.0 03/29/2013 [facility] CHEMISTRY B/C Ratio 30 6 - 25 03/29/2013 [facility] CHEMISTRY Globulin 3.5 2.0 - 4.0 03/29/[address] [facility] CHEMISTRY A/G Ratio 1.1 0.7 - 1.6 03/29/[address] [facility] CHEMISTRY eGFR 88 03/29/2013 NA <sup>1</sup>Result Comment: The eGFR is calculated using the CKD-EPI formula. In most young, healthy individuals the eGFR will be >90 mL/min/1.73m2. The eGFR declines with age. An eGFR of 60-89 may be normal in some populations, particularly the elderly, for whom the CKD-EPI formula has not been extensively validated. Use of the eGFR is not recommended in the following populations:& lt;br/>
Individuals with unstable creatinine concentrations, including patients [...] should be multiplied by the estimated BMI. [facility] CHEMISTRY Alk Phos 83 39 - 136 03/29/[address] [facility] CHEMISTRY Albumin Lvl 3.9 3.5 - 5.0 03/29/[address] [facility] CHEMISTRY BUN 21 7 - 22 03/29/[address] [facility] CHEMISTRY Glucose Lvl 104 70 - 99 03/29/2013 [facility] <sup>2</sup>Interpretive Data: Adult reference range values reflect the clinical guidelines
of the [employer] [place] [employer]. [facility] CHEMISTRY Creatinine Lvl 0.7 0.5 - 1.4 03/29/[address] [facility] CHEMISTRY Sodium Lvl 145 135 - 145 03/29/[address] [facility] CHEMISTRY Potassium Lvl 4.2 3.5 - 5.1 03/29/[address] [facility] CHEMISTRY ALT 17 0 - 65 03/29/[address] [facility] CHEMISTRY Calcium Lvl 9.1 8.5 - 10.5 03/29/[address] [facility] CHEMISTRY Bili Total 0.4 0.2 - 1.3 03/29/[address] [facility] CHEMISTRY Total Protein 7.4 6.4 - 8.4 03/29/[address] [facility] CHEMISTRY AST 16 0 - 37 03/29/[address] [facility] CHEMISTRY CO2 27 24 - 32 03/29/[address] [facility] CHEMISTRY Chloride Lvl 101 95 - 109 03/29/[address] [facility] HEMATOLOGY Hgb 11.9 12.0 - 16.0 03/29/[address] [facility] HEMATOLOGY Hct 35.0 36.0 - 48.0 03/29/[address] [facility] HEMATOLOGY Platelet 258 133 - 450 03/29/[address] [facility] HEMATOLOGY MPV 7.9 7.4 - 10.4 03/29/[address] [facility] HEMATOLOGY WBC 5.5 3.7 - 10.4 03/29/[address] [facility] HEMATOLOGY MCV 90.1 81.0 - 99.0 03/29/[address] [facility] HEMATOLOGY RDW 13.0 11.5 - 14.5 03/29/[address] [facility] HEMATOLOGY MCH 30.5 27.0 - 31.0 03/29/[address] [facility] HEMATOLOGY MCHC 33.9 32.0 - 36.0 03/29/[address] [facility] HEMATOLOGY RBC 3.88 4.20 - 5.40 03/29/[address] [facility] HEMATOLOGY Monocytes # 0.4 0.0 - 0.8 03/29/[address] [facility] HEMATOLOGY Lymphocytes # 1.6 1.0 - 5.5 03/29/[address] [facility] HEMATOLOGY Segs-Bands # 3.4 1.5 - 8.1 03/29/[address] [facility] HEMATOLOGY Basophils 0.3 0.0 - 1.0 03/29/[address] [facility] HEMATOLOGY Eosinophils # 0.0 0.0 - 0.5 03/29/[address] [facility] HEMATOLOGY Basophils # 0.0 0.0 - 0.2 03/29/[address] [facility] HEMATOLOGY Segs 61.9 45.0 - 75.0 03/29/[address] [facility] HEMATOLOGY Monocytes 7.1 2.0 - 12.0 03/29/[address] [facility] HEMATOLOGY Lymphocytes 29.8 20.0 - 40.0 03/29/[address] [facility] HEMATOLOGY Eosinophils 0.9 0.0 - 4.0 03/29/[address] [facility] HEMATOLOGY INR 0.92 0.85 - 1.17 03/29/2013 Normal <sup>3</sup>Interpretive Data: RECOMMENDED RANGES FOR PROTIME INR:
2.0-3.0 for most medical and surgical thromboembolic states.
2.5-3.5 for artificial heart valves and recurrent embolism.

INR SHOULD BE USED ONLY FOR PATIENTS ON STABLE ANTICOAGULANT THERAPY. [facility] HEMATOLOGY PTT 27.9 22.9 - 35.8 03/29/2013 Normal <sup>4</sup>Interpretive Data: Heparin Therapeutic Range: 57 - [address] [facility] HEMATOLOGY PT 12.6 12.0 - 14.7 03/29/[address] [facility] Chemistry SODIUM 140 MEQ/L 135 - 145 02/18/2013 [facility] Chemistry POTASSIUM 4.6 MEQ/L 3.5 - 5.1 02/18/2013 [facility] Chemistry CREATININE 0.7 0.5 - 1.4 02/18/2013 [facility] Chemistry BUN 32 7 - 22 02/18/2013 [facility] Chemistry BUN/CREAT 46 6 - 25 02/18/2013 [facility] Chemistry ALBUMIN 4.1 3.5 - 5.0 02/18/2013 [facility] Chemistry CALCIUM 9.2 8.5 - 10.5 02/18/2013 [facility] Chemistry SGPT (ALT) 22 0 - 65 02/18/2013 [facility] Chemistry SGOT (AST) 20 0 - 37 02/18/2013 [facility] Chemistry ALK PHOS 72 39 - 136 02/18/2013 [facility] Chemistry TSH 1.410 0.360 - 3.740 02/18/2013 [facility] Chemistry SODIUM 140 MEQ/L 135 - 145 02/18/2013 [facility] Chemistry POTASSIUM 4.6 MEQ/L 3.5 - 5.1 02/18/2013 [facility] Chemistry CREATININE 0.7 0.5 - 1.4 02/18/2013 [facility] Chemistry BUN 32 7 - 22 02/18/2013 [facility] Chemistry BUN/CREAT 46 6 - 25 02/18/2013 [facility] Chemistry ALBUMIN 4.1 3.5 - 5.0 02/18/2013 [facility] Chemistry CALCIUM 9.2 8.5 - 10.5 02/18/2013 [facility] Chemistry SGPT (ALT) 22 0 - 65 02/18/2013 [facility] Chemistry SGOT (AST) 20 0 - 37 02/18/2013 [facility] Chemistry ALK PHOS 72 39 - 136 02/18/2013 [facility] Chemistry TSH 1.410 0.360 - 3.740 02/18/2013 [facility] Hematology HGB 12.2 12.0 - 16.0 02/18/2013 [facility] Hematology HCT 37.3 36.0 - 48.0 02/18/2013 [facility] Hematology PLATELETS 229 K/CMM 133 - 450 02/18/2013 [facility] Hematology HGB 12.2 12.0 - 16.0 02/18/2013 [facility] Hematology HCT 37.3 36.0 - 48.0 02/18/2013 [facility] Hematology PLATELETS 229 K/CMM 133 - 450 02/18/2013 [facility] Pathology Reports No Data Provided for This Section Diagnostic Reports Report Value Date Source Brain wo contrast MRI EXAM: MRI BRAIN [...] cerebral hemispheres may represent chronic microhemorrhages 12/19/2018 [facility] Upper GI air [...] without clearly identified source for anemia. 06/01/2018 ERI[facility] Garcia Spine cervical wo contrast MRI EXAM: Spine [...] the left at C3-4 and C5-6 05/10/2018 [facility] Spine cervical wo contrast MRI EXAM: MRI [...] greatest on the left at C5-C6 06/14/2017 [facility] Brain w/wo contrast MRI EXAM: MRI BRAIN [...] chronic microangiopathic changes. Left mastoid effusion. 05/04/2017 [facility] Cholangiogram Intraoperative DX Intraoperative cholangiogram HISTORY: Cholelithiasis [...] to operative note for further details. 01/20/2015 [facility] Chest 2 views Chest 2 views: COMPARISON: [...] previous study dated 05/05/2009 SL: 14 03/29/2013 [facility] Consultation Notes No Data Provided for This Section Discharge Summaries No Data Provided for This Section History and Physicals No Data Provided for This Section Vital Signs Vital Sign Value Date Comments Source BMI Calculated 27.33 04/28/2018 [facility] Weight 76.818 04/28/2018 [facility] Height 167.64 cm 04/28/2018 [facility] BMI Calculated 27.5 04/14/2018 [facility] Height 167.64 cm 04/14/2018 [facility] Weight 77.273 04/14/2018 [facility] Systolic (mm Hg) 137 12/23/2017 [facility] Diastolic (mm Hg) 72 12/23/2017 [facility] Heart Rate 82 12/23/2017 [facility] Height 170.18 cm 12/23/2017 [facility] BMI Calculated 29.82 12/23/2017 [facility] Weight [...] 09/30/2017 [facility] Height 157.48 cm 09/17/2017 [facility] BMI Calculated 33.72 09/17/2017 [facility] Weight 83.636 09/17/2017 [facility] BMI Calculated 31.26 09/12/2017 [facility] [...] Group Systolic (mm Hg) 135 08/07/2017 [facility] Diastolic (mm Hg) 93 08/07/2017 [facility] Systolic (mm Hg) 125 01/20/2015 [facility] Diastolic (mm Hg) 71 01/20/2015 [facility] Respitory Rate 16 01/20/2015 [facility] Systolic (mm Hg) 128 01/20/2015 [facility] Diastolic (mm Hg) 69 01/20/2015 [facility] Respitory Rate 16 01/20/2015 [facility] Systolic (mm Hg) 130 01/20/2015 [facility] Diastolic (mm Hg) 70 01/20/2015 [facility] Respitory Rate 16 01/20/2015 [facility] Weight 78.182 01/19/2015 [facility] Height 167.64 cm 01/19/2015 [facility] BMI Calculated 27.82 01/19/2015 [facility] Weight 176 01/19/2015 [facility] Systolic (mm Hg) 130 01/19/2015 [facility] Diastolic (mm Hg) 70 01/19/2015 Medical [facility] Heart Rate 86 01/19/2015 Medical [facility] Height 167.64 cm 01/13/2015 [facility] Weight 78.182 01/13/2015 [facility] BMI Calculated 27.82 01/13/2015 [facility] Weight 76.364 12/14/2014 [facility] BMI Calculated 27.17 12/14/2014 [facility] Height 167.64 cm 12/14/2014 [facility] Weight 202 05/04/2013 [facility] Systolic (mm Hg) 120 05/04/2013 [facility] Diastolic (mm Hg) 70 05/04/2013 [facility] Heart Rate 84 05/04/2013 [facility] Systolic (mm Hg) 140 04/01/2013 [facility] Diastolic (mm Hg) 63 04/01/2013 [facility] Respitory Rate 18 04/01/2013 [facility] Weight 90 03/29/2013 [facility] Height 167.64 cm 03/29/2013 [facility] Weight 199 03/29/2013 [facility] Systolic [...] Provider ADM Date DC Date Status Source [facility] Cardiology Lab Report [id number] Virgilio Rudolph MD 02/18/2013 02/18/2013 Medical [facility] Lab Report [id number] Virgilio Rudolph MD 03/28/2013 03/28/2013 Medical Group [facility] Cardiology SW Office Visit [id number] Virgilio Rudolph MD 03/29/2013 03/29/[address] [facility] JIM [id number] Stan RUDOLPH III 04/01/2013 04/01/2013 Discharged [facility] Cardiology SW Office Visit [id number] Virgilio Rudolph MD 05/04/2013 05/04/2013 Medical [facility] [place] [facility] [place] Lab Report [id number] Virgilio Rudolph MD 05/09/2013 05/09/2013 Medical [facility] Bedded Outpatient [id number] Whitney Morse 12/14/2014 12/14/2014 [facility] Cardiology Office Visit [id number] Virgilio Rudolph MD 01/19/2015 01/19/2015 Medical [facility] OBS Day Surgery [id number] Danilo Awan 01/20/2015 01/20/2015 [facility] Outpatient [id number] VIRGILIO RUDOLPH 08/26/2016 Active [facility] Outpatient Imaging - [place] Outpt Diag Services [id number] Isabel Palvadi 05/04/2017 05/05/2017 [facility] Outpatient Imaging - [place] Outpt Diag Services [id number] Isabel Palvadi 06/14/2017 06/15/2017 [facility] [place] Outpatient [id number] ECHO VISIT 08/06/2017 Active [facility] Outpatient [id number] Virgilio Rudolph III 08/06/2017 08/07/2017 Medical [facility] Outpatient [id number] MORENO AVENDANO 08/07/2017 Active [facility] Cardiology [place] Outpatient [id number] Moreno Avendano 08/07/2017 08/08/2017 Medical Group [facility] Cardiology [place] Phone Message [id number] 08/20/2017 08/22/2017 Medical Group [facility] Cardiology [place] Outside Medical Records [id number] 09/05/2017 09/07/2017 Medical Group Outpatient [id number] MORENO AVENDANO 09/12/2017 Active [facility] [place] Outpatient [id number] Vasiliy Wiley 09/12/2017 09/13/2017 Medical Group [facility] Outpatient [id number] Moreno Avendano 09/17/2017 09/18/2017 [facility] [id number] MORENO AVENDANO 09/30/2017 Active [facility] [place] Outpatient [id number] Vasiliy Wiley 09/30/2017 10/01/2017 [facility] Outpatient [id number] ECHO VISIT 10/01/2017 Active [facility] [place] Outpatient [id number] Vasiliy Wiley 10/01/2017 10/02/2017 [facility] Outpatient [id number] NUCLEAR SCAN VISIT 10/31/2017 Active [facility] Outpatient [id number] PÉREZ YA 10/31/2017 Active [facility] Outpatient [id number] MORENO AVENDANO 10/31/2017 Active [facility]iology [place] Outpatient [id number] Vasiliy Wiley 10/31/2017 11/01/2017 Medical Group [facility] [place] Outpatient [id number] Vasiliy Wiley 10/31/2017 11/01/2017 Medical Group [facility] [place] Outpatient [id number] Moreno Avendano 10/31/2017 11/01/2017 [facility] [place] Phone Message [id number] 11/04/2017 11/06/2017 Medical Group [facility] Cardiology [place] Phone Message [id number] 11/10/2017 11/12/2017 [facility] Group Outpatient [id number] PÉREZ YA 11/11/2017 [facility] [place] Outpatient [id number] Vasiliy Wiley 11/11/2017 11/12/2017 [facility] Outpatient [id number] PÉREZ YA 12/23/2017 Active [facility]iology [place] Outpatient [id number] Vasiliy Wiley 12/23/2017 12/24/2017 [facility] Group Outpatient [id number] MORENO AVENDANO 12/29/2017 Active [facility] [place] [facility] Pre-Reg [id number] Moreno Lisset 12/29/2017 12/29/2017 Medical Group [facility]iology [place] Phone Message [id number] 02/06/2018 02/08/2018 Medical Group Outpatient [id number] MORENO AVENDANO 02/10/2018 Active [facility] [place] [facility] Pre-Reg [id number] Moreno Avendano 02/10/2018 02/10/2018 Medical Group [facility] Cardiology [facility] Outside Medical Records [id number] 04/03/2018 04/05/2018 Medical Group [facility] Bedded Outpatient [id number] Whitney Morse 04/14/2018 04/14/2018 [facility] Bedded Outpatient [id number] Whitney Morse 04/28/2018 04/28/2018 [facility] [place] Phone Message [id number] 05/04/2018 05/06/2018 Medical Group [facility] Outpatient Imaging [facility] Outpt Diag Services [id number] Rebecca Paige 05/10/2018 05/11/2018 [facility] [place] Phone Message [id number] 05/15/2018 05/17/2018 Medical Group [facility] Outpatient Imaging - [place] Outpt Diag Services [id number] Whitney Morse 06/01/2018 06/02/2018 [facility] [place] [facility]iology [place] Phone Message [id number] 06/05/2018 06/07/2018 Medical Group Outpatient [id number] ECHO VISIT 07/31/2018 Active [facility] Outpatient [id number] PÉREZ YA 07/31/2018 Active [facility] Outpatient [id number] MORENO AVENDANO 07/31/2018 Active [facility] [place] Phone Message [id number] 09/04/2018 09/06/2018 Medical Group [facility] Cardiology [place] Outside Medical Records [id number] 11/23/2018 11/25/2018 Medical Group [facility] Outpatient Imaging - [place] Outpt Diag Services [id number] Isabel Salmichelle 12/19/2018 12/20/2018 [facility] [place] Outpatient [id number] MORENO LISSET 01/29/[address] [facility] Cardiology [facility] Ambulatory Pre-Reg [id number] Moreno Lisset 01/29/2019 01/29/2019 [facility] Procedures Procedure Code Date Perfomer Comments Source Arthroplasty of hip, total, with use of methyl methacrylate [id number] [facility] Arthroplasty of knee [id number] [facility] Bladder operation [id number] [facility] Cataract surgery [id number] [facility] Arthroplasty of hip, total, with use of methyl methacrylate [id number] [facility] Arthroplasty of knee [id number] [facility] Bladder operation [id number] [facility] Cataract surgery [id number] [facility] Arthroplasty of hip, total, with use of methyl methacrylate [id number] [facility] [place] [facility] Arthroplasty of knee [id number] [id number]<sup>[facility]</sup> [id number] 2002 normal [facility] Cataract surgery [id number] [facility] [place] Arthroplasty of hip, total, with use of methyl methacrylate [id number] [facility] Arthroplasty of knee 78981718 [facility] Bladder operation [id number] [facility] Cardiac catheterization<sup>1</sup> [id number] 2003 normal Medical [facility] Cataract surgery [id number] [facility] Cardiac catheterization<sup>1</sup> [id number] 2002 normal [facility] Arthroplasty of hip, total, with use of methyl methacrylate [id number] [facility] [place] Arthroplasty of knee [id number] [facility] [place] Bladder operation [id number] [facility] [place] Cardiac catheterization<sup>1</sup> [id number] 2002 normal [facility] [place] Cataract surgery [id number] [facility] [place] Arthroplasty of hip, total, with use of methyl methacrylate [id number] [place] Arthroplasty of knee [id number] [facility] Bladder operation [id number] [facility] Cardiac catheterization<sup>1</sup> [id number] [address] [facility] Cataract surgery [id number] [facility] Arthroplasty of hip, total, with use of methyl methacrylate [id number] [facility] Arthroplasty of knee 27071505 [facility] Bladder operation [id number] [facility] Cardiac catheterization<sup>1</sup> [id number] 2003 normal [facility] Cataract surgery [id number] [facility] Assessment and Plan No Data Provided for This Section Plan of Care No Data Provided for This Section Social History Social History Date Source Social History TypeResponse Substance Abuse Use: None. Exercise 1 Employment/School Status: Retired. Alcohol Never Smoking Status Never smoker; Exposure to Tobacco Smoke None; Cigarette Smoking Last 365 Days No; Reg Smoking Cessation Counseling No entered on: 07/31/18 1none 09/17/2017 [facility] Social History TypeResponse Substance Abuse Use: None. Exercise 1 Employment/School Status: Retired. Alcohol Never Smoking Status Never smoker; Exposure to Tobacco Smoke None; Cigarette Smoking Last 365 Days No; Reg Smoking Cessation Counseling No entered on: 07/31/18 1none 09/17/2017 [facility] Social History TypeResponse Substance Abuse Use: None. Exercise 1 Employment/School Status: Retired. Alcohol Never Smoking Status Never smoker; Exposure to Tobacco Smoke None; Cigarette Smoking Last 365 Days No; Reg Smoking Cessation Counseling No entered on: 07/31/18 1none 09/17/2017 [facility] Social History TypeResponse Substance Abuse Use: None. Exercise 1 Employment/School Status: Retired. Alcohol Never Smoking Status Never smoker; Exposure to Tobacco Smoke None; Cigarette Smoking Last 365 Days No; Reg Smoking Cessation Counseling No entered on: 07/31/18 1none 09/17/2017 ERI[facility] Garcia Social History TypeResponse Substance Abuse Use: None. Exercise 1 Employment/School Status: Retired. Alcohol Never Smoking Status Never smoker; Exposure to Tobacco Smoke None; Cigarette Smoking Last 365 Days No; Reg Smoking Cessation Counseling No entered on: 12/23/17 1none 09/17/2017 [facility] Social History TypeResponse Substance Abuse Use: None. Exercise 1 Employment/School Status: Retired. Alcohol Never Smoking Status Never smoker; Exposure to Tobacco Smoke None; Cigarette Smoking Last 365 Days No; Reg Smoking Cessation Counseling No entered on: 07/31/18 1none 09/17/2017 [facility] Family History No Data Provided for This Section Advance Directives No Data Provided for This Section Functional Status No Data Provided for This Section
--- OUTSIDE RECORDS SUMMARY | 2019-02-07 12:13 | XMS REPORT | Summary of Care ---
Author Author [facility] Cardiology [facility] Organization [facility] Address Unknown Phone Unavailable Encounter HQ Jhonatan(FIN) [id number] Date(s): 01/29/19 - 01/29/19 [facility] [address] [place] [address]- Attending Physician: Prasanna Darling MD Referring Physician: [...] Completed Cardiac catheterization1 Completed Cataract surgery Completed 11756 normal Social History Social History Type Response Substance Abuse Use: None. Exercise 1 Employment/School Status: Retired. Alcohol Never Smoking Status Never smoker; Exposure to Tobacco Smoke None; Cigarette Smoking Last 365 Days No; Reg Smoking Cessation Counseling No entered on: 07/31/18 1none Assessment and Plan No data available for this section
== END 2019-02-07 12:53 | disposition home or self-care (01) ==
LOC: ER 12:07
DX: L24.0 Irritant contact dermatitis due to detergents (principal); I10 Essential (primary) hypertension; E11.9 Type 2 diabetes mellitus without complications; E78.5 Hyperlipidemia, unspecified
CPT/HCPCS: 99283

== ENCOUNTER 2020-12-04 16:50 | Emergency (ER) | payer MEDICARE ==
[~2020-12-04] VITALS: Ht 160 cm; Wt 80.7 kg
[~2020-12-04 16:50] MED LIST changes: +ARICEPT5 MG PO; +ASPIR 8181 MG PO; +BETAMETHASONE D15 G2 TOP; +NEOMYCIN-POLYMY10 ML OP/OT; +NEXIUM40 MG PO; +RANITIDINE HCL300 MG PO; +VITAMIN D1000 UNI1 PO
[2020-12-04] MEDS ORDERED: ASPIRIN 81 MG CHEW TAB PO ONE (17:00)
[2020-12-04 17:42] LABS: BASOPHILS % 0.8 % (0.0-1.0); EOSINOPHILS # (AUTO) 0.1 (0.0-0.4); EOSINOPHILS % 1.6 % (0.0-6.0); HEMATOCRIT 34.9 % (34.2-44.1); HEMOGLOBIN 11.4 g/dL (12.0-16.0); LYMPHOCYTES # (AUTO) 1.6 (1.0-3.2); LYMPHOCYTES % 32.4 % (18.0-39.1); MEAN CORPUSCULAR HEMOGLOBIN 32.2 pg (28-32); MEAN CORPUSCULAR HGB CONC 32.7 g/dL (31-35); MEAN CORPUSCULAR VOLUME 98.6 fL (81-99); MONOCYTES # (AUTO) 0.5 (0.2-0.8); MONOCYTES % 9.6 % (4.4-11.3); NEUTROPHILS # (AUTO) 2.7 (2.1-6.9); NEUTROPHILS % 55.4 % (38.7-80.0); PLATELET COUNT 249 x10e3/uL (140-360); RED BLOOD COUNT 3.54 x10e6/uL (3.6-5.1); RED CELL DISTRIBUTION WIDTH 13.1 % (11.7-14.4)
[2020-12-04 17:48] LABS: INR 0.99; PARTIAL THROMBOPLASTIN TIME 32.4 seconds (23.8-35.5); PROTHROMBIN TIME 13.7 seconds (11.9-14.5)
[2020-12-04 17:58] LABS: ALBUMIN/GLOBULIN RATIO 1.2 (0.8-2.0); ANION GAP 14.9 mmol/L (8-16); CALCIUM 8.6 mg/dL (8.4-10.2); CREATININE, SERUM 0.93 mg/dL (0.57-1.11); POTASSIUM 4.9 mmol/L (3.5-5.1)
[2020-12-04 18:05] LABS: CREATINE KINASE MB 0.5 ng/mL (0-5.0)
[2020-12-04 20:07] VITALS: BP 138/64
== END 2020-12-04 20:09 | disposition home or self-care (01) ==
LOC: ER 17:20
DX: R07.9 Chest pain, unspecified (principal); R06.02 Shortness of breath; Z99.81 Dependence on supplemental oxygen; I12.9 Hypertensive chronic kidney disease with stage 1 through stage 4 chronic kidney disease, or unspecified chronic kidney disease; N18.9 Chronic kidney disease, unspecified; E78.5 Hyperlipidemia, unspecified; Z86.718 Personal history of other venous thrombosis and embolism
CPT/HCPCS: 36415; 71045; 80053; 82550; 82553; 83880; 84484; 85025; 85610; 85730; 99284

== ENCOUNTER → 2022-02-18 | Outpatient (CLI) | payer MEDICARE ==
[~2022-02-18] MED LIST changes: +ALBUMIN 25% 12.5GM 50ML 100 ML IV ONE; +IOPAMIDOL 300 MG/ML 15ML VIAL IT ONE
[2022-02-18 14:07] LABS: INR 0.9
[2022-02-18 14:08] LABS: PARTIAL THROMBOPLASTIN TIME 20.4 seconds (23.8-35.5)
[2022-02-18 14:09] LABS: CREATININE, SERUM 1.09 mg/dL (0.57-1.11)
== END ==
LOC: DX 12:03
PROVIDERS: ATTEND Family Medicine
DX: M54.16 Radiculopathy, lumbar region (principal)
CPT/HCPCS: 36415; 62304; 72132; 77003; 82565; 84520; 85014; 85049; 85610; 85730; Q9967

== ENCOUNTER 2022-02-26 20:39 | Inpatient (IN) | payer MEDICARE ==
[~2022-02-26] VITALS: Ht 154.9 cm; Wt 98.0 kg
[~2022-02-26 20:39] MED LIST changes: -ALBUMIN 25% 12.5GM 50ML 100 ML IV ONE; -IOPAMIDOL 300 MG/ML 15ML VIAL IT ONE
[2022-02-27] MEDS ORDERED: ONDANSETRON HCL 4 MG ORAL DISINTEGRATING TAB PO ONE (00:45)
[2022-02-27] MEDS ORDERED: ACETAMINOPHEN/CODEINE 300MG - 30MG TAB PO ONE (00:45)
[2022-02-27] MEDS ORDERED: ONDANSETRON HCL 4 MG ORAL DISINTEGRATING TAB ONE (00:56)
[2022-02-27] MEDS ORDERED: Morphine 4mg INJECTION 4 MG/ML INJ ONE (03:56)
[2022-02-27] MEDS ORDERED: ONDANSETRON HCL INJ 2MG/ML 2ML 2 MG/ML VIAL ONE (03:57)
[2022-02-27 04:41] LABS: INR 1.06; PROTHROMBIN TIME 14.8 seconds (11.9-14.5)
[2022-02-27 04:42] LABS: BASOPHILS % 0.2 % (0.0-1.0); HEMATOCRIT 37.2 % (34.2-44.1); HEMOGLOBIN 12.1 g/dL (12.0-16.0); LYMPHOCYTES # (AUTO) 0.6 (1.0-3.2); LYMPHOCYTES % 5.4 % (18.0-39.1); MEAN CORPUSCULAR HEMOGLOBIN 31.4 pg (28-32); MEAN CORPUSCULAR HGB CONC 32.5 g/dL (31-35); MEAN CORPUSCULAR VOLUME 96.6 fL (81-99); MONOCYTES # (AUTO) 0.8 (0.2-0.8); MONOCYTES % 7.3 % (4.4-11.3); NEUTROPHILS # (AUTO) 9.4 (2.1-6.9); NEUTROPHILS % 86.6 % (38.7-80.0); PLATELET COUNT 288 x10e3/uL (140-360); RED BLOOD COUNT 3.85 x10e6/uL (3.6-5.1); RED CELL DISTRIBUTION WIDTH 12.7 % (11.7-14.4)
[2022-02-27 04:46] LABS: ALBUMIN 3.4 g/dL (3.5-5.0); ALBUMIN/GLOBULIN RATIO 0.9 (0.8-2.0); ANION GAP 18.3 mmol/L (8-16); CALCIUM 8.5 mg/dL (8.4-10.2); CREATININE, SERUM 1.48 mg/dL (0.57-1.11)
[2022-02-27 04:47] LABS: POTASSIUM 5.3 mmol/L (3.5-5.1)
[2022-02-27] MEDS ORDERED: MYRBETRIQ8 MG/1 ML (09:53)
[2022-02-27] MEDS ORDERED: ELIQUIS2.5 MG PO (09:53)
[2022-02-27] MEDS ORDERED: METOPROLOL SUCC50 MG PO (09:53)
[2022-02-27] MEDS ORDERED: ATROVENT HFA12.9 GM INH (09:55)
[2022-02-27] MEDS ORDERED: NAMENDA10 MG PO (10:05)
[2022-02-27] MEDS ORDERED: CLARITIN10 MG PO (10:05)
[2022-02-27] MEDS ORDERED: VITAMIN B122500 MCG PO (10:05)
[2022-02-27] MEDS ORDERED: NEURONTIN100 MG PO (10:05)
[2022-02-27] MEDS ORDERED: NEXIUM40 MG PO (10:05)
[2022-02-27] MEDS ORDERED: FAMOTIDINE20 MG PO (10:05)
[2022-02-27] MEDS ORDERED: DONEPEZIL HCL10 MG PO (10:05)
[2022-02-27] MEDS ORDERED: CYMBALTA20 MG PO (10:05)
[2022-02-27] MEDS: Morphine 4mg INJECTION 4 MG/ML INJ IV PRN ×3 (12:06→23:57)
[2022-02-27] MEDS: ONDANSETRON HCL INJ 2MG/ML 2ML 2 MG/ML VIAL IV PRN ×3 (12:07→23:55)
[2022-02-27] MEDS ORDERED: Morphine 2mg Syringe 2 MG/ML SYR IV ONE (14:15)
[2022-02-27] MEDS ORDERED: VITAMIN D3250 MC1 PO (15:13)
[2022-02-27] MEDS ORDERED: ipratropium (15:13)
[2022-02-27] MEDS ORDERED: FEOSOL325 MG PO (15:13)
[2022-02-27] MEDS ORDERED: LEVOTHYROXINE50 MCG PO (15:13)
[2022-02-27 15:39] VITALS: BP 117/68
[2022-02-27 20:00] VITALS: BP 121/58
[2022-02-27 20:20] VITALS: BP 121/58
[2022-02-27] MEDS ORDERED: DONEPEZIL HCL 5 MG TAB PO SCH (21:00)
[2022-02-27] MEDS ORDERED: FAMOTIDINE 20 MG TAB PO SCH (21:00)
[2022-02-27] MEDS ORDERED: GABAPENTIN 100 MG CAP PO SCH (21:00)
[2022-02-28] VITALS: BP 127/61
[2022-02-28 04:00] VITALS: BP 101/69
[2022-02-28 04:57] LABS: BASOPHILS % 0.3 % (0.0-1.0); EOSINOPHILS # (AUTO) 0.1 (0.0-0.4); EOSINOPHILS % 0.9 % (0.0-6.0); HEMATOCRIT 31.4 % (34.2-44.1); HEMOGLOBIN 10.4 g/dL (12.0-16.0); LYMPHOCYTES # (AUTO) 1.2 (1.0-3.2); MEAN CORPUSCULAR HEMOGLOBIN 31.9 pg (28-32); MEAN CORPUSCULAR HGB CONC 33.1 g/dL (31-35); MEAN CORPUSCULAR VOLUME 96.3 fL (81-99); MONOCYTES # (AUTO) 1.2 (0.2-0.8); MONOCYTES % 12.8 % (4.4-11.3); NEUTROPHILS # (AUTO) 6.5 (2.1-6.9); NEUTROPHILS % 72.3 % (38.7-80.0); PLATELET COUNT 223 x10e3/uL (140-360); RED BLOOD COUNT 3.26 x10e6/uL (3.6-5.1); RED CELL DISTRIBUTION WIDTH 12.9 % (11.7-14.4)
[2022-02-28 05:19] LABS: ALBUMIN 2.9 g/dL (3.5-5.0); ALBUMIN/GLOBULIN RATIO 0.8 (0.8-2.0); CALCIUM 7.9 mg/dL (8.4-10.2); CREATININE, SERUM 1.66 mg/dL (0.57-1.11)
[2022-02-28] MEDS ORDERED: LEVOTHYROXINE SODIUM 25 MCG TABLET PO SCH (06:00)
[2022-02-28 07:19] VITALS: BP 118/87
[2022-02-28] MEDS ORDERED: FAMOTIDINE 20 MG TAB PO SCH (07:30)
[2022-02-28 08:00] VITALS: BP 118/87
[2022-02-28] MEDS: APIXAB 2.5 MG TABLET PO SCH ×2 (08:56→17:29)
[2022-02-28] MEDS: DULOXETINE HCL 30 MG DELAYED RELEASE PO SCH ×2 (08:56→17:29)
[2022-02-28] MEDS: MEMANTINE 10 MG TAB PO SCH ×2 (08:56→17:29)
[2022-02-28] MEDS ORDERED: PANTOPRAZOLE SOD 40 MG TABEC PO SCH (09:00)
[2022-02-28] MEDS ORDERED: METOPROLOL SUCCINATE 50 MG TAB XL PO SCH (09:00)
[2022-02-28] MEDS ORDERED: FERROUS SULFATE 325 MG TAB PO SCH (09:00)
[2022-02-28] MEDS ORDERED: LORATADINE 10 MG TAB PO SCH (09:00)
[2022-02-28] MEDS: Morphine 4mg INJECTION 4 MG/ML INJ IV PRN ×3 (09:04→19:35)
[2022-02-28] MEDS: ONDANSETRON HCL INJ 2MG/ML 2ML 2 MG/ML VIAL IV PRN ×2 (09:08→19:35)
[2022-02-28] MEDS ORDERED: METHOCARBAMOL 750 MG TAB PO PRN (10:45)
[2022-02-28 11:34] VITALS: BP 101/66
[2022-02-28] MEDS ORDERED: SODIUM CHLORIDE 0.9% 1000ML 1,000 ML IV SCH (13:45)
[2022-02-28 15:26] VITALS: BP 110/63
[2022-02-28] MEDS ORDERED: METHOCARBAMOL 750 MG TAB PO SCH (18:00)
[2022-03-01] MEDS ORDERED: DOCUSATE SODIUM 100 MG CAP PO SCH (09:00)
[2022-03-01] MEDS ORDERED: FAMOTIDINE 20 MG TAB PO SCH (11:30)
== END 2022-02-28 19:45 | DRG 543 ==
LOC: ER 02-27 00:33 → ERHOLD 02-27 04:52 → MED/SURG 02-27 13:54
PROVIDERS: ADMIT Family Medicine; ATTEND Family Medicine
DX: M80.872A Other osteoporosis with current pathological fracture, left ankle and foot, initial encounter for fracture (principal); M97.02XA Periprosthetic fracture around internal prosthetic left hip joint, initial encounter; Z68.41 Body mass index [BMI] 40.0-44.9, adult; W07.XXXA Fall from chair, initial encounter; E03.9 Hypothyroidism, unspecified; Z86.718 Personal history of other venous thrombosis and embolism; Z79.01 Long term (current) use of anticoagulants; Z86.711 Personal history of pulmonary embolism; Z88.1 Allergy status to other antibiotic agents; Z88.5 Allergy status to narcotic agent; Z88.0 Allergy status to penicillin; Z88.8 Allergy status to other drugs, medicaments and biological substances; I10 Essential (primary) hypertension; R42 Dizziness and giddiness; K20.90 Esophagitis, unspecified without bleeding; Z20.822 Contact with and (suspected) exposure to COVID-19; Z96.642 Presence of left artificial hip joint; Z96.652 Presence of left artificial knee joint; M17.0 Bilateral primary osteoarthritis of knee; E66.01 Morbid (severe) obesity due to excess calories
CPT/HCPCS: 36415; 73523; 80053; 85025; 85610; 85730; 94799; 99284; J2270; J2405; J7030; Q0162